=== PATIENT | female | born 1935 | race Caucasian/White ===

== ENCOUNTER 2021-11-06 11:52 | Outpatient (CLI) | payer MEDICARE, BC, SELFPAY ==
--- NOTE | ~2021-11-06 | XR_ITS ---
XR knee RT min 4V 11/06/2021 12:24 Indication: Right knee Procedure: 4 views right knee Comparison: No prior studies for comparison. Findings: There is a right total knee arthroplasty. No fracture, subluxation or dislocation. Prosthes is well seated. No significant joint effusion. Impression: 1: No acute bone or joint abnormality. Reviewed, dictated and finalized at location A. Impression: 1: No acute bone or joint abnormality.
== END 2021-11-06 11:53 | disposition home or self-care (01) ==
LOC: CHSIMG 12:03
PROVIDERS: PCP Internal Medicine; Visit Provider Internal Medicine
DX: M25.561 Pain in right knee (principal); Z96.651 Presence of right artificial knee joint
CPT/HCPCS: 73564

== ENCOUNTER 2022-09-25 19:12 | Emergency (ER) | payer MEDICARE, BC, SELFPAY ==
--- NOTE | ~2022-09-25 | CT_ITS ---
EXAMINATION: CT brain wo con DATE: 09/25/2022 19:48 INDICATION: FALL. HEAD INJURY. LACERATION TO LEFT EYEBROW. . TECHNIQUE: Computed tomography (CT) of the head was performed without intravenous contrast. The mA wa s adjusted according to patient size. Iterative reconstruction technique was employed. The dose-lengt h product was 605.33 mGy-cm. COMPARISON: None. FINDINGS: No acute intracranial hemorrhage or extra-axial fluid collection. No hydrocephalus, mass, or herniation. No acute ischemic infarct. Unremarkable dural venous sinus attenuation. No acute osseous abnormality. Left frontal soft tissue contusion. Air-fluid level in the right maxillary sinus. Right inferior frontal and bilateral ethmoid air cell m ucosal thickening, the remaining aerated spaces are clear. Mild atrophy and chronic white matter change. Atherosclerotic intracranial calcification. Bilateral l ens replacements. 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 IMPRESSION: No acute intracranial process. Right maxillary sinus air-fluid level may be related to acute sinusiti s or mucosal hemorrhage. Reviewed, dictated and finalized at location K. IMPRESSION: No acute intracranial process. Right maxillary sinus air-fluid level may be rel ated to acute sinusitis or mucosal hemorrhage.
--- NOTE | ~2022-09-25 | CT_ITS ---
EXAMINATION: CT cervical spine wo con DATE: 09/25/2022 19:49 INDICATION: fall. NECK STIFFNESS. TECHNIQUE: Computed tomography (CT) of the cervical spine was performed without intravenous contrast. Automated exposure control and iterative reconstruction technique were employed. The dose-length pro duct was 414.82 mGy-cm. COMPARISON: None. FINDINGS: Vertebral Body Alignment: Intact. Multilevel mild grade 1 listheses at C3-4 and C4-5, likely on a deg enerative basis. Cervical straightening as can occur with positioning and muscle spasm. Craniocervical and atlantoaxial alignment: Severe degenerative change, with osseous fragmentation pos sibly related to old chronic fractures/fractured osteophytes. Alignment intact. Osseous structures/fracture: No evidence of a lytic or blastic process in the visualized spine. No e vidence of acute fracture. . Cervical soft tissues: The paraspinal soft tissues planes are maintained. Degenerative changes: Multilevel severe degenerative disc disease and facet arthropathy. Severe centr al canal narrowing at C6-7. Severe left neural foraminal narrowing at C4-5. Severe bilateral neural f oraminal narrowing at C3-4. IMPRESSION: No acute fracture or traumatic malalignment in the cervical spine. Reviewed, dictated and finalized at location K.
[2022-09-25 19:14] VITALS: BP 155/88; PULSE 88; RESP 20; TEMP 36.7; O2SAT 99
--- NOTE | 2022-09-25 19:16 | ED.FALL ---
HPI - Fall General Chief Complaint: Fall Stated Complaint: fall Source: patient Mode of arrival: ambulatory Limitations: no limitations History of Present Illness HPI Narrative: 87-year-old female was chasing a cat when she fell forwards and sustained -- 1 cm laceration over the left supraorbital region. -- No loss of consciousness. No neck pain. -- Bilateral knee pain. The patient has bilateral prosthetic knees. No bruising noted on the knees. No other injuries noted. MD complaint: fall Onset (ago): hour(s) ( 1 hour ago) Fall from: standing Fall witnessed: no Place fall occurred: home Loss of consciousness: none Prolonged down time: no Symptoms prior to fall: none Location of injury: head and other ( bilateral knees) Location of injury - extremities: Bilateral: knee Severity: mild Related Data Home Medications Medication Instructions Recorded Confirmed anastrozole 1 mg tablet 1 mg PO DAILY 09/25/22 09/25/22 aspirin 81 mg tablet 81 mg PO DAILY 09/25/22 09/25/22 diltiazem HCl 180 mg 180 mg PO DAILY 09/25/22 09/25/22 capsule,extended release 24 hr levothyroxine 50 mcg tablet 50 mcg DAILY 09/25/22 09/25/22 lisinopril 20 20 tablet PO DAILY 09/25/22 09/25/22 mg-hydrochlorothiazide 12.5 mg tablet Allergies Allergy/AdvReac Type Severity Reaction Status Date / Time No Known Drug Allergies Allergy Unknown Other Verified 09/25/22 20:18 Review of Systems Review of Systems: All systems reviewed & are unremarkable except as noted in HPI and below Constitutional: Constitutional: Reports as per HPI and Reports no additional constitutional complaints Eyes: Eyes: Reports as per HPI and Reports no additional eye complaints ENT: Reports system reviewed and no additional complaints, except as documented and Reports as per HPI Cardiovascular: Cardiovascular: Reports as per HPI and Reports no additional cardiovascular complaints Respiratory: Respiratory: Reports as per HPI and Reports no additional respiratory complaints Gastrointestinal: Gastrointestinal: Reports as per HPI and Reports no additional gastrointestinal complaints Genitourinary: Genitourinary: Reports no additional female genitourinary complaints and Reports as per HPI Musculoskeletal: Musculoskeletal: Reports no additional musculoskeletal complaints and Reports as per HPI Integumentary/Breasts: Skin/Breast: Reports system reviewed and no additional complaints, except as docu Comments: left supraorbital 1 cm laceration. Neurologic: Reports system reviewed and no additional complaints, except as documented and Reports as per HPI Psychiatric: Psychiatric: Reports no additional psychiatric complaints and Reports as per HPI Endocrine: Endocrine: Reports no additional endocrine complaints and Reports as per HPI Hematologic/Lymphatic: Hematologic/Lymphatic: Reports no additional hematologic/lymphatic complaints and Reports as per HPI Allergic/Immunologic: Allergic/Immunologic: Reports no additional allergic/immunologic complaints and Reports as per HPI Exam Const: General: no acute distress Orientation/consciousness: patient oriented x3 Limitations: no limitations HENMT: Head images: 1. 1 cm vertical incision over the left supraorbital region. Full-thickness laceration Ears: external ears normal Face/Nose/Sinus: Normal external nose present Face and sinus: normal facial exam Mouth: Yes Normal oral and palatal mucosa present Throat: posterior oropharynx normal Eyes: Conjunctivae: conjunctivae normal Pupils: Equal, round and reactive pupils present EOM: EOMs intact bilaterally Direct Ophthalmoscopy: no photophobia Neck: Neck: normal visual inspection, no lymphadenopathy and no meningeal signs Chest: Chest palpation & inspection: normal inspection of the chest Resp: Effort & Inspection: normal respiratory effort Auscultation: clear to auscultation bilaterally Cardio: Rate: regular rate Rhythm: regular rhythm GI: Aus
[2022-09-25] MEDS: SILVER NITRATE (*SP) STICK 1 EACH (19:38)
[2022-09-25] MEDS: TETANUS,DIPHTHERIA,AC PERTUSSIS ADULT 0.5 ML (ADACEL) IM (19:50)
[2022-09-25] MEDS: DOXYCYCLINE HYCLATE 100 MG TABLET PO (21:00)
[2022-09-25 21:01] VITALS: BP 131/81; PULSE 88; RESP 20; TEMP 36.7; O2SAT 99
== END 2022-09-25 21:02 | disposition home or self-care (01) ==
PROVIDERS: Emergency Provider Internal Medicine Critical Care Medicine; PCP Internal Medicine
DX: S01.81XA Laceration without foreign body of other part of head, initial encounter (principal); S09.90XA Unspecified injury of head, initial encounter; M25.562 Pain in left knee; M25.561 Pain in right knee; W01.0XXA Fall on same level from slipping, tripping and stumbling without subsequent striking against object, initial encounter; J01.00 Acute maxillary sinusitis, unspecified; Z96.653 Presence of artificial knee joint, bilateral; Z79.82 Long term (current) use of aspirin; Z79.811 Long term (current) use of aromatase inhibitors; Z23 Encounter for immunization
CPT/HCPCS: 12011; 70450; 72125; 90471; 90715; 99284; A9270

== ENCOUNTER 2022-10-13 09:07 | Outpatient (NON) | payer MEDICARE, SELFPAY ==
[2022-10-13 09:38] LABS: Alanine Aminotransferase 20 U/L (14-59); Albumin Level 3.1 g/dL (3.4-5.0); Alkaline Phosphatase 113 U/L (46-116); Anion Gap 9 mmol/L (8-16); Aspartate Amino Transferase 21 U/L (15-37); Bilirubin,Total 0.6 mg/dL (0.00-1.00); Blood Urea Nitrogen 24 mg/dL (7-18); Calcium 8.9 mg/dL (8.5-10.1); Carbon Dioxide 27 mmol/L (21-32); Chloride 104 mmol/L (98-108); Estimated Glomerular Filt Rate 45; Glucose 97 mg/dL (70-99); Magnesium 1.7 mg/dL (1.8-2.4); Osmolality Calculated 294 mOsm/kg (285-295); Potassium 4.6 mmol/L (3.5-5.1); Sodium 140 mmol/L (136-145); Total Protein 6.1 g/dL (6.4-8.2)
== END 2022-10-13 09:08 | disposition home or self-care (01) ==
LOC: CHSLAB 09:09
PROVIDERS: Visit Provider Internal Medicine
DX: I10 Essential (primary) hypertension (principal); E61.2 Magnesium deficiency
CPT/HCPCS: 80053; 83735

== ENCOUNTER 2023-01-28 10:21 | Outpatient (NON) | payer MEDICARE, SELFPAY ==
[2023-01-28 10:34] LABS: Basophils Absolute Auto 0.07 K/mm3 (0.00-0.10); Basophils Percent Auto 0.7 % (0.0-1.0); Eosinophils Percent Auto 4.1 % (1.0-6.0); Hematocrit 40.4 % (35.0-42.0); Hemoglobin 13.2 g/dL (11.7-13.8); Immature Granulocyte Absolute 0.02 K/mm3 (0.00-0.00); Immature Granulocyte Percent A 0.2 % (0.0-0.0); Immature Platelet Fraction Pct 13.9 % (1.0-7.0); Lymphocytes Absolute Auto 2.84 K/mm3 (1.10-4.50); Lymphocytes Percent Auto 29.2 % (18.0-42.0); Mean Corpuscular HGB Conc 32.7 g/dL (32.0-36.0); Mean Corpuscular Hemoglobin 30.8 pg (27.0-31.0); Mean Corpuscular Volume 94.4 fL (78.0-102.0); Mean Platelet Volume 14.6 fl (9.2-11.8); Monocytes Absolute Auto 0.73 K/mm3 (0.10-0.90); Monocytes Percent Auto 7.5 % (2.0-11.0); Neutrophils Absolute Auto 5.7 K/mm3 (1.7-7.2); Neutrophils Percent Auto 58.3 % (50.0-70.0); Platelet Count Result 190 K/mm3 (150-420); Red Blood Count 4.28 M/mm3 (4.20-5.40); Red Cell Distribution Width 13.8 % (11.6-14.4); White Blood Count 9.7 K/mm3 (4.8-10.8)
[2023-01-28 11:20] LABS: Alanine Aminotransferase 38 U/L (14-59); Albumin Level 3.5 g/dL (3.4-5.0); Alkaline Phosphatase 113 U/L (46-116); Anion Gap 11 mmol/L (8-16); Aspartate Amino Transferase 30 U/L (15-37); Bilirubin,Total 0.5 mg/dL (0.00-1.00); Blood Urea Nitrogen 28 mg/dL (7-18); Calcium 9.5 mg/dL (8.5-10.1); Carbon Dioxide 26 mmol/L (21-32); Chloride 104 mmol/L (98-108); Estimated Glomerular Filt Rate 39; Glucose 103 mg/dL (70-99); Magnesium 2.1 mg/dL (1.8-2.4); Osmolality Calculated 297 mOsm/kg (285-295); Potassium 4.5 mmol/L (3.5-5.1); Sodium 141 mmol/L (136-145); Total Protein 6.5 g/dL (6.4-8.2)
== END 2023-01-28 10:22 | disposition home or self-care (01) ==
LOC: CHSLAB 10:22
PROVIDERS: Visit Provider Internal Medicine
DX: I10 Essential (primary) hypertension (principal)
CPT/HCPCS: 36415; 80053; 83735; 85025; 85055

== ENCOUNTER 2023-08-04 11:37 | Outpatient (NON) | payer MEDICARE, SELFPAY ==
[2023-08-04 13:03] LABS: Appearance Urine Sl Cloudy (Clear); Basophils Absolute Auto 0.06 K/mm3 (0.00-0.10); Basophils Percent Auto 0.7 % (0.0-1.0); Bilirubin Urine Negative (Negative); Blood Urine Negative (Negative); Color Urine Light Yellow (Yellow); Eosinophils Absolute Auto 0.31 K/mm3 (0.02-0.50); Eosinophils Percent Auto 3.4 % (1.0-6.0); Glucose Urine UA Negative (Negative); Hematocrit 41.3 % (35.0-42.0); Hemoglobin 13.6 g/dL (11.7-13.8); Immature Granulocyte Absolute 0.03 K/mm3 (0.00-0.00); Immature Granulocyte Percent A 0.3 % (0.0-0.0); Immature Platelet Fraction Pct 15.4 % (1.0-7.0); Ketones Urine Negative (Negative); Leukocyte Esterase Ur 1+ LEU/UL (Negative); Lymphocytes Absolute Auto 2.52 K/mm3 (1.10-4.50); Lymphocytes Percent Auto 27.4 % (18.0-42.0); Mean Corpuscular HGB Conc 32.9 g/dL (32-36); Mean Corpuscular Hemoglobin 31.3 pg (27.0-31.0); Mean Corpuscular Volume 94.9 fL (78.0-102.0); Mean Platelet Volume 14.9 fl (9.2-11.8); Monocytes Absolute Auto 0.68 K/mm3 (0.10-0.90); Monocytes Percent Auto 7.4 % (2.0-11.0); Neutrophils Absolute Auto 5.61 K/mm3 (1.70-7.20); Neutrophils Percent Auto 60.8 % (50.0-70.0); Nitrate Urine Positive (Negative); Platelet Count Result 159 K/mm3 (150-420); Protein Urine Negative (Negative); Red Blood Count 4.35 M/mm3 (4.20-5.40); Red Cell Distribution Width 13.5 % (11.6-14.4); Specific Grav Ur 1.015 (1.010-1.020); Urobilinogen Urine 0.2 mg/dL (0.2-1.0); White Blood Count 9.2 K/mm3 (4.8-10.8); pH Urine 6.5 (5.0-8.0)
[2023-08-04 13:12] LABS: Add Urine Microscopic? YES; Bacteria Urine 3+ /hpf; RBC Urine None seen /hpf (0-2); Squamous Epithelial Cell Urine Occasional /hpf (Few); WBC Urine 31-50 /hpf (0-3)
[2023-08-04 13:17] LABS: Alanine Aminotransferase 26 U/L (14-59); Albumin Level 3.5 g/dL (3.4-5.0); Alkaline Phosphatase 115 U/L (46-116); Anion Gap 12 mmol/L (4-12); Aspartate Amino Transferase 39 U/L (15-37); Bilirubin,Total 0.4 mg/dL (0.00-1.00); Blood Urea Nitrogen 27 mg/dL (7-18); Calcium 8.9 mg/dL (8.5-10.1); Carbon Dioxide 26 mmol/L (21-32); Chloride 104 mmol/L (98-108); Estimated Glomerular Filt Rate 41; Glucose 77 mg/dL (70-99); Osmolality Calculated 298 mOsm/kg (285-295); Potassium 4.6 mmol/L (3.5-5.1); Sodium 142 mmol/L (136-145); Thyroid Stimulating Hormone 2.79 uIU/mL (0.36-3.74); Total Protein 6.5 g/dL (6.4-8.2)
== END 2023-08-04 11:38 | disposition home or self-care (01) ==
LOC: CHSLAB 11:40
PROVIDERS: PCP Internal Medicine; Visit Provider Internal Medicine
DX: I12.9 Hypertensive chronic kidney disease with stage 1 through stage 4 chronic kidney disease, or unspecified chronic kidney disease (principal); N18.30 Chronic kidney disease, stage 3 unspecified; R06.6 Hiccough; R82.90 Unspecified abnormal findings in urine
CPT/HCPCS: 36415; 80053; 81001; 84443; 85025; 85055; 87077; 87086; 87088; 87186

== ENCOUNTER 2024-01-17 15:47 | Outpatient (CLI) | payer MEDICARE, BC, SELFPAY ==
--- NOTE | ~2024-01-17 | XR_ITS ---
EXAM: XR_KNEE1-2VRT_CR, XR_KNEE1-2VLT_CR DATE: 01/17/2024 16:55 HISTORY: Fall X 3 days, extreme bruising/swelling . COMPARISON: None available. FINDINGS: Osteopenia. No fracture or dislocation. No lytic or blastic lesion. Bilateral uncomplicate d appearing total knee arthroplasty hardware. No erosion or periosteal change. Subcutaneous stranding anterior to the right patellar tendon, possible contusion. Vascular calcifications. IMPRESSION: No acute osseous finding in the right or left knees. No radiographic evidence of hardware -related complication. Reviewed, dictated and finalized at location K. IMPRESSION: No acute osseous finding in the right or left knees. No radiographi c evidence of hardware-related complication.
--- NOTE | ~2024-01-17 | XR_ITS ---
EXAM: XR sinus min 3V, XR orbits min 4V DATE: 01/17/2024 16:55 HISTORY: Fall X 3 days, extreme bruising/discoloration to entire face . COMPARISON: None available. FINDINGS: Normal mineralization. Hyperostosis. No fracture or dislocation. 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 Intact, symmetric orbits. The aerated spaces are clear. No erosion or periosteal change. Soft tissues within normal limits. IMPRESSION: No acute osseous finding in the orbits are sinuses. If pain persists or clinical suspicio n of injury is high, recommend CT of the face for further evaluation. Reviewed, dictated and finalized at [facility] K. IMPRESSION: No acute osseous finding in the orbits are sinuses. If pain persist s or clinical suspicion of injury is high, recommend CT of the face for further evaluation.
[2024-01-17 16:14] LABS: Basophils Absolute Auto 0.06 K/mm3 (0.00-0.10); Basophils Percent Auto 0.6 % (0.0-1.0); Eosinophils Absolute Auto 0.39 K/mm3 (0.02-0.50); Hemoglobin 13.1 g/dL (11.7-13.8); Immature Granulocyte Absolute 0.03 K/mm3 (0.00-0.00); Immature Granulocyte Percent A 0.3 % (0.0-0.0); Immature Platelet Fraction Pct 12.7 % (1.0-7.0); Lymphocytes Absolute Auto 2.92 K/mm3 (1.10-4.50); Lymphocytes Percent Auto 29.6 % (18.0-42.0); Mean Corpuscular HGB Conc 33.6 g/dL (32-36); Mean Corpuscular Hemoglobin 31.6 pg (27.0-31.0); Mean Corpuscular Volume 94.2 fL (78.0-102.0); Mean Platelet Volume 13.7 fl (9.2-11.8); Monocytes Absolute Auto 0.77 K/mm3 (0.10-0.90); Monocytes Percent Auto 7.8 % (2.0-11.0); Neutrophils Absolute Auto 5.69 K/mm3 (1.70-7.20); Neutrophils Percent Auto 57.7 % (50.0-70.0); Platelet Count Result 191 K/mm3 (150-420); Red Blood Count 4.14 M/mm3 (4.20-5.40); White Blood Count 9.9 K/mm3 (4.8-10.8)
[2024-01-17 16:51] LABS: Alanine Aminotransferase 24 U/L (14-59); Albumin Level 3.7 g/dL (3.4-5.0); Alkaline Phosphatase 116 U/L (46-116); Anion Gap 10 mmol/L (4-12); Aspartate Amino Transferase 30 U/L (15-37); Bilirubin,Total 0.5 mg/dL (0.00-1.00); Blood Urea Nitrogen 35 mg/dL (7-18); Calcium 9.1 mg/dL (8.5-10.1); Carbon Dioxide 27 mmol/L (21-32); Chloride 101 mmol/L (98-108); Cholesterol 175 mg/dL (0-200); Estimated Glomerular Filt Rate 29; Free T4 Free Thyroxine 1.01 ng/dL (0.76-1.46); Glucose 89 mg/dL (70-99); HDL Direct 39 mg/dL (40-60); LDL Cholesterol Calculated 100 mg/dL (<130); Osmolality Calculated 293 mOsm/kg (285-295); Potassium 3.9 mmol/L (3.5-5.1); Sodium 138 mmol/L (136-145); Thyroid Stimulating Hormone 2.53 uIU/mL (0.36-3.74); Total Protein 6.8 g/dL (6.4-8.2); Triglycerides 181 mg/dL (0-150)
== END 2024-01-17 15:48 | disposition home or self-care (01) ==
LOC: CHSLAB 15:55
PROVIDERS: PCP Internal Medicine; Visit Provider Nurse Practitioner Family
DX: S89.91XA Unspecified injury of right lower leg, initial encounter (principal); S89.92XA Unspecified injury of left lower leg, initial encounter; S09.92XA Unspecified injury of nose, initial encounter; I10 Essential (primary) hypertension; N18.2 Chronic kidney disease, stage 2 (mild); E03.9 Hypothyroidism, unspecified
CPT/HCPCS: 36415; 70200; 70220; 73560; 80053; 80061; 84439; 84443; 85025; 85055

== ENCOUNTER 2024-01-25 08:44 | Outpatient (CLI) | payer MEDICARE, BC, SELFPAY ==
[2024-01-25 09:30] LABS: Blood Urea Nitrogen 29 mg/dL (7-18); Calcium 9.6 mg/dL (8.5-10.1); Chloride 101 mmol/L (98-108); Estimated Glomerular Filt Rate 37; Glucose 100 mg/dL (70-99); Osmolality Calculated 293 mOsm/kg (285-295); Potassium 4.6 mmol/L (3.5-5.1); Sodium 139 mmol/L (136-145)
[2024-01-25 09:37] LABS: Anion Gap 8 mmol/L (4-12); Carbon Dioxide 30 mmol/L (21-32)
== END 2024-01-25 08:45 | disposition home or self-care (01) ==
LOC: CHSLAB 08:48
PROVIDERS: PCP Internal Medicine; Visit Provider Nurse Practitioner Family
DX: E86.0 Dehydration (principal)
CPT/HCPCS: 36415; 80048

== ENCOUNTER 2024-05-09 18:32 | Emergency (ER) | payer MEDICARE, SELFPAY ==
[2024-05-09] VITALS (20 sets, daily range): BP systolic 128–146; BP diastolic 60–82; PULSE 61; RESP 20; TEMP 36.6; O2SAT 8–100
--- NOTE | ~2024-05-09 | XR_ITS ---
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 RESULT: Lines, tubes, and devices: Right axillary clips. Lungs and pleura: 1.5 cm nodular opacity in the right lower lobe, better seen in the prior CT abdome n pelvis. Senescent changes. No focal consolidation, pleural effusion, or pneumothorax. Cardiomediastinal silhouette: Normal heart size. Mild aortic unfolding. Large hiatal hernia. Other: No acute osseous or upper abdominal finding. IMPRESSION: 1.5 cm right lower lobe nodule, demonstrated to be cavitary in the prior CT, differential includes ma lignancy, infection, septic embolus, or noninfectious granuloma. Reviewed, dictated and finalized at location K. SUPERVISOR IMPRESSION: 1.5 cm right lower lobe nodule, demonstrated to be cavitary in the prior CT, di fferential includes malignancy, infection, septic embolus, or noninfectious gra nuloma.
--- NOTE | ~2024-05-09 | CT_ITS ---
EXAMINATION: CT abdomen pelvis wo con DATE: 05/09/2024 20:27 INDICATION: abd pain, N/V/D x 4 days TECHNIQUE: Computed tomography (CT) of the abdomen and pelvis was performed without intravenous contr ast. Automated exposure control and iterative reconstruction technique were employed. The dose-length product was 751.96 mGy-cm. COMPARISON: None. FINDINGS: Lower thorax: Coronary artery calcifications. Large hiatal hernia. 1.5 cm cavitary, thick-walled, per ipheral right lower lobe nodule. Liver: Multiple hepatic cysts measuring up to 3.2 cm in the left lobe. Biliary/Gallbladder: Gallbladder is normal. No bile duct dilation. Pancreas: No mass or duct dilation. Mild fatty atrophy. Spleen: Normal. Adrenals:No mass. Kidneys: No suspicious mass, obstructing stone, or hydronephrosis. Moderate left and mild right renal atrophy. GI tract: No small or large bowel dilation. Normal appendix. Diverticulosis without diverticulitis. Mesentery/Peritoneum: No ascites, mass, or free air. Retroperitoneum: No mass. Pelvis: Normal urinary bladder. Absent uterus. Soft Tissues: Soft tissues and body wall unremarkable. Bones: No acute osseous finding. IMPRESSION: 1.5 cm cavitary right lower lobe nodule may represent malignancy, infection, septic embolus, or nonin fectious granuloma. No acute abdominopelvic process detected. Reviewed, dictated and finalized at location K. ON SETTER IMPRESSION: 1.5 cm cavitary right lower lobe nodule may represent malignancy, infection, se ptic embolus, or noninfectious granuloma. No acute abdominopelvic process detected.
--- NOTE | 2024-05-09 18:39 | ED.NAVMDI ---
HPI - Nausea/Vomiting/Diarrhea General Chief complaint: Nausea/Vomiting/Diarrhea Stated complaint: DIARRHEA Time Seen by Provider: 05/09/24 18:39 Source: patient and family Mode of arrival: ambulatory Limitations: no limitations History of Present Illness HPI Narrative: Patient is an 88-year-old female with 4 days history of loose stools and diarrhea. She claims that the stool has been black. No associated nausea vomiting. No chest pain or shortness of breath. She has abdominal pain which is of the lower abdomen across the abdomen. No blood thinners and no history of GI bleeds. Patient never had colonoscopy. MD elicited complaint: diarrhea and abdominal pain Pertinent past history: other ( Hypertension, hypothyroid) Onset (ago): day(s) (4) Description of vomiting: none Description of diarrhea: mucus, watery and black tarry Associated nausea: No Associated abdominal pain: Yes Location of pain: diffuse, RLQ, LLQ and suprapubic Radiation: diffuse Pain consistency: constant Severity: moderate Pain scale (0-10): 5 Quality: cramping and sharp Exacerbating factors: none Relieving factors: none Context: other ( patient having diarrhea and dark stools for the past 4 days) Associated symptoms: loss of appetite, malaise, weakness ( generalized) and fatigue Treatment prior to arrival: none Related Data Home Medications ?Medication ?Instructions ?Recorded ?Confirmed ?Last Taken ?Type anastrozole 1 mg tablet 1 mg PO DAILY 09/25/22 05/09/24 09/25/22 History aspirin 81 mg tablet 81 mg PO DAILY 09/25/22 05/09/24 09/25/22 History diltiazem HCl 180 mg 180 mg PO DAILY 09/25/22 05/09/24 09/25/22 History capsule,extended release 24 hr levothyroxine 50 mcg tablet 50 mcg PO DAILY 09/25/22 05/09/24 09/25/22 History montelukast 10 mg tablet 10 mg PO DAILY 05/09/24 05/09/24 Unknown History spironolactone 25 1 tablet PO DAILY 05/09/24 05/09/24 Unknown History mg-hydrochlorothiazide 25 mg tablet Allergies Allergy/AdvReac Type Severity Reaction Status Date / Time No Known Drug Allergies Allergy Unknown Other Verified 05/09/24 18:42 Review of Systems Review of Systems: All systems reviewed & are unremarkable except as noted in HPI and below Constitutional: Constitutional: Reports no additional constitutional complaints Eyes: Eyes: Reports no additional eye complaints ENT: Reports system reviewed and no additional complaints, except as documented Cardiovascular: Cardiovascular: Reports no additional cardiovascular complaints Respiratory: Respiratory: Reports no additional respiratory complaints Gastrointestinal: Gastrointestinal: Reports no additional gastrointestinal complaints Genitourinary: Genitourinary: Reports no additional female genitourinary complaints Musculoskeletal: Musculoskeletal: Reports no additional musculoskeletal complaints Integumentary/Breasts: Skin/Breast: Reports system reviewed and no additional complaints, except as docu Neurologic: Reports system reviewed and no additional complaints, except as documented Psychiatric: Psychiatric: Reports no additional psychiatric complaints Endocrine: Endocrine: Reports no additional endocrine complaints Hematologic/Lymphatic: Hematologic/Lymphatic: Reports no additional hematologic/lymphatic complaints Allergic/Immunologic: Allergic/Immunologic: Reports no additional allergic/immunologic complaints Exam Const: General: ill appearing Nutritional Appearance: well nourished Orientation/consciousness: patient oriented x3 Limitations: no limitations HENMT: Head: normal to inspection Ears: external ears normal Face/Nose/Sinus: Normal external nose present Eyes: Conjunctivae: conjunctivae normal Cornea: corneas normal Pupils: Equal, round and reactive pupils present Neck: Neck: normal visual inspection Chest: Chest palpation & inspection: normal inspection of the chest Resp: Effort & Inspection: normal respiratory effort and not labored Auscultation: clear to auscultation bilaterally and no crackles Cardio: Rate: regular rate Rhythm: regular rhythm Heart sounds: no murmurs GI: Inspection: non-distended GI Palp: Yes Soft to palpation, Yes Tenderness to palpation present (GI) ( diffuse lower abdomen), No Guarding due to palpation present (GI), No Rigid due to palpation, No Hernia present, No Palpable mass present and No Rebound tenderness present Auscultation: Hypoactive bowel sounds present : General: Yes bladder normal to palpation Back/Spine/Pelvis: Back: no CVA tenderness Skin: General skin exam: normal color Rashes: no rashes Wounds: no wounds Neuro: General: patient oriented x3 Cranial nerves: Yes Nystagmus not present Speech: normal speech Gait exam (Neuro): Normal gait present Extrem: General: normal to inspection Psych: Mental Status: mental status grossly normal Affect: normal affect Attitude: cooperative Course Vital Signs Vital signs: Vital Signs Temperature 36.6 C 05/09/24 18:40 Pulse Rate 61 05/09/24 18:40 Respiratory Rate 20 05/09/24 18:40 Blood Pressure 146/82 H 05/09/24 18:40 Pulse Oximetry 98 05/09/24 18:40 Oxygen Delivery Room Air 05/09/24 18:40 Temperature 36.6 C 05/09/24 18:40 Pulse Rate 61 05/09/24 18:40 Respiratory Rate 20 05/09/24 18:40 Blood Pressure 135/69 05/09/24 19:46 Pulse Oximetry 100 05/09/24 21:31 Oxygen Delivery Room Air 05/09/24 18:40 MDM - Nausea/Vomiting/Diarrhea MDM Narrative Medical decision making narrative: patient is an 88-year-old female with diarrhea and dark stools for the past 4 days. We will do a GI workup at this time. Lab Data Attestation: I reviewed the patient's lab results. 05/09/24 19:07 05/09/24 19:07 Labs: Lab Results 05/09/24 05/09/24 05/09/24 Range/Units 19:07 20:35 20:47 WBC 13.7 H (4.8-10.8) K/mm3 RBC 2.82 L (4.20-5.40) M/mm3 Hgb 8.8 L (11.7-13.8) g/dL Hct 26.4 L (35.0-42.0) % MCV 93.6 (78.0-102.0) fL MCH 31.2 H (27.0-31.0) pg MCHC 33.3 (32-36) g/dL RDW 13.8 (11.6-14.4) % Plt Count 193 (150-420) K/mm3 MPV 13.8 H (9.2-11.8) fl Immature Gran % (Auto) 0.6 H (0.0-0.0) % Neut % (Auto) 73.4 H (50.0-70.0) % Lymph % (Auto) 18.1 (18.0-42.0) % [place] % (Auto) 6.5 (2.0-11.0) % Eos % (Auto) 0.9 L (1.0-6.0) % Baso % (Auto) 0.5 (0.0-1.0) % Lymph # (Auto) 2.48 (1.10-4.50) K/mm3 [place] # (Auto) 0.89 (0.10-0.90) K/mm3 Eos # (Auto) 0.13 (0.02-0.50) K/mm3 Baso # (Auto) 0.07 (0.00-0.10) K/mm3 Abs Immat Gran (auto) 0.08 H (0.00-0.00) K/mm3 Absolute Neuts (auto) 10.08 H (1.70-7.20) K/mm3 Absolute Nucleated RBC 0.02 H (0.00-0.00) K/mm3 Nucleated RBC % 0.1 H (0-0.0) % % Immature Plt Fraction 10.3 H (1.0-7.0) % PT 11.1 (9.50-12.1) Seconds INR 1.0 APTT 24.8 (23.9-30.70) Sec Sodium 139 (136-145) mmol/L Potassium 3.4 L (3.5-5.1) mmol/L Chloride 104 (98-108) mmol/L Carbon Dioxide 24 (21-32) mmol/L Anion Gap 11 (4-12) mmol/L BUN 66 H (7-18) mg/dL Creatinine 1.53 H (0.55-1.02) mg/dL Estim Creat Clear Calc 26 ml/min Estimated GFR 32 L (59 - ) Glucose 146 H (70-99) mg/dL Calculated Osmolality 310 H (285-295) mOsm/kg Lactic Acid 2.2 H (0.4-2.0) mmol/L Calcium 8.9 (8.5-10.1) mg/dL Magnesium 1.9 (1.8-2.4) mg/dL Total Bilirubin 0.3 (0.00-1.00) mg/dL AST 21 (15-37) U/L ALT 26 (14-59) U/L Alkaline Phosphatase 80 (46-116) U/L Troponin I 9.5 (0.00-60.4) ng/L Total Protein 6.0 L (6.4-8.2) g/dL Albumin 3.3 L (3.4-5.0) g/dL Lipase 84 H (16-77) U/L Urine Color Light yellow (Yellow) Urine Appearance Clear (Clear) Urine pH 5.5 (5.0-8.0) Ur Specific [place] 1.020 (1.010-1.020) Urine Protein Negative (Negative) Urine Glucose (UA) Negative (Negative) Urine Ketones Negative (Negative) Ur Blood (Man) 1+ H (Negative) Urine Nitrate Positive H (Negative) Urine Bilirubin Negative (Negative) Urine Urobilinogen 0.2 (0.2-1.0) mg/dL Leukocyte Esterase Rfl 2+ H (Negative) KARIME/UL Urine RBC 3-5 H (0-2) /hpf Urine WBC 16-20 H (0-3) /hpf Ur Squamous Epith Cells Few (Few) /hpf Urine Bacteria 2+ H (None) /hpf Stool Occult Blood Positive A (Negative) Blood Type O Positive Antibody Screen Negative 05/09/24 Range/Units 22:00 WBC (4.8-10.8) K/mm3 RBC (4.20-5.40) M/mm3 Hgb (11.7-13.8) g/dL Hct (35.0-42.0) % MCV (78.0-102.0) fL MCH (27.0-31.0) pg MCHC (32-36) g/dL RDW (11.6-14.4) % Plt Count (150-420) K/mm3 MPV (9.2-11.8) fl Immature Gran % (Auto) (0.0-0.0) % Neut % (Auto) (50.0-70.0) % Lymph % (Auto) (18.0-42.0) % [place] % (Auto) (2.0-11.0) % Eos % (Auto) (1.0-6.0) % Baso % (Auto) (0.0-1.0) % Lymph # (Auto) (1.10-4.50) K/mm3 [place] # (Auto) (0.10-0.90) K/mm3 Eos # (Auto) (0.02-0.50) K/mm3 Baso # (Auto) (0.00-0.10) K/mm3 Abs Immat Gran (auto) (0.00-0.00) K/mm3 Absolute Neuts (auto) (1.70-7.20) K/mm3 Absolute Nucleated RBC (0.00-0.00) K/mm3 Nucleated RBC % (0-0.0) % % Immature Plt Fraction (1.0-7.0) % PT (9.50-12.1) Seconds INR APTT (23.9-30.70) Sec Sodium (136-145) mmol/L Potassium (3.5-5.1) mmol/L Chloride (98-108) mmol/L Carbon Dioxide (21-32) mmol/L Anion Gap (4-12) mmol/L BUN (7-18) mg/dL Creatinine (0.55-1.02) mg/dL Estim Creat Clear Calc ml/min Estimated GFR (59 - ) Glucose (70-99) mg/dL Calculated Osmolality (285-295) mOsm/kg Lactic Acid 1.7 (0.4-2.0) mmol/L Calcium (8.5-10.1) mg/dL Magnesium (1.8-2.4) mg/dL Total Bilirubin (0.00-1.00) mg/dL AST (15-37) U/L ALT (14-59) U/L Alkaline Phosphatase (46-116) U/L Troponin I (0.00-60.4) ng/L Total Protein (6.4-8.2) g/dL Albumin (3.4-5.0) g/dL Lipase (16-77) U/L Urine Color (Yellow) Urine Appearance (Clear) Urine pH (5.0-8.0) Ur Specific [place] (1.010-1.020) Urine Protein (Negative) Urine Glucose (UA) (Negative) Urine Ketones (Negative) Ur Blood (Man) (Negative) Urine Nitrate (Negative) Urine Bilirubin (Negative) Urine Urobilinogen (0.2-1.0) mg/dL Leukocyte Esterase Rfl (Negative) KARIME/UL Urine RBC (0-2) /hpf Urine WBC (0-3) /hpf Ur Squamous Epith Cells (Few) /hpf Urine Bacteria (None) /hpf Stool Occult Blood (Negative) Blood Type Antibody Screen Imaging Data Attestation: I personally reviewed and interpreted this imaging study as follows: Radiologist's impression: chest x-ray shows IMPRESSION: 1.5 cm right lower lobe nodule, demonstrated to be cavitary in the prior CT, differential includes malignancy, infection, septic embolus, or noninfectious granuloma. CT scan of the abdomen and pelvis was negative for acute process; discussion of the right lower lobe nodule was also seen again ECG Data EKG #1: Attestation: I personally reviewed and interpreted this ECG as follows: ECG completion date: 05/09/24 ECG completion time: 19:54 EKG Interpretation: normal rate, sinus rhythm, PVCs, non-specific ST changes, ST depression, widened QRS, normal QT and left axis Critical Care Time Critical Care Time Critical Care Time: Yes Total Critical Care Time: 30 Discharge Plan Discharge Clinical Impression: Acute lower gastrointestinal bleeding, ARISTIDES (acute kidney injury), Acute dehydration, Abnormal ECG, Lung mass, Acute UTI Anemia Qualifiers: Anemia type: other cause Other causes of anemia: acute posthemorrhagic Qualified Code(s): D62 - Acute posthemorrhagic anemia Patient Disposition: Acute Care Hospital Condition: Serious Patient Language: [place] Prescriptions: No Action anastrozole 1 mg tablet 1 mg PO DAILY diltiazem HCl 180 mg capsule,extended release 24hr 180 mg PO DAILY levothyroxine 50 mcg tablet 50 mcg PO DAILY Adult Aspirin 81 mg Tablet 81 mg PO DAILY spironolacton-hydrochlorothiaz 25-25 mg tablet 1 tablet PO DAILY montelukast 10 mg tablet 10 mg PO DAILY Follow-up/Referrals: Yosvany Collins MD [Primary Care Provider] - Time of Disposition: 20:47
--- NOTE | 2024-05-09 18:40 | ECG_ITS ---
Test Date: 2024-05-09 19:19:06 Measurements Intervals [place] Rate: 94 P: 74 WA: 170 QRS: 3 QRSD: 97 T: 55 QT: 408 QTc: 512 Interpretive Statements SINUS RHYTHM WITH FREQUENT VENTRICULAR PREMATURE COMPLEXES WITH OCCASIONAL SUPRAVENTRICULAR PREMATURE COMPLEXES NONSPECIFIC ST & T-WAVE ABNORMALITY No previous ECG available for comparison Electronically Signed On 05-11-2024 12:27:10 THIOKOL OPERATOR by Kaleb Moss M.D.
[2024-05-09] MEDS: PANTOPRAZOLE SODIUM IV 40 MG VIAL 80 MG IV PUSH (19:02)
[2024-05-09] MEDS: SODIUM CHLORIDE 0.9% IV 1,000 ML 999 ML IV CONT ×2 (19:03→20:46)
[2024-05-09 19:12] LABS: Basophils Absolute Auto 0.07 K/mm3 (0.00-0.10); Basophils Percent Auto 0.5 % (0.0-1.0); Eosinophils Absolute Auto 0.13 K/mm3 (0.02-0.50); Eosinophils Percent Auto 0.9 % (1.0-6.0); Hematocrit 26.4 % (35.0-42.0); Hemoglobin 8.8 g/dL (11.7-13.8); Immature Granulocyte Absolute 0.08 K/mm3 (0.00-0.00); Immature Granulocyte Percent A 0.6 % (0.0-0.0); Immature Platelet Fraction Pct 10.3 % (1.0-7.0); Lymphocytes Absolute Auto 2.48 K/mm3 (1.10-4.50); Lymphocytes Percent Auto 18.1 % (18.0-42.0); Mean Corpuscular HGB Conc 33.3 g/dL (32-36); Mean Corpuscular Hemoglobin 31.2 pg (27.0-31.0); Mean Corpuscular Volume 93.6 fL (78.0-102.0); Mean Platelet Volume 13.8 fl (9.2-11.8); Monocytes Absolute Auto 0.89 K/mm3 (0.10-0.90); Monocytes Percent Auto 6.5 % (2.0-11.0); Neutrophils Absolute Auto 10.08 K/mm3 (1.70-7.20); Neutrophils Percent Auto 73.4 % (50.0-70.0); Nucleated Red Blood Cells Absolute Auto 0.02 K/mm3 (0.00-0.00); Nucleated Red Blood Cells Perc 0.1 % (0-0.0); Platelet Count Result 193 K/mm3 (150-420); Red Blood Count 2.82 M/mm3 (4.20-5.40); Red Cell Distribution Width 13.8 % (11.6-14.4); White Blood Count 13.7 K/mm3 (4.8-10.8)
[2024-05-09 19:25] LABS: Partial Thromboplastin Time 24.8 Sec (23.9-30.70); Prothrombin Time 11.1 Seconds (9.50-12.1)
[2024-05-09 19:29] LABS: Lactic Acid Reflex 2.2 mmol/L (0.4-2.0)
[2024-05-09 19:42] LABS: Alanine Aminotransferase 26 U/L (14-59); Albumin Level 3.3 g/dL (3.4-5.0); Alkaline Phosphatase 80 U/L (46-116); Anion Gap 11 mmol/L (4-12); Aspartate Amino Transferase 21 U/L (15-37); Bilirubin,Total 0.3 mg/dL (0.00-1.00); Blood Urea Nitrogen 66 mg/dL (7-18); Calcium 8.9 mg/dL (8.5-10.1); Carbon Dioxide 24 mmol/L (21-32); Chloride 104 mmol/L (98-108); Estimated CRCL calculation 26 ml/min; Estimated Glomerular Filt Rate 32; Glucose 146 mg/dL (70-99); Lipase 84 U/L (16-77); Osmolality Calculated 310 mOsm/kg (285-295); Potassium 3.4 mmol/L (3.5-5.1); Sodium 139 mmol/L (136-145)
[2024-05-09 19:43] LABS: Magnesium 1.9 mg/dL (1.8-2.4); Troponin I 9.5 ng/L (0.00-60.4)
[2024-05-09 20:38] LABS: Add Urine Microscopic? YES; Appearance Urine Clear (Clear); Bilirubin Urine Negative (Negative); Blood Urine 1+ (Negative); Color Urine Light Yellow (Yellow); Glucose Urine UA Negative (Negative); Ketones Urine Negative (Negative); Leukocyte Esterase Ur 2+ LEU/UL (Negative); Nitrate Urine Positive (Negative); Protein Urine Negative (Negative); Urobilinogen Urine 0.2 mg/dL (0.2-1.0); pH Urine 5.5 (5.0-8.0)
[2024-05-09 20:45] LABS: Bacteria Urine 2+ /hpf; Squamous Epithelial Cell Urine Few /hpf (Few); WBC Urine 16-20 /hpf (0-3)
[2024-05-09 21:01] LABS: Occult Blood Positive (Negative)
[2024-05-09 22:08] LABS: Reflex Lactic Acid Yes or No Add Lactic
[2024-05-09 22:30] LABS: Lactic Acid 1.7 mmol/L (0.4-2.0)
[2024-05-10] VITALS (12 sets, daily range): BP systolic 132; BP diastolic 80; PULSE 86–97; RESP 10–17; TEMP 36.6; O2SAT 82–99
--- NOTE | 2024-05-12 12:32 | PC.NURSE ---
PRELIMINARY BLOOD CULTURE; NO GROWTH TO DATE. PRELIMINARY URINE CULTURE; ESCHERICHIA COLI, GROUP B STREPTOCOCCUS ISOLATED; WILL WAIT FOR FINAL CULTURE AND SENSITIVITY.
--- NOTE | 2024-05-15 13:53 | PC.NURSE ---
final urine culture reviewed. 10-49,000 ecoli isolated. pt transferred to [facility]. bucket turner on 6th floor contacted and report shared.
--- NOTE | 2024-05-16 14:21 | PC.NURSE ---
blood culture reviewed, no growth 5 days
--- OUTSIDE RECORDS SUMMARY | 2024-05-16 16:31 | XMS_ITS | Clinical Summary ---
Author Organization [facility] [address] [place] [address] Care Team Providers Care Concert Pianist Name Role Phone Yosvany Collins MD Primary Care Provider Allergies Active Allergy Reactions Criticality Noted Date Comments Penicillin Rash Medium 06/16/2022 Medications levothyroxine (SYNTHROID) 50 mcg tablet Take 0.5 tablets (25 mcg total) by mouth daily 3 Active montelukast (SINGULAIR) 10 mg tablet Take 1 tablet (10 mg total) by mouth nightly Active spironolactone -hydroCHLOROth iazide (ALDACTAZIDE) 25-25 mg per tablet Take 1 tablet by mouth daily Active pantoprazole DR (PROTONIX) 40 mg EC tabletIndicati ons:Treatment of Non-Bleeding Gastric Disorder Take 1 tablet (40 mg total) by mouth daily 30 tablet 5 06/11/19 25 Active ciprofloxacin (CIPRO) 500 mg tablet Take 1 tablet (500 mg total) by mouth 2 (two) times a day for 7 days 14 tablet 5 05/19/19 25 Active dilTIAZem CD 180 mg 24 hr capsule Take 1 capsule (180 mg total) by mouth daily 3 05/10/19 25 Discontinued lisinopril-hyd roCHLOROthiazi de (ZESTORETIC) 20-12.5 mg per tablet Take 1 tablet by mouth daily 3 05/10/19 25 Discontinued anastrozole (ARIMIDEX) 1 mg tablet Take 1 mg by mouth daily 05/10/19 25 Discontinued Active Problems Problem Noted Date Diagnosed Date GI bleed 05/10/2024 Bilateral impacted cerumen 06/16/2022 Sensorineural hearing loss (SNHL) of both ears 0 06/16/2022 Encounters Date Type Department Care Team Description 05/11/2024 9:03 AM PAINTER PLATE Anesthesia Event [facility] [address] [place] [phone] Rene Lofton MD 05/11/2024 9:00 AM PAINTER PLATE - 05/11/2024 9:30 AM PAINTER PLATE Surgery [facility] [address] [place] [phone] Jose Le MD COLONOSCOPY 05/10/2024 2:30 PM PAINTER PLATE - 05/10/2024 3:00 PM PAINTER PLATE Surgery [facility] [address] [place] [phone] Jose Le MD EGD 05/10/2024 2:05 PM PAINTER PLATE Anesthesia Event [facility] [address] [place] [phone] Brett Mcgraw MD 05/10/2024 4:45 AM PAINTER PLATE - 05/12/2024 5:30 PM PAINTER PLATE Hospital Encounter [address] [phone] Cash Tejeda DO Sripada, Sarada, MD Gastrointestinal hemorrhage, unspecified gastrointestinal hemorrhage type [K92.2] (Primary Dx); Gastrointestinal hemorrhage, unspecified gastrointestinal hemorrhage type Discharge Disposition: Discharge to home or self care 05/09/2024 Orders Only [facility] Hospitalists [address] [place] [phone] Cash Tejeda DO from Last 3 Months Surgical History Surgery Date Site/Laterality Comments HYSTERECTOMY 05/09/1974 - 05/08/1975 TONSILLECTOMY 05/09/1960 - 05/08/1961 Bilateral REPLACEMENT TOTAL KNEE 05/09/2011 - 05/08/2012 Bilateral Medical History Medical History Date Comments Breast cancer (HCC) Hypothyroidism History of kidney problems Hypertension Family History Medical History Relation Name Comments Bladder Cancer Brother Brain cancer Brother Breast cancer Sister Relation Name Status Comments Brother Sister Social History Tobacco Use Types Packs/Day Years Used Date Smoking Tobacco: Never Smokeless Tobacco: Never Tobacco Cessation:Counseling Given: Not Answered [facility] Utilities Answer Date Recorded In the past 12 months has th e [place] [employer], gas, oil, or water Eachbaby threatened to shut off services in your home? No 05/10/2024 Social Connection and Isolation Panel [NHANES] A nswer Date Recorded In a typical week, how many times do you talk on the phone with family, friends, or neighbors? Three times a week 05/10/2024 How often do you get togethe r with friends or relatives? Twice a week 05/10/2024 How often do you attend chur ch or denominational services? Never 05/10/2024 Do you belong to any clubs o r organizations such as oriental orthodox groups, unions, fraternal or athletic groups, or school groups? No 05/10/2024 How often do you attend meet ings of the clubs or organizations you belong to? Never 05/10/2024 Are you , , di vorced, , never , or living with a partner? 05/10/2024 AUDIT-C Answer Date Recorded Q1: How often do you have a drink containing alcohol? Never 05/10/2024 Q2: How many drinks containi ng alcohol do you have on a typical day when you are drinking? Patient does not drink Q3: How often do you have si x or more drinks on one occasion? Never 05/10/2024 Overall Financial Resource Strain (CARDIA) Answe r Date Recorded How hard is it for you to pa y for the very basics like food, housing, medical care, and heating? Not hard at all 05/10/2024 Hunger Vital Sign Answer Date Recorded Within the past 12 months, y ou worried that your food would run out before you got the money to buy more. Never true 05/10/19 25 Within the past 12 months, t he food you bought just didn't last and you didn't have money to get more. Never true 05/10/2024 PRAPARE - Transportation Answer Date Re corded In the past 12 months, has l ack of transportation kept you from medical appointments or from getting medications? No 06/2024 In the past 12 months, has l ack of transportation kept you from meetings, work, or from getting things needed for daily living? No 05/10/2024 Housing Stability Vital Sign Answer Tommy e Recorded In the last 12 months, was t here a time when you were not able to pay the mortgage or rent on time? No 05/10/2024 In the past 12 months, how m any times have you moved where you were living? 0 05/10/2024 At any time in the past [address] [facility], were you homeless or living in a chcf (including now)? No 05/10/2024 Personal Safety Answer Date Recorded Have you ever been in or are you currently in a harmful physical or emotional relationship or is someone making you feel afraid or unsafe? Denies 05/10/2024 Comments No Sex and Gender Information Value Date Recorded Sex Assigned at Not on file Legal Sex Female 3:47 PM PAINTER PLATE Gender Identity Not on file Sexual Orientation Not on file Obstetrics History Last Filed Vital Signs Vital Sign Reading Time Taken Comments Blood Pressure 149/68 05/12/2024 12:56 PM PAINTER PLATE Pulse 95 05/12/2024 12:56 PM PAINTER PLATE Temperature 36.5 ??C (97.7 ??F) 05/12/2024 12:[address] Respiratory Rate 18 05/11/2024 10:11 AM PAINTER PLATE Oxygen Saturation 100% 05/12/2024 12:56 PM PAINTER PLATE Inhaled Oxygen Concentration - - Weight 91.2 kg (201 lb) 05/11/2024 8:32 AM PAINTER PLATE Height 165.1 cm (5' 5 ) 05/11/2024 8:32 AM PAINTER PLATE Body Mass Index 33.45 05/11/2024 8:32 AM PAINTER PLATE Plan of Treatment Health Maintenance Due Date Last Done Comments Depression Screening 1935 Hepatitis B Screening 09/14/1953 Well Visit 65+ 09/14/2000 Fall Risk Assessment 05/12/2025 05/12/2024 DTaP/Tdap/Td Vaccine (2 - Td or Tdap) 09/25/2032 09/25/2022 Pneumococcal vaccine 65+ Completed 10/28/2022 Zoster Vaccine Completed 11/28/2023, 09/05/2023 Covid-19 Vaccine Completed 02/07/2024, , 05/13/2022, Additional history exists Influenza Vaccine Completed 02/07/2024, , 03/09/2022 Procedures Procedure Name Priority Date/Time Associated Diagnosis Comments FL SMALL BOWEL SERIES IP Routine 05/12/2024 9:17 AM PAINTER PLATE EGFR Routine 05/12/2024 5:14 AM PAINTER PLATE BASIC METABOLIC PANEL Routine 05/12/2024 5:14 AM PAINTER PLATE COLONOSCOPY 05/11/2024 9:03 AM PAINTER PLATE Gastrointestinal hemorrhage, unspecified gastrointestinal hemorrhage type COLONOSCOPY 05/11/2024 8:42 AM PAINTER PLATE CBC WITHOUT DIFFERENTIAL STAT 025 6:42 AM PAINTER PLATE XR CHEST PA LATERAL 2 VIEWS IP Routine 06/2024 3:45 PM PAINTER PLATE ESOPHAGOGASTRODUODENOSCOPY 05/10 2:05 PM PAINTER PLATE Gastrointestinal hemorrhage, unspecified gastrointestinal hemorrhage type EGD 05/10/2024 1:54 PM PAINTER PLATE EGFR Routine 05/10/2024 6:37 AM PAINTER PLATE DIFFERENTIAL AUTO Routine 05/10/2024 6:37 AM PAINTER PLATE PROTIME-INR Routine 05/10/2024 6:37 AM PAINTER PLATE COMPREHENSIVE METABOLIC PANEL Routine 6:37 AM PAINTER PLATE CBC WITH AUTO DIFFERENTIAL Routine 05/10 6:37 AM PAINTER PLATE from Last 3 Months Results * FL Small Bowel Series (05/12/2024 9:17 AM PAINTER PLATE) Anatomical Region Laterality Modality Body N/A Radio Fluoroscop y 05/12/2024 3:01 PM PAINTER PLATE Impressions 05/12/2024 3:01 PM PAINTER PLATE No evidence of small bowel mass identified. Electronically signed by: Rene Barone M.D. Narrative 05/12/2024 3:01 PM PAINTER PLATE EXAM: ??Small bowel series. HISTORY: Concern for small bowel mass COMPARISON: ??CT 05/04/2024 FINDINGS: ?? The patient was given water soluble contrast to drink and serial overhead films were obtained. ??Normal bowel gas pattern noted on the independent living instructor radiograph. ??Surgical clips noted in the right upper quadrant and pelvis. ??Contrast reaches the colon by 20 minutes. ??No evidence of small bowel mass. Procedure Note Rene Barone MD - 05/12/2024 EXAM: Small bowel series. HISTORY: Concern for small bowel mass COMPARISON: CT 05/04/2024 FINDINGS: The patient was given water soluble contrast to drink and serial overhead films were obtained. Normal bowel gas pattern noted on the independent living instructor radiograph. Surgical clips noted in the right upper quadrant and pelvis. Contrast reaches the colon by 20 minutes. No evidence of small bowel mass. IMPRESSION: No evidence of small bowel mass identified. Electronically signed by: Rene Barone M.D. Missy Shipley MD IMG FLUOROSCOPY PROCEDURES Fin al Result * (ABNORMAL) eGFR (05/12/2024 5:14 AM PAINTER PLATE) eGFR 43(L) >=60 mL/min/1. 73 m2 Comment: Interpretive Data Reference Interval Normal ?>/= 90 mL/min/1.73m2 Mildly decreased* ? 60 - 89 mL/min/1.73m2 Mildly to moderately decreased ?45 - 59 mL/min/1.73m2 Moderately to severely decreased ??30 - 44 mL/min/1.73m2 Severely decreased ?15 - 29 mL/min/1.73m2 Kidney Failure ?< 15 ??mL/min/1.73m2 *Relative to young adult level Estimated glomerular filtration rate is determined by the 2020 CKD-EPI equation recommended by the National Kidney Foundation (A Unifying Approach to GFR Estimation: Recommendations of the NKF-ASK Task Force on Reassessing the Inclusion of Race in Diagnosing Kidney Disease, JASN 2020). The CKD-EPI equation should not be used for patients with unstable renal function and has not been validated in children and those over 70. Current interpretive data was last reviewed 2021. Blood 05/12/2024 5:14 AM PAINTER PLATE 05/12/2024 5:35 AM PAINTER PLATE us Missy Shipley MD LAB BLOOD ORDERABLES Final Res ult [facility] [address] Department [place] [address] * (ABNORMAL) Basic metabolic panel (05/12/2024 5:14 AM PAINTER PLATE) Sodium 145 135 - 145 mmol/L Potassium, pl 3.0(L) 3.3 - 4.9 mmol/L [facility] Chloride 111(H) 97 - 110 mmol/L [facility] CO2 21(L) 22 - 32 mmol/L [facility] Anion gap 13 2 - 15 mmol/L [facility] BUN 24 6 - 25 mg/dL [facility] Creatinine 1.22(H) 0.60 - 1.10 mg/dL [facility] Glucose 98 70 - 199 mg/dL [facility] Comment: Interpretive Data Fasting glucose >/= 126 mg/dl is diagnostic for diabetes. ?? Fasting is defined as no caloric intake for at least 8 hours. Fasting glucose between 100 mg/dl to 125 mg/dl is diagnostic of prediabetes. In a patient with classic symptoms of hyperglycemia or hyperglycemic crisis, a random glucose >/= 200 mg/dl is diagnostic for diabetes. In the absence of unequivocal hyperglycemia, results should be confirmed by repeat testing. The classification and Diagnosis of Diabetes Diabetes Care 2021; 46: S19-S40. Current interpretive data was last revised 2022. Calcium 8.3(L) 8.5 - 10.3 mg/dL [facility] Blood 05/12/2024 5:14 AM PAINTER PLATE 05/12/2024 5:35 AM PAINTER PLATE us Missy Shipley MD LAB BLOOD ORDERABLES Final Res ult [facility] [address] Department [place] [address] * Colonoscopy (05/11/2024 8:42 AM PAINTER PLATE) Anatomical Region Laterality Modality Other Narrative Procedure Note Jose Le MD - 05/11/2024 8:42 AM CST ENDOSCOPY LAB Patient Name: Ana Luisa Yung Procedure Date: 05/11/2024 8:42 AM Admit Type: Inpatient Room: [facility] Date of : 1935 Instrument Name: [id number] Gender: Female Note Status: Finalized Procedure: Colonoscopy Indications: Anemia Providers: Jose Le M.D. Referring MD: Yosvany Collins M.D. Medicines: Propofol per Anesthesia Complications: No immediate complications. Estimated Blood Loss: Estimated blood loss: none. Procedure: Pre-Anesthesia Assessment: - After reviewing the risks and benefits, thepatient was deemed in satisfactory condition to undergo the procedure. - The risks and benefits of the procedure and the sedation options and risks were discussed with the patient. All questions were answered and informed consent was obtained. The benefits, risks and alternatives of theprocedure and sedation were discussed and informed consentwas obtained. All questions were answered. Please referto the signed informed consent document in the medical record. The scope was passed under direct vision.The Colonoscope was introduced through the anus and advanced to the the terminal ileum. The colonoscopy was performed without difficulty. The patient tolerated the procedure well. The quality of thebowel preparation was good. The bowel preparation usedwas Plenvu via split dose instruction. Findings: The perianal and digital rectal examinations were normal. The terminal ileum appeared normal. A few small-mouthed diverticula were found in the sigmoid colon. Non-bleeding internal hemorrhoids were found during retroflexion. The hemorrhoids were small. The exam was otherwise without abnormality. Impression: - The examined portion of the ileum was normal. - Diverticulosis in the sigmoid colon. - Non-bleeding internal hemorrhoids. - The examination was otherwise normal. - No specimens collected. Recommendation: - Return patient to hospital virk for ongoingcare. - Clear liquid diet. - SBS today to evalute small bowel. If negative for mass, can go home on oral iron and follow up withPCP - Repeat colonoscopy is not recommended forscreening purposes. Dr. Jose Le Jose Le M.D. 05/11/2024 9:30:03 AM This document was signed electronically. Number of Addenda: 0 Note Initiated On: 05/11/2024 8:42 AM Scope In: Scope Out: Jose Le MD ENDOSCOPY PROCEDURE S Final Result * (ABNORMAL) CBC without differential (05/11/2024 6:42 AM PAINTER PLATE) WBC 13.9(H) 3.8 - 9.9 K/cumm Hgb 8.3(L) 11.9 - 15.5 g/dL [facility] Hct 25.6(L) 35.6 - 45.5 % [facility] Plt 198 150 - 400 K/cumm [facility] MPV 13.8(H) 9.1 - 12.3 fL [facility] RBC 2.61(L) 3.90 - 5.20 M/cumm [facility] MCV 98.1(H) 81.3 - 96.4 fL [facility] MCH 31.8 27.1 - 33.3 pg [facility] MCHC 32.4 32.3 - 35.7 g/dL [facility] RDW CV 14.1 11.1 - 14.9 % [facility] RDW SD 49.3(H) 35.7 - 48.1 fL [facility] NRBC abs 0.00 0.00 - 0.01 K/cumm [facility] Blood 05/11/2024 6:42 AM PAINTER PLATE 05/11/2024 6:54 AM PAINTER PLATE Jose Le MD LAB BLOOD ORDERABLE S Final Result [facility] [address] Department [place] [address] * XR Chest PA Lateral 2 Views (05/10/2024 3:45 PM PAINTER PLATE) Anatomical Region Laterality Modality Body, Chest N/A Computed Radiogr aphy 05/10/2024 3:55 PM PAINTER PLATE Impressions 05/10/2024 3:55 PM PAINTER PLATE FINDINGS/IMPRESSION: Left axillary surgical clips are seen. Minimal left retrocardiac atelectatic changes are noted. ??No visualized focal consolidation, pleural effusion or pneumothorax. The cardiomediastinal silhouette is grossly unremarkable. Electronically signed by: Catherine Ortiz M.D. Narrative 05/10/2024 3:55 PM PAINTER PLATE EXAMINATION: XR CHEST PA LATERAL 2 VIEWS HISTORY: cough COMPARISON: No prior. Procedure Note Catherine Lopez MD - 05/10/2024 EXAMINATION: XR CHEST PA LATERAL 2 VIEWS HISTORY: cough COMPARISON: No prior. IMPRESSION: FINDINGS/IMPRESSION: Left axillary surgical clips are seen. Minimal left retrocardiac atelectatic changes are noted. No visualized focal consolidation, pleural effusion or pneumothorax. The cardiomediastinal silhouette is grossly unremarkable. Electronically signed by: Catherine Ortiz M.D. Jose Le MD IMG XR PROCEDURES F inal Result * EGD (05/10/2024 1:54 PM PAINTER PLATE) Anatomical Region Laterality Modality Other Narrative Procedure Note Jose Le MD - 05/10/2024 1:54 PM CST ENDOSCOPY LAB Patient Name: Ana Luisa Yung Procedure Date: 05/10/2024 1:54 PM Admit Type: Inpatient Room: [facility] Date of : 1935 Instrument Name: [id number] Gender: Female Note Status: Finalized Procedure: Upper GI endoscopy Indications: Melena Providers: Jose Le M.D. Referring MD: Yosvany Collins M.D. Medicines: Propofol per Anesthesia Complications: No immediate complications. Estimated Blood Loss: Estimated blood loss: none. Procedure: Pre-Anesthesia Assessment: - After reviewing the risks and benefits, thepatient was deemed in satisfactory condition to undergo the procedure. The benefits, risks, and alternatives to theprocedure and sedation were discussed and informed consentwas obtained. The scope was passed under direct vision. The Endoscope was introduced through the mouth, and advanced to the second part of duodenum. The upperGI endoscopy was accomplished without difficulty. The patient tolerated the procedure well. Findings: The examined esophagus was normal. Patchy mild inflammation characterized by erythema was found in the gastric antrum. The exam of the stomach was otherwise normal. The examined duodenum was normal. Impression: - Normal esophagus. - Gastritis. - Normal examined duodenum. - No specimens collected. Recommendation: - Return patient to hospital virk for ongoingcare. - Clear liquid diet. - Perform a colonoscopy tomorrow. Dr. Jose Le Jose Le M.D. 05/10/2024 2:20:17 PM This document was signed electronically. Number of Addenda: 0 Note Initiated On: 05/10/2024 1:54 PM Scope In: Scope Out: us Jose Le MD ENDOSCOPY PROCEDURE S Final Result * (ABNORMAL) eGFR (05/10/2024 6:37 AM PAINTER PLATE) eGFR 44(L) >=60 mL/min/1. 73 m2 Comment: Interpretive Data Reference Interval Normal ?>/= 90 mL/min/1.73m2 Mildly decreased* ? 60 - 89 mL/min/1.73m2 Mildly to moderately decreased ?45 - 59 mL/min/1.73m2 Moderately to severely decreased ??30 - 44 mL/min/1.73m2 Severely decreased ?15 - 29 mL/min/1.73m2 Kidney Failure ?< 15 ??mL/min/1.73m2 *Relative to young adult level Estimated glomerular filtration rate is determined by the 2020 CKD-EPI equation recommended by the National Kidney Foundation (A Unifying Approach to GFR Estimation: Recommendations of the NKF-ASK Task Force on Reassessing the Inclusion of Race in Diagnosing Kidney Disease, JASN 2020). The CKD-EPI equation should not be used for patients with unstable renal function and has not been validated in children and those over 70. Current interpretive data was last reviewed 2021. Blood 05/10/2024 6:37 AM PAINTER PLATE 05/10/2024 7:33 AM PAINTER PLATE Cash Tejeda DO LAB BLOOD ORDERABLES F inal Result [facility] [address] Department [place] [address] * (ABNORMAL) Differential, auto (05/10/2024 6:37 AM PAINTER PLATE) [facility] Neutrophil abs 8.9(H) 1.5 - 6.5 K/cumm Imm gran abs 0.1 0.0 - 0.1 K/cumm [facility] Lymphocyte abs 3.5(H) 0.8 - 3.3 K/cumm [facility] Monocyte abs 0.9(H) 0.2 - 0.8 K/cumm [facility] Eosinophil abs 0.2 0.0 - 0.5 K/cumm [facility] Basophil abs 0.1 0.0 - 0.1 K/cumm [facility] Neutrophil pct 65.3 % [facility] Comment: Interpretive Data Percent cell count reference ranges are not reported, since discordance with absolute values may lead to misinterpretation of CBC data. Current Interpretive Data was last revised on 2017. Imm gran pct 0.5 % [facility] Comment: Interpretive Data Percent cell count reference ranges are not reported, since discordance with absolute values may lead to misinterpretation of CBC data. Current Interpretive Data was last revised on 2017. Lymphocyte pct 25.7 % [facility] Comment: Interpretive Data Percent cell count reference ranges are not reported, since discordance with absolute values may lead to misinterpretation of CBC data. Current Interpretive Data was last revised on 2017. Monocyte pct 6.6 % [facility] Comment: Interpretive Data Percent cell count reference ranges are not reported, since discordance with absolute values may lead to misinterpretation of CBC data. Current Interpretive Data was last revised on 2017. Eosinophil pct 1.5 % [facility] Comment: Interpretive Data Percent cell count reference ranges are not reported, since discordance with absolute values may lead to misinterpretation of CBC data. Current Interpretive Data was last revised on 2017. Basophil pct 0.4 % [facility] Comment: Interpretive Data Percent cell count reference ranges are not reported, since discordance with absolute values may lead to misinterpretation of CBC data. Current Interpretive Data was last revised on 2017. Blood 05/10/2024 6:37 AM PAINTER PLATE 05/10/2024 7:33 AM PAINTER PLATE Cash Tejeda DO LAB BLOOD ORDERABLES F inal Result [facility] [address] Department [place] [address] * (ABNORMAL) CBC with auto differential (05/10/2024 6:37 AM PAINTER PLATE) WBC 13.6(H) 3.8 - 9.9 K/cumm Hgb 8.1(L) 11.9 - 15.5 g/dL [facility] Hct 25.1(L) 35.6 - 45.5 % [facility] Plt 174 150 - 400 K/cumm [facility] MPV 14.5(H) 9.1 - 12.3 fL [facility] RBC 2.56(L) 3.90 - 5.20 M/cumm [facility] MCV 98.0(H) 81.3 - 96.4 fL [facility] MCH 31.6 27.1 - 33.3 pg [facility] MCHC 32.3 32.3 - 35.7 g/dL [facility] RDW CV 13.9 11.1 - 14.9 % [facility] RDW SD 49.4(H) 35.7 - 48.1 fL [facility] NRBC abs 0.00 0.00 - 0.01 K/cumm [facility] Blood 05/10/2024 6:37 AM PAINTER PLATE 05/10/2024 7:33 AM PAINTER PLATE Cash Tejeda DO LAB BLOOD ORDERABLES F inal Result [facility] [address] Department of Laboratories [place], [place] [id number] * Protime-INR (05/10/2024 6:37 AM PAINTER PLATE) Pathologist [facility] [place] PT 12.7 9.7 - 13.0 sec INR 1.17 0.90 - 1.20 [facility] Comment: Interpretive data Oral anticoagulant therapeutic ranges: Venous thromboembolism prophylaxis or treatment: 2.0-3.0 CARDIOLOGY Standard range: 2.0-3.0 High-intensity range: 2.5-3.5 Refer to indication-specific guidelines for appropriate target ranges for prosthetic heart valve replacement. Current interpretive data was last revised on 2019. Blood 05/10/2024 6:37 AM PAINTER PLATE 05/10/2024 7:34 AM PAINTER PLATE us Cash Tejeda DO LAB BLOOD ORDERABLES F inal Result [facility] [address] Department [place] [address] * (ABNORMAL) Comprehensive metabolic panel (05/10/2024 6:37 AM PAINTER PLATE) Sodium 141 135 - 145 mmol/L Potassium, pl 3.3 3.3 - 4.9 mmol/L [facility] Chloride 108 97 - 110 mmol/L [facility] CO2 21(L) 22 - 32 mmol/L [facility] Anion gap 12 2 - 15 mmol/L [facility] BUN 43(H) 6 - 25 mg/dL [facility] Creatinine 1.20(H) 0.60 - 1.10 mg/dL [facility] Glucose 104 70 - 199 mg/dL [facility] Comment: Interpretive Data Fasting glucose >/= 126 mg/dl is diagnostic for diabetes. ?? Fasting is defined as no caloric intake for at least 8 hours. Fasting glucose between 100 mg/dl to 125 mg/dl is diagnostic of prediabetes. In a patient with classic symptoms of hyperglycemia or hyperglycemic crisis, a random glucose >/= 200 mg/dl is diagnostic for diabetes. In the absence of unequivocal hyperglycemia, results should be confirmed by repeat testing. The classification and Diagnosis of Diabetes Diabetes Care 2021; 46: S19-S40. Current interpretive data was last revised 2022. Calcium 8.3(L) 8.5 - 10.3 mg/dL [facility] Bilirubin, total 0.3 0.1 - 1.2 mg/dL [facility] Protein, pl 5.4(L) 6.5 - 8.5 g/dL [facility] Albumin 3.7 3.5 - 5.0 g/dL [facility] Alk phos 73 40 - 130 Units/L [facility] ALT 20 7 - 45 Units/L [facility] AST 25 10 - 45 Units/L [facility] Blood 05/10/2024 6:37 AM PAINTER PLATE 05/10/2024 7:33 AM PAINTER PLATE us Cash Tejeda DO LAB BLOOD ORDERABLES F inal Result [facility] [address] Department [place] [address] from Last 3 Months Insurance MEDICARE [facility] MEDICARE Advance Directives For more information, please contact: [phone] Documents on File Type Date Recorded Patient Armor Reconnaissance Vehicle Driver Expl anation ADVANCE DIRECTIVE 05/14/2024 2:11 PM POLST ADVANCE DIRECTIVE 05/14/2024 1:44 PM LIVING WILL ADVANCE DIRECTIVE 05/14/2024 1:44 PM POWER OF CLINICAL DATA ASSOCIATE-MEDICAL * Full Code (Latest Code Status on File) Date Activated Date Inactivated Comments 05/10/2024 4:45 AM 05/12/2024 9:57 PM Care Teams Concert Pianist Relationship Specialty Start Date End Date Yosvany Collins MD PCP - General Internal Medicine 05/13/22
--- OUTSIDE RECORDS SUMMARY | 2024-05-16 16:31 | XMS_ITS | Encounter Summary ---
Author Organization [facility] Address [address] [place] [address] Phone Care Team Providers Care Piano Technician Name Role Phone Yosvany Collins MD Primary Care Provider [phone] Encounter Details Date Type Department Care Team (Latest Contact Info) Description 06/16/2022 2:30 PM STONE SETTER APPRENTICE Procedure visit [facility] Otolaryngology [address] [place] [id number] Pat Price Au.D. [address] [place] [id number] Sensorineural hearing loss (SNHL), bilateral (Primary Dx) Social History Tobacco Use Types Packs/Day Years Used Date Smoking Tobacco: Never Smokeless Tobacco: Never Comments Unknown Sex and Gender Information Value Date Recorded Sex Assigned at Not on file Legal Sex Female 3:47 PM STONE SETTER APPRENTICE Gender Identity Not on file Sexual Orientation Not on file documented as of this encounter Procedure Notes * Pat Price Au.D. - 06/16/2022 2:30 PM CST Procedures Audiologic Evaluation Referring physician: Patient referred by ALEYDA Manzanares History: Patient reported a history of decreased hearing. Otoscopy: Ear canals clear of cerumen bilaterally. Tympanometry: Right:Type A tymp and is consistent with normal middle ear function. Left: Type A tymp and is consistent with normal middle ear function. Audiometry: Pure tone testing revealed mild sloping to severe SNHL, bilaterally. Word Recognition Score (WRS) in the right ear is 68%, WRS in the left ear is 72%. Counseling: Patient was counseled on audiogram results. Recommendations: -Patient will follow-up with ALEYDA Manzanares for test results and recommendations. E SETTER APPRENTICE documented in this encounter Plan of Treatment Not on file documented as of this encounter Visit Diagnoses Diagnosis Sensorineural hearing loss (SNHL), bilateral- Primary documented in this encounter Care Teams Piano Technician Relationship Specialty Start Date End Date Yosvany Collins MD PCP - General Internal Medicine 05/13/22 documented as of this encounter
--- OUTSIDE RECORDS SUMMARY | 2024-05-16 16:31 | XMS_ITS | Encounter Summary ---
Author Organization [facility] Address [address] [place] [address] Phone Care Team Providers Care Sales Solutions Associate Name Role Phone Yosvany Collins MD Primary Care Provider [phone] Reason for Visit * Reason Comments Cerumen Impaction Hearing Loss Encounter Details Date Type Department Care Team (Late st Contact Info) Description 06/16/2022 2:00 PM HISTOTECHNOLOGIST Office Visit [facility] Otolaryngology [address] [place] [address] Lucia Shahid SCROLL MACHINE OPERATOR [address] [place] [phone] Bilateral impacted cerumen (Primary Dx); Sensorineural hearing loss (SNHL) of both ears Social History Tobacco Use Types Packs/Day Years Used Date Smoking Tobacco: Never Smokeless Tobacco: Never Tobacco Cessation:Counseling Given: Not Answered Comments Unknown Sex and Gender Information Value Date Recorded Sex Assigned at Not on file Legal Sex Female 3:47 PM HISTOTECHNOLOGIST Gender Identity Not on file Sexual Orientation Not on file documented as of this encounter Last Filed Vital Signs Vital Sign Reading Time Taken Comments Blood Pressure - - Pulse - - Temperature - - Respiratory Rate 18 06/16/2022 2:14 PM HISTOTECHNOLOGIST Oxygen Saturation - - Inhaled Oxygen Concentration - - Weight 97.5 kg (215 lb) 06/16/2022 2:14 PM HISTOTECHNOLOGIST Height 162.6 cm (5' 4 ) 06/16/2022 2:14 PM HISTOTECHNOLOGIST Body Mass Index 36.9 06/16/2022 2:14 PM HISTOTECHNOLOGIST documented in this encounter Progress Notes * Lucia Shahid, SCROLL MACHINE OPERATOR - 06/16/2022 2:00 PM CST Ana Luisa Yung was seen in the office today. Primary care provider is Yosvany Collins MD . Chief Complaint: Ana Luisa Yung is a 86 y.o. female with complaints of: Chief Complaint Patient presents with Cerumen Impaction Hearing Loss . HPI: She comes to clinic today for evaluation of hearing loss and cerumen impaction. She reports going to see an lcac radar operator/navigator for a hearing test about nine months ago who told her that there was cerumen impaction to both ears. She does report using drops a few days after but did not have much reliefand then stopped using them. She does report intermittent ear discomfort. She does report some mildhearing loss. She denies any otorrhea or tinnitus. She does report some intermittent issues with her balance. She denies ever using tobacco products. She denies any recent fever, she does have macular degeneration, she denies any dysphagia, chest pain, shortness of breath, nausea, rash, she does report rheumatoid arthritis, she denies any headaches, insomnia, or cold intolerance, hematuria, or easily bruising. Subjective: See HPI Past Medical/Surgical History Past Medical History: Diagnosis Date Breast cancer ([facility] ([facility]) History of kidney problems Hypertension Hypothyroidism Past Surgical History: Procedure Laterality Date HYSTERECTOMY 1975 REPLACEMENT TOTAL KNEE Bilateral 2012 TONSILLECTOMY Bilateral 1960 Past Family/Social History Family History Problem Relation Age of Onset Breast cancer Sister Bladder Cancer Brother Brain cancer Brother Social History Tobacco Use Smoking status: Never Smokeless tobacco: Never Substance and Sexual Activity Drug use: Never Sexual activity: None Alcohol Use: Not on file Medications/Allergies/Immunizations Current Outpatient Medications Medication Sig Dispense Refill anastrozole (ARIMIDEX) 1 mg tablet Take 1 mg by mouth daily dilTIAZem CD 180 mg 24 hr capsule Take 180 mg by mouth daily levothyroxine (SYNTHROID) 50 mcg tablet Take 25 mcg by mouth daily lisinopril-hydroCHLOROthiazide (ZESTORETIC) 20-12.5 mg per tablet Take 1 tablet by mouth daily No current facility-administered medications for this visit. Allergies: Penicillin, Immunizations: There is no immunization history on file for this patient. Review of Systems See HPI Vital Signs: Vitals Resp 18 Ht 162.6 cm (5' 4 ) Wt 97.5 kg (215 lb) BMI 36.90 kg/m?? PHYSICAL EXAMINATION: Physical Exam Constitutional: General: She is not in acute distress. HENT: Head: Normocephalic and atraumatic. Jaw: No tenderness or pain on movement. Salivary Glands: Right salivary gland is not diffusely enlarged or tender. Left salivary gland is not diffusely enlarged or tender. Right Ear: Tympanic membrane, ear canal and external ear normal. There is impacted cerumen. Left Ear: Tympanic membrane, ear canal and external ear normal. There is impacted cerumen. Nose: Septal deviation and rhinorrhea present. No signs of injury, mucosal edema or congestion. Rhinorrhea is clear. Left Turbinates: Enlarged. Right Sinus: No maxillary sinus tenderness or frontal sinus tenderness. Left Sinus: No maxillary sinus tenderness or frontal sinus tenderness. Mouth/Throat: Lips: [place]. No lesions. Mouth: Mucous membranes are moist. No oral lesions. Tongue: No lesions. Tongue does not deviate from midline. Pharynx: Uvula midline. No pharyngeal swelling or posterior oropharyngeal erythema. Comments: Tonsils are surgically absent Eyes: Extraocular Movements: Extraocular movements intact. Conjunctiva/sclera: Conjunctivae normal. Pulmonary: Effort: Pulmonary effort is normal. No respiratory distress. Musculoskeletal: General: Normal range of motion. Cervical back: Normal range of motion and neck supple. No muscular tenderness. Lymphadenopathy: Cervical: No cervical adenopathy. Skin: General: Skin is warm and dry. Neurological: Mental Status: She is alert and oriented to person, place, and time. Cranial Nerves: No cranial nerve deficit. Motor: No weakness. Psychiatric: Mood and Affect: Mood normal. Behavior: Behavior normal. Cerumen removal counseling: A cerumen impaction is defined as a wax build up in the ear canal. A small mount of wax in the ear canal is normal and protective. In some cases, the build up may cause obstruction of the canal, which may lead to hearing loss, trapped water in the canal, ringing of the ear, or infection. The wax may be removed with various solutions such as eardrops, or may be physically removed by a medical provider. Cerumen debridement is usually performed in the office with out anesthesia. The ear canal is examined with an otoscope or a microscope and the wax is removed with a combination of instruments until clear. Risks of the procedure include ear pain, bleeding, infection, recurrent wax impaction, hearing loss, or tympanic membrane perforation, among others. After counseling we decided on cerumen debridement. Procedure: Patient was positioned supine and an otoscope was used to examine the auditory canals. Cerumen was noted to the bilateral EAC. Cerumen was removed using wire loop and Nathen forceps. Tympanic membranes are intact following the procedure. Auditory canals are without edema or erythema. Patient tolerated the procedure without difficulty. ASSESSMENT & PLAN Problem List Items Addressed This Visit ENT Bilateral impacted cerumen - Primary Sensorineural hearing loss (SNHL) of both ears Ana Luisa is an 86-year-old female who presents to the office today with hearing loss. She did have cerumen impaction noted on exam and this was removed using loupe magnification. After cerumen was removed she did have a complete audiogram which reveals normal middle ear function and a mild bilateral sensorineural hearing loss sloping to a moderate to moderately severe hearing loss in the higher frequencies. A hearing aid evaluation was recommended. I did recommend she follow up more often for an ear cleaning. We discussed not using Q-tips down in the canal of her ear. She verbalizes understanding of instructions and agrees with this treatment plan. She was instructed to call the office with any questions, concerns, or problems. Lucia Shahid NP This note was created in part with the assistance of [employer] voice recognition software. Fish Checker variances may occur. OTECHNOLOGIST documented in this encounter Plan of Treatment Not on file documented as of this encounter Visit Diagnoses Diagnosis Bilateral impacted cerumen- Primary Impacted cerumen Sensorineural hearing loss (SNHL) of both ears documented in this encounter Historical Medications * This list may reflect changes made after this encounter. levothyroxine (SYNTHROID) 50 mcg tablet Take 0.5 tablets (25 mcg total) by mouth daily 06/07/2022 anastrozole (ARIMIDEX) 1 mg tablet Take 1 mg by mouth daily 05/10/2024 lisinopril-hydroC HLOROthiazide (ZESTORETIC) 20-12.5 mg per tablet Take 1 tablet by mouth daily 06/07/2022 05/10/2024 dilTIAZem CD 180 mg 24 hr capsule Take 1 capsule (180 mg total) by mouth daily 05/19/2022 05/10/2024 added in this encounter Care Teams Sales Solutions Associate Relationship Specialty Start Date End Date Yosvany Collins MD PCP - General Internal Medicine 05/13/22 documented as of this encounter
--- OUTSIDE RECORDS SUMMARY | 2024-05-16 16:31 | XMS_ITS | Referral Summary ---
Author Organization [facility] [address] Address [address] [place] [address] Care Team Providers Care Camouflage Specialist Name Role Phone Yosvany Collins MD Primary Care Provider [phone] Encounters Date Type Department Care Team Description 05/10/2024 4:45 AM RADIO OPERATOR - 05/12/2024 5:30 PM RADIO OPERATOR Hospital Encounter [address] [address] Cash Tejeda DO Sripada, Sarada, MD Gastrointestinal hemorrhage, unspecified gastrointestinal hemorrhage type [K92.2] (Primary Dx); Gastrointestinal hemorrhage, unspecified gastrointestinal hemorrhage type Discharge Disposition: Discharge to home or self care 05/11/2024 9:03 AM RADIO OPERATOR Anesthesia Event [facility] [address] [place] [phone] Rene Lofton MD 05/11/2024 9:00 AM RADIO OPERATOR - 05/11/2024 9:30 AM RADIO OPERATOR Surgery [facility] [address] [place] [phone] Jose Le MD COLONOSCOPY 05/10/2024 2:05 PM RADIO OPERATOR Anesthesia Event [facility] [address] [place] [phone] Brett Mcgraw MD 05/10/2024 2:30 PM RADIO OPERATOR - 05/10/2024 3:00 PM RADIO OPERATOR Surgery [facility] [address] [place] [address] Jose Le MD EGD 05/09/2024 Orders Only [facility] [address] [place] [address] Cash Tejeda, DO from Last 3 Months Allergies Active Allergy Reactions Criticality Noted Date [...] loss (SNHL) of both ears 0 06/16/2022 Social History Tobacco Use Types Packs/Day Years Used Date Smoking Tobacco: Never Smokeless Tobacco: Never Tobacco Cessation:Counseling Given: Not Answered [facility] Utilities Answer Date Recorded In the past 12 months has th e electric, gas, oil, or water company threatened to shut off services in your [...] often do you attend chur ch or jew services? Never 05/10/2024 Do you belong to any clubs o r organizations such as bahai groups, unions, fraternal or athletic groups, or [...] any time in the past 12 m [facility], were you homeless or living in a prison (including now)? No 05/10/2024 Personal Safety Answer Date Recorded Have you ever been in or are you currently in a harmful physical or emotional relationship or is someone making you feel afraid or unsafe? Denies 05/10/2024 Comments No Sex and Gender Information Value Date Recorded Sex Assigned at Not on file Legal Sex Female 3:47 PM RADIO OPERATOR Gender Identity Not on file Sexual Orientation Not on file Last Filed Vital Signs Vital Sign Reading Time Taken Comments Blood Pressure 149/68 05/12/2024 12:56 PM RADIO OPERATOR Pulse 95 05/12/2024 12:56 PM RADIO OPERATOR Temperature 36.5 ??C (97.7 ??F) 05/12/2024 12:[address] Respiratory Rate 18 05/11/2024 10:11 AM RADIO OPERATOR Oxygen Saturation 100% 05/12/2024 12:56 PM RADIO OPERATOR Inhaled Oxygen Concentration - - Weight 91.2 kg (201 lb) 05/11/2024 8:32 AM RADIO OPERATOR Height 165.1 cm (5' 5 ) 05/11/2024 8:32 AM RADIO OPERATOR Body Mass Index 33.45 05/11/2024 8:32 AM RADIO OPERATOR Plan of Treatment Not on file Procedures Procedure Name Priority Date/Time Associated Diagnosis Comments FL SMALL BOWEL SERIES IP Routine 05/12/2024 9:17 AM RADIO OPERATOR EGFR Routine 05/12/2024 5:14 AM RADIO OPERATOR BASIC METABOLIC PANEL Routine 05/12/2024 5:14 AM RADIO OPERATOR COLONOSCOPY 05/11/2024 9:03 AM RADIO OPERATOR Gastrointestinal hemorrhage, unspecified gastrointestinal hemorrhage type COLONOSCOPY 05/11/2024 8:42 AM RADIO OPERATOR CBC WITHOUT DIFFERENTIAL STAT 025 6:42 AM RADIO OPERATOR XR CHEST PA LATERAL 2 VIEWS IP Routine 06/2024 3:45 PM RADIO OPERATOR ESOPHAGOGASTRODUODENOSCOPY 05/10 2:05 PM RADIO OPERATOR Gastrointestinal hemorrhage, unspecified gastrointestinal hemorrhage type EGD 05/10/2024 1:54 PM RADIO OPERATOR EGFR Routine 05/10/2024 6:37 AM RADIO OPERATOR DIFFERENTIAL AUTO Routine 05/10/2024 6:37 AM RADIO OPERATOR PROTIME-INR Routine 05/10/2024 6:37 AM RADIO OPERATOR COMPREHENSIVE METABOLIC PANEL Routine 6:37 AM RADIO OPERATOR CBC WITH AUTO DIFFERENTIAL Routine 05/10 6:37 AM RADIO OPERATOR from Last 3 Months Results * FL Small Bowel Series (05/12/2024 9:17 AM RADIO OPERATOR) Anatomical Region Laterality Modality Body N/A Radio Fluoroscop y 05/12/2024 3:01 PM RADIO OPERATOR Impressions 05/12/2024 3:01 PM RADIO OPERATOR No evidence of small bowel mass identified. Electronically signed by: Rene Barone M.D. Narrative 05/12/2024 3:01 PM RADIO OPERATOR EXAM: ??Small bowel series. HISTORY: Concern for small bowel mass COMPARISON: ??CT 05/04/2024 FINDINGS: ?? The patient was given water soluble contrast to drink and serial overhead films were obtained. ??Normal bowel gas pattern noted on the tongsman radiograph. ??Surgical clips noted in the right [...] Normal bowel gas pattern noted on the tongsman radiograph. Surgical clips noted in the right upper quadrant and pelvis. Contrast reaches the colon by 20 minutes. No evidence of small bowel mass. IMPRESSION: No evidence of small bowel mass identified. Electronically signed by: Rene Barone M.D. Missy Shipley MD IMG FLUOROSCOPY PROCEDURES Fin al Result * (ABNORMAL) eGFR (05/12/2024 5:14 AM RADIO OPERATOR) eGFR 43(L) >=60 mL/min/1. 73 m2 Comment: [...] last reviewed 2021. Blood 05/12/2024 5:14 AM RADIO OPERATOR 05/12/2024 5:35 AM RADIO OPERATOR Missy Shipley MD LAB BLOOD ORDERABLES Final Res ult [facility] [address] [place] [address] * (ABNORMAL) Basic metabolic panel (05/12/2024 5:14 AM RADIO OPERATOR) Sodium 145 135 - 145 mmol/L Potassium, pl 3.0(L) 3.3 - 4.9 mmol/L [facility] Chloride 111(H) 97 - 110 mmol/L [facility] CO2 21(L) 22 - 32 mmol/L [facility] Anion gap 13 2 - 15 mmol/L [facility] BUN 24 6 - 25 mg/dL [facility] Creatinine 1.22(H) 0.60 - 1.10 mg/dL [facility] Glucose 98 70 - 199 mg/dL [facility] Comment: Interpretive Data Fasting glucose >/= [...] 2022. Calcium 8.3(L) 8.5 - 10.3 mg/dL [facility] Blood 05/12/2024 5:14 AM RADIO OPERATOR 05/12/2024 5:35 AM RADIO OPERATOR us Missy Shipley MD LAB BLOOD ORDERABLES Final Res ult [facility] [address] Department [place] [address] * Colonoscopy (05/11/2024 8:42 AM RADIO OPERATOR) Anatomical Region Laterality Modality Other Narrative Procedure Note Jose Le MD - 05/11/2024 8:42 AM CST ENDOSCOPY LAB Patient Name: Ana Luisa Yung Procedure Date: 05/11/2024 8:42 AM Admit Type: Inpatient Room: [facility] Date of : 1935 Instrument Name: [id number] [...] (ABNORMAL) CBC without differential (05/11/2024 6:42 AM RADIO OPERATOR) WBC 13.9(H) 3.8 - 9.9 K/cumm Hgb 8.3(L) 11.9 - 15.5 g/dL [facility] Hct 25.6(L) 35.6 - 45.5 % [facility] Plt 198 150 - 400 K/cumm [facility] MPV 13.8(H) 9.1 - 12.3 fL [facility] RBC 2.61(L) 3.90 - 5.20 M/cumm [facility] MCV 98.1(H) 81.3 - 96.4 fL [facility] MCH 31.8 27.1 - 33.3 pg [facility] MCHC 32.4 32.3 - 35.7 g/dL [facility] RDW CV 14.1 11.1 - 14.9 % [facility] RDW SD 49.3(H) 35.7 - 48.1 fL [facility] NRBC abs 0.00 0.00 - 0.01 K/cumm [facility] Blood 05/11/2024 6:42 AM RADIO OPERATOR 05/11/2024 6:54 AM RADIO OPERATOR Jose Le MD LAB BLOOD ORDERABLE S Final Result [facility] [address] Department [place] [address] * XR Chest PA Lateral 2 Views (05/10/2024 3:45 PM RADIO OPERATOR) Anatomical Region Laterality Modality Body, Chest N/A Computed Radiogr aphy 05/10/2024 3:55 PM RADIO OPERATOR Impressions 05/10/2024 3:55 PM RADIO OPERATOR FINDINGS/IMPRESSION: Left axillary surgical clips are seen. Minimal left retrocardiac atelectatic changes are noted. ??No visualized focal consolidation, pleural effusion or pneumothorax. The cardiomediastinal silhouette is grossly unremarkable. Electronically signed by: Catherine Ortiz M.D. Narrative 05/10/2024 3:55 PM RADIO OPERATOR EXAMINATION: XR CHEST PA LATERAL 2 VIEWS [...] inal Result * EGD (05/10/2024 1:54 PM RADIO OPERATOR) Anatomical Region Laterality Modality Other Narrative Procedure Note Jose Le MD - 05/10/2024 1:54 PM CST ENDOSCOPY LAB Patient Name: Ana Luisa Yung Procedure Date: 05/10/2024 1:54 PM Admit Type: Inpatient Room: [facility] Date of : 1935 Instrument Name: [id number] [...] 05/10/2024 1:54 PM Scope In: Scope Out: Jose Le MD ENDOSCOPY PROCEDURE S Final Result * (ABNORMAL) eGFR (05/10/2024 6:37 AM RADIO OPERATOR) eGFR 44(L) >=60 mL/min/1. 73 m2 Comment: [...] last reviewed 2021. Blood 05/10/2024 6:37 AM RADIO OPERATOR 05/10/2024 7:33 AM RADIO OPERATOR us Cash Tejeda DO LAB BLOOD ORDERABLES F inal Result [facility] [address] Department [place] [address] * (ABNORMAL) Differential, auto (05/10/2024 6:37 AM RADIO OPERATOR) Neutrophil abs 8.9(H) 1.5 - 6.5 K/cumm Imm gran abs 0.1 0.0 - 0.1 K/cumm [facility] Lymphocyte abs 3.5(H) 0.8 - 3.3 K/cumm [facility] Monocyte abs 0.9(H) 0.2 - 0.8 K/cumm [facility] Eosinophil abs 0.2 0.0 - 0.5 K/cumm [facility] Basophil abs 0.1 0.0 - 0.1 K/cumm [facility] Neutrophil pct 65.3 % [facility] Comment: Interpretive Data Percent cell count reference ranges are not reported, since discordance with absolute values may lead to misinterpretation of CBC data. Current Interpretive Data was last revised on 2017. Imm gran pct 0.5 % [facility] Comment: Interpretive Data Percent cell count reference ranges are not reported, since discordance with absolute values may lead to misinterpretation of CBC data. Current Interpretive Data was last revised on 2017. Lymphocyte pct 25.7 % [facility] Comment: Interpretive Data Percent cell count reference ranges are not reported, since discordance with absolute values may lead to misinterpretation of CBC data. Current Interpretive Data was last revised on 2017. Monocyte pct 6.6 % [facility] Comment: Interpretive Data Percent cell count reference ranges are not reported, since discordance with absolute values may lead to misinterpretation of CBC data. Current Interpretive Data was last revised on 2017. Eosinophil pct 1.5 % [facility] Comment: Interpretive Data Percent cell count reference ranges are not reported, since discordance with absolute values may lead to misinterpretation of CBC data. Current Interpretive Data was last revised on 2017. Basophil pct 0.4 % [facility] Comment: Interpretive Data Percent cell count reference ranges are not reported, since discordance with absolute values may lead to misinterpretation of CBC data. Current Interpretive Data was last revised on 2017. Blood 05/10/2024 6:37 AM RADIO OPERATOR 05/10/2024 7:33 AM RADIO OPERATOR Cash Tejeda DO LAB BLOOD ORDERABLES F inal Result [facility] [address] [place] [address] * (ABNORMAL) CBC with auto differential (05/10/2024 6:37 AM RADIO OPERATOR) WBC 13.6(H) 3.8 - 9.9 K/cumm Hgb 8.1(L) 11.9 - 15.5 g/dL [facility] Hct 25.1(L) 35.6 - 45.5 % [facility] Plt 174 150 - 400 K/cumm [facility] MPV 14.5(H) 9.1 - 12.3 fL [facility] RBC 2.56(L) 3.90 - 5.20 M/cumm [facility] MCV 98.0(H) 81.3 - 96.4 fL [facility] MCH 31.6 27.1 - 33.3 pg [facility] MCHC 32.3 32.3 - 35.7 g/dL [facility] RDW CV 13.9 11.1 - 14.9 % [facility] RDW SD 49.4(H) 35.7 - 48.1 fL [facility] NRBC abs 0.00 0.00 - 0.01 K/cumm [facility] Blood 05/10/2024 6:37 AM RADIO OPERATOR 05/10/2024 7:33 AM RADIO OPERATOR Cash Tejeda DO LAB BLOOD ORDERABLES F inal Result Performing Organization Address [facility] de Phone Number [facility] [address] [place] [address] * Protime-INR (05/10/2024 6:37 AM RADIO OPERATOR) [facility] PT 12.7 9.7 - 13.0 sec INR 1.17 0.90 - 1.20 [facility] Comment: Interpretive data Oral anticoagulant therapeutic ranges: Venous thromboembolism prophylaxis or treatment: 2.0-3.0 CARDIOLOGY Standard range: 2.0-3.0 High-intensity range: 2.5-3.5 Refer to indication-specific guidelines for appropriate target ranges for prosthetic heart valve replacement. Current interpretive data was last revised on 2019. Blood 05/10/2024 6:37 AM RADIO OPERATOR 05/10/2024 7:34 AM RADIO OPERATOR Cash Tejeda DO LAB BLOOD ORDERABLES F inal Result Performing Organization Address [facility] de Phone Number [facility] [address] Department [place] [address] * (ABNORMAL) Comprehensive metabolic panel (05/10/2024 6:37 AM RADIO OPERATOR) [facility] Sodium 141 135 - 145 mmol/L Potassium, pl 3.3 3.3 - 4.9 mmol/L [facility] Chloride 108 97 - 110 mmol/L [facility] CO2 21(L) 22 - 32 mmol/L [facility] Anion gap 12 2 - 15 mmol/L [facility] BUN 43(H) 6 - 25 mg/dL [facility] Creatinine 1.20(H) 0.60 - 1.10 mg/dL [facility] Glucose 104 70 - 199 mg/dL [facility] Comment: Interpretive Data Fasting glucose >/= [...] 2022. Calcium 8.3(L) 8.5 - 10.3 mg/dL [facility] Bilirubin, total 0.3 0.1 - 1.2 mg/dL [facility] Protein, pl 5.4(L) 6.5 - 8.5 g/dL [facility] Albumin 3.7 3.5 - 5.0 g/dL [facility] Alk phos 73 40 - 130 Units/L [facility] ALT 20 7 - 45 Units/L [facility] AST 25 10 - 45 Units/L [facility] Blood 05/10/2024 6:37 AM RADIO OPERATOR 05/10/2024 7:33 AM RADIO OPERATOR Cash Tejeda DO LAB BLOOD ORDERABLES F inal Result [facility] [address] Department of Laboratories [place], [place] [id number] from Last 3 Months Insurance MEDICARE [employer] Advance Directives For more information, please contact: [phone] Documents on File Type Date Recorded Patient Reimbursement Consultant Expl anation ADVANCE DIRECTIVE 05/14/2024 2:11 PM POLST ADVANCE DIRECTIVE 05/14/2024 1:44 PM LIVING WILL ADVANCE DIRECTIVE 05/14/2024 1:44 PM POWER OF PRODUCTION SUPERINTENDENT-MEDICAL * Full Code (Latest Code Status on File) Date Activated Date Inactivated Comments 05/10/2024 4:45 AM 05/12/2024 9:57 PM Care Teams Camouflage Specialist Relationship Specialty Start Date End Date Yosvany Collins MD PCP - General Internal Medicine 05/13/22
--- OUTSIDE RECORDS SUMMARY | 2024-05-16 16:32 | XMS_ITS | Continuity of Care Document ---
Author Organization [facility] Address [address] [place] [address] Phone Care Team Providers Care Meter Attendant Name Role Phone Hanh Thompson MD Unavailable Unavailable Allergies, Adverse Reactions, Alerts Substance Reaction Status Criticality PENICILLIN Active No Information THYROID Active No Information Medications Medication Instructions Dosage Effective Dates (start - stop) Status Comments FOLIC ACID TAB 1MG TAKE 1 TABLET BY MOUTH DAILY - Active methotrexate sodium 2.5 mg tablet take 5 tablet by oral route every week 12.5 MG - Active Tylenol Extra Strength 500 mg tablet take 2 tablet by oral once a day prn only - Active AVASTIN (unknown strength) infuse 1.25mg by intravenous route every 8 weeks Not Available - Active anastrozole 1 mg tablet take 1 tablet by oral route every day 1 MG - Active aspirin 81 mg tablet,delayed release take 1 tablet by oral route every day 81 MG - Active Vitamin D3 2,000 unit capsule take 1 tablet by oral route every day 1 tablet - Active levothyroxine 50 mcg tablet take 1 tablet by oral route every day 50 MCG - Active diltiazem ER (XR/XT) 180 mg capsule,extended release 24 hr, controlled take 1 capsule by oral route every day 180 MG - Active lisinopril 20 mg-hydrochlorothiazi de 12.5 mg tablet take 1 tablet by oral route every day 1.00 tablet - Active Procedures Procedure Date PHONE E/M BY PHYS 21-30 MIN Office/outpatient Visit, Est ROUTINE VENIPUNCTURE COMPLETE CBC W/AUTO DIFF WBC Rbc Sed Rate, Automated C-REACTIVE PROTEIN COMPREHEN METABOLIC PANEL Office/outpatient Visit, Est Office/outpatient Visit, Est Office/outpatient Visit, Est ROUTINE VENIPUNCTURE COMPREHEN METABOLIC PANEL C-REACTIVE PROTEIN COMPLETE CBC W/AUTO DIFF WBC Rbc Sed Rate, Automated Office/outpatient Visit, Est ROUTINE VENIPUNCTURE C-REACTIVE PROTEIN COMPREHEN METABOLIC PANEL COMPLETE CBC W/AUTO DIFF WBC Rbc Sed Rate, Automated ROUTINE VENIPUNCTURE Office/outpatient Visit, Est COMPLETE CBC W/AUTO DIFF WBC Rbc Sed Rate, Automated COMPREHEN METABOLIC PANEL C-REACTIVE PROTEIN Office/outpatient Visit, Est ROUTINE VENIPUNCTURE COMPLETE CBC W/AUTO DIFF WBC Rbc Sed Rate, Automated COMPREHEN METABOLIC PANEL C-REACTIVE PROTEIN ROUTINE VENIPUNCTURE Office/outpatient Visit, Est Rbc Sed Rate, Automated COMPREHEN METABOLIC PANEL C-REACTIVE PROTEIN ROUTINE VENIPUNCTURE Office/outpatient Visit, Est COMPLETE CBC W/AUTO DIFF WBC COMPREHEN METABOLIC PANEL C-REACTIVE PROTEIN Rbc Sed Rate, Automated ROUTINE VENIPUNCTURE ROUTINE VENIPUNCTURE BMI >=30 calcuate w/followup BMI >=30 calcuate w/followup ROUTINE VENIPUNCTURE ROUTINE VENIPUNCTURE BMI >=30 calcuate w/followup ROUTINE VENIPUNCTURE ROUTINE VENIPUNCTURE BMI >=30 calcuate w/followup ROUTINE VENIPUNCTURE DXA Bone Density, Axial with VFA BMI >=30 calcuate w/followup MRI UPPER EXTREMITY W/O DYE ROUTINE VENIPUNCTURE X-RAY EXAM OF HAND X-RAY EXAM OF HAND X-Ray Exam Of Lower Spine X-Ray Exam Of Ribs Chest X-Ray Prolonged Service, Office ROUTINE VENIPUNCTURE Advance Directives Directive Yes / No Effective Date File Name No Information Encounters Encounter Description Practice Location Reason(s) For Visit Diagnoses Date Provider Providers Copied on Encounter [facility], [address], [place], [place], [id number], [place] tel:[phone] MARK Antwon No Information 3 Jay Hanh. [address], [address], [place], [place], [id number], [place]. tel:[phone] [facility], [address], [place], [place], [address], [place] tel:[phone] MARK Muñoz No Information 1 Jay Schafer. [address], [address], [place], [place], [id number], [place]. tel:[phone] [facility], [address], [place], [place], [id number], [place] tel:[phone] [facility] [place] No Information 1 Jay Hanh. [address], [address], [place], [place], [address], [place]. tel:[phone] PHONE E/M BY PHYS 21-30 MIN [facility], [address], [place], [place], [address], [place] tel:[phone] [facility] Rheumatoid Arthritis (chief complaint) Rheumatoid arthritis w/o rheumatoid factor, multiple sitesPolyosteoar thritis, unspecifiedSpond ylosis w/o myelopathy or radiculopathy, lumbar regionBody mass index (BMI) 38.0-38.9, adultOther long-term (current) drug therapy 1 Jay Hanh. [address], [address], [place], [place], [address], [place]. tel:[phone] Office/outpa tient Visit, Est [facility], [address], [place], [place], [address], [place] tel:[phone] [facility] Rheumatoid Arthritis (chief complaint) Rheumatoid arthritis w/o rheumatoid factor, multiple sitesPolyosteoar thritis, unspecifiedSpond ylosis w/o myelopathy or radiculopathy, lumbar regionBody mass index (BMI) 38.0-38.9, adultOther medical and health services manager (current) drug therapy 0 Jay Hanh. [address], [address], [place], [place], [id number], [place]. tel:[phone] Referring Provider: Marzena Moss, [address], [place], [address] . Office/outpa tient Visit, [facility], [address], [place], [place], [address], [place] tel:[phone] [facility] Rheumatoid Arthritis (chief complaint) Rheumatoid arthritis w/o rheumatoid factor, multiple sitesPolyosteoar thritis, unspecifiedSpond ylosis w/o myelopathy or radiculopathy, lumbar regionBody mass index (BMI) 38.0-38.9, adultOther long-term (current) drug therapy 0 Jay Hanh. [address], [address], [place], [place], [address], [place]. tel:[phone] Referring Provider: Marzena Moss, [address], [place], [address] . Office/outpa tient Visit, [facility], [address], [place], [place], [address], [place] tel:[phone] [facility] Rheumatoid Arthritis (chief complaint) Rheumatoid arthritis w/o rheumatoid factor, multiple sitesPolyosteoar thritis, unspecifiedSpond ylosis w/o myelopathy or radiculopathy, lumbar regionBody mass index (BMI) 38.0-38.9, adultOther long-term (current) drug therapy 0 Terry Arce. [address], [address], [place], [address], [place]. tel:[phone] Referring Provider: [address], [place], [address] . Office/outpa tient Visit, Est [facility], [address], [place], [place], [address], [place] tel:[phone] [facility] Rheumatoid Arthritis (chief complaint) Rheumatoid arthritis w/o rheumatoid factor, multiple sitesPolyosteoar thritis, unspecifiedSpond ylosis w/o myelopathy or radiculopathy, lumbar regionBody mass index (BMI) 38.0-38.9, adultOther long-term (current) drug therapy Apr- 9 Jay Hanh. [address], [address], [place], [place], [address], [place]. tel:[phone] Referring Provider: Marzena Moss, [address], [place], [address] . Office/outpa tient Visit, Est [facility], [address], [place], [place], [address], [place] tel:[phone] [facility] Rheumatoid Arthritis (chief complaint) Body mass index (BMI) 38.0-38.9, adultRheumatoid arthritis w/o rheumatoid factor, multiple sitesPolyosteoar thritis, unspecifiedSpond ylosis w/o myelopathy or radiculopathy, lumbar regionOther long-term (current) drug therapy Jan- 9 Jay Hanh. [address], [address], [place], [place], [address], [place]. tel:[phone] Referring Provider: Marzena Moss, [address], [place], [address] . Office/outpa tient Visit, Est [facility], [address], [place], [place], [id number], [place] tel:[phone] [facility] Rheumatoid Arthritis (chief complaint) Rheumatoid arthritis w/o rheumatoid factor, multiple sitesPolyosteoar thritis, unspecifiedSpond ylosis w/o myelopathy or radiculopathy, lumbar regionOther long-term (current) drug therapy 0 9 [facility]. [address], [address], [place], [place], [address], [place]. tel:[phone] Referring Provider: Marzena Moss, [address], [place], [address] . Office/outpa tient Visit, Est [facility], [address], [place], [place], [address], [place] tel:[phone] [facility] Rheumatoid Arthritis (chief complaint) Rheumatoid arthritis w/o rheumatoid factor, multiple sitesOther medical and health services manager (current) drug therapyPolyosteo arthritis, unspecifiedSpond ylosis w/o myelopathy or radiculopathy, lumbar region 9 [facility]. [address], [address], [place], [place], [address], [place]. tel:[phone] Referring Provider: Marzena Moss, [address], [place], [address] . Office/outpa tient Visit, Est [facility], [address], [place], [place], [address], [place] tel:[phone] [facility] Rheumatoid Arthritis (chief complaint) Rheumatoid arthritis w/o rheumatoid factor, multiple sitesPolyosteoar thritis, unspecifiedSpond ylosis w/o myelopathy or radiculopathy, lumbar regionOther medical and health services manager (current) drug therapy 8 Terry Arce. [address], [address], [place], [address], [place]. tel:[phone] Referring Provider: Marzena Moss, [address], [place], [address] . Office/outpa tient Visit, Est [facility], [address], [place], [place], [id number], [place] tel:[phone] MARK [facility] Rheumatoid Arthritis (chief complaint) Rheumatoid arthritis w/o rheumatoid factor, multiple sitesPolyosteoar thritis, unspecifiedSpond ylosis w/o myelopathy or radiculopathy, lumbar regionOther long-term (current) drug therapy 8 Jaymalick Schafer. [address], [address], [place], [place], [address], [place]. tel:[phone] Referring Provider: Marzena Moss, [address], [place], [address] . [facility], [address], [place], [place], [address], [place] tel:[phone] MARK Rodríguezndale Rheumatoid arthritis w/o rheumatoid factor, multiple sites 8 [facility] . . [facility], [address], [place], [place], [id number], [place] tel:[phone] [facility] Rheumatoid arthritis w/o rheumatoid factor, multiple sitesOther long-term (current) drug therapyPolyosteo arthritis, unspecifiedSpond ylosis w/o myelopathy or radiculopathy, lumbar region 8 Jay Swati. [address], [address], [place], [place], [address], [place]. tel:[phone] [facility], [address], [place], [place], [address], [place] tel:[phone] MARK Reyesale Rheumatoid arthritis w/o rheumatoid factor, multiple sites 7 [facility] . . [facility], [address], [place], [place], [address], [place] tel:[phone] [facility] Polyosteoarthrit is, unspecifiedCervi joshua disc disorder, unsp, unspecified cervical regionSpondylosi s w/o myelopathy or radiculopathy, lumbar regionOther long-term (current) drug therapyRheumatoi d arthritis w/o rheumatoid factor, multiple sites [facility]. [address], [address], [place], [place], [address], [place]. tel:[phone] [facility], [address], [place], [place], [address], [place] tel:[phone] [facility] Cervical disc disorder, unsp, unspecified cervical regionSpondylosi s w/o myelopathy or radiculopathy, lumbar regionRheumatoid arthritis w/o rheumatoid factor, multiple sitesPolyosteoar thritis, unspecifiedOther medical and health services manager (current) drug therapy [facility]. [address], [address], [place], [place], [address], [place]. tel:[phone] [facility], [address], [place], [place], [address], [place] tel:[phone] [facility] Polyosteoarthrit is, unspecifiedObesi ty, unspecifiedRheum atoid arthritis w/o rheumatoid factor, multiple sitesSpondylosis w/o myelopathy or radiculopathy, lumbar regionCervical disc disorder, unsp, unspecified cervical region [facility]. [address], [place], [place], [address], [place]. tel:[phone] [facility], [address], [place], [place], [address], [place] tel:[phone] [facility] Rheumatoid arthritis w/o rheumatoid factor, multiple sitesOth disrd of bone density and structure, left forearmOther medical and health services manager (current) drug therapyCervical disc disorder, unsp, unspecified cervical regionSpondylosi s w/o myelopathy or radiculopathy, lumbar regionOth disrd of bone density and structure, multiple sitesPolyosteoar thritis, unspecified Fe [employer]version . . [facility], [address], [place], [place], [address], [place] tel:[phone] [facility] Other primary ovarian failure [facility] . . [facility], [address], [place], [place], [address], [place] tel:[phone] [facility] Rheumatoid arthritis w/o rheumatoid factor, multiple sitesSpondylosis w/o myelopathy or radiculopathy, lumbar regionPolyosteoa rthritis, unspecifiedCervi joshua disc disorder, unsp, unspecified cervical regionOther medical and health services manager (current) drug therapy Jay Schafer. [address], [place], [place], [address], [place]. tel:[phone] [facility], [address], [place], [place], [address], [place] tel:[phone] [facility] Other long-term (current) drug therapyRheumatoi d arthritis w/o rheumatoid factor, multiple sitesLong term (current) use of aromatase inhibitorsPolyos teoarthritis, unspecifiedSpond ylosis w/o myelopathy or radiculopathy, lumbar regionCervical disc disorder, unsp, unspecified cervical region Jaymalick Schafer. [address], [address], [place], [place], [address], [place]. tel:[phone] [facility], [address], [place], [place], [address], [place] tel:[phone] [facility] Rheumatoid arthritis w/o rheumatoid factor, multiple sitesOther long-term (current) drug therapyPolyosteo arthritis, unspecifiedChron ic kidney disease, unspecifiedObesi ty, unspecifiedMalig nant neoplasm of unspecified site of left female breast [facility] Hanh. [address], [address], [place], [place], [address], [place]. tel:[phone] [facility], [address], [place], [place], [address], [place] tel:[phone] [facility] Cervical disc disorder, unsp, unspecified cervical regionObesity, unspecifiedPolyo steoarthritis, unspecifiedSpond ylosis w/o myelopathy or radiculopathy, lumbar regionRheumatoid arthritis w/o rheumatoid factor, multiple sitesOther medical and health services manager (current) drug therapy John-0 3-201 6 Jay Hanh. [address], [place], [place], [address], [place]. tel:[phone] [facility], [address], [place], [place], [address], [place] tel:[phone] [facility] Rheumatoid arthritis w/o rheumatoid factor, multiple sitesSpondylosis w/o myelopathy or radiculopathy, lumbar regionOther medical and health services manager (current) drug therapyPolyosteo arthritis, unspecifiedChron ic kidney disease, unspecified Jul-0 1-201 6 Jay Hanh. [address], [address], [place], [place], [address], [place]. tel:[phone] [facility], [address], [place], [place], [address], [place] tel:[phone] [facility] Rheumatoid arthritis w/o rheumatoid factor, multiple sites 4-201 5 [facility] [employer] . . [facility], [address], [place], [place], [address], [place] tel:[phone] [facility] Chronic kidney disease, unspecifiedOther long-term (current) drug therapyEssential (primary) hypertensionUnsp ecified osteoarthritis, unspecified siteObesity, unspecifiedRheum atoid arthritis w/o rheumatoid factor, multiple sites 0 1-201 5 Jay Hahn. [address], [address], [place], [place], [address], [place]. tel:[phone] [facility], [address], [place], [place], [address], [place] tel:[phone] [facility] OSTEOARTHROS NOS-UNSPECPERIPH VASCULAR DIS NOSRHEUMATOID ARTHRITISLUMBOSA CRAL SPONDYLOSISChron ic kidney disease, unspecifiedOther medical and health services manager (current) drug therapy Jay Hanh. [address], [address], [place], [place], [address], [place]. tel:[phone] [facility], [address], [place], [place], [address], [place] tel:[phone] [facility] Rheumatoid arthritis, unspecified [facility] [employer]version . . [facility], [address], [place], [place], [address], [place] tel:[phone] [facility] CERVICAL DISC DEGENLUMBOSACRAL SPONDYLOSISRHEUM ATOID ARTHRITISOSTEOAR THROS NOS-UNSPEC [facility] Conversion . . [facility], [address], [place], [place], [address], [place] tel:[phone] [facility] Spondylosis w/o myelopathy or radiculopathy, lumbar regionAnemia, unspecifiedUnspe cified osteoarthritis, unspecified siteCervical disc disorder, unsp, unspecified cervical regionRheumatoid arthritis, unspecifiedOther medical and health services manager (current) drug therapyObesity, unspecified Jay Hanh. [address], [address], [place], [place], [address], [place]. tel:[phone] [facility], [address], [place], [place], [address], [place] tel:[phone] [facility] OBESITY NOSLONG-TERM USE MEDS NECRHEUMATOID ARTHRITIS 5 Jay Hanh. [address], [place], [place], [address], [place]. tel:[phone] [facility], [address], [place], [place], [address], [place] tel:[phone] [facility] MALAISE AND FATIGUE NECOSTEOARTHROS NOS-UNSPEC [employer] Conversion . . [facility], [address], [place], [place], [address], [place] tel:[phone] [facility] OSTEOARTHROS NOS-UNSPECOVARIA N FAILURE NECCERVICAL DISC DEGENJOINT PAIN-MULT JTSOTHER PSORIASIS Z[facility] Conversion . . [facility], [address], [place], [place], [address], [place] tel:[phone] [facility] No Information [facility] [employer]version . . [facility], [address], [place], [place], [address], [place] tel:[phone] [facility] Pain in unspecified jointUnspecified osteoarthritis, unspecified sitePain in unspecified handSpondylosis w/o myelopathy or radiculopathy, lumbar regionCervical disc disorder, unsp, unspecified cervical regionPneumonia, unspecified organismElevated erythrocyte sedimentation ratePsoriasis, unspecifiedObesi ty, unspecified Jay Schafer. [address], [place], [place], [address], [place]. tel:[phone] [facility], [address], [place], [place], [address], [place] tel:[phone] [facility] CHEST PAIN NOSPNEUMONIA, ORGANISM NOSJOINT PAIN-MULT JTS Fe [facility] Conversion . . [facility], [address], [place], [place], [address], [place] tel:[phone] AARA [place] CHEST PAIN NOSJOINT PAIN-MULT JTSMALAISE AND FATIGUE NECMYALGIA AND MYOSITIS NOS 5 [facility] [employer] . . Prolonged Service, Office [facility], [address], [place], [place], [address], [place] tel:[phone] [facility] [place] Pain in unspecified jointPsoriasis, unspecifiedMyalg iaOther fatiguePneumonia , unspecified organismPleurody niaOther primary ovarian failureLow back pain 5 Jay Swati. [address], [place], [place], [address], [place]. tel:[phone] Family History Family Member Type Diagnosis Age At Onset Problem (finding) Arthritis Problem (finding) Thyroid problems Problem (finding) Hypertension Problem (finding) Bleeding disorder Problem (finding) Psoriasis Problem (finding) Mother Problem (finding) Number of Brothers Problem (finding) Cancer Problem (finding) Asthma Problem (finding) Rheumatoid Arthritis Problem (finding) Number of Sisters Decea sed Problem (finding) Father Problem (finding) Number of Brothers Beth ng Problem (finding) The patient re ports no changes except otherwise noted during the present visit Problem (finding) Osteoarthritis Problem (finding) Number of Sisters Livin g Problem (finding) Asthma Problem (finding) Number of Children Problem (finding) Cancer Problem (finding) Number of Sisters Payers Payer name Insurance type Covered libertarian ID Authoriza tion(s) Medicare 45626 [id number] [place] PPO [id number] Social History Type Description Quantity Date Captured Comments Alcohol Use Details Unknown Caffeine Use Details Unknown Tobacco Use Status No Information Smoking Status No Information Sex Female Chief Complaint And Reason For Visit No Information Reason For Referral Reason For Referral No Information Plan Of Treatment Date Type Action Status Goal Dietary manageme nt education, guidance, and counseling completed Referral Ordered: Pain Medicine (related to Spondylosis w/o myelopathy or radiculopathy, lumbar region) ordered Referral Ordered: Referrals: Pain Medicine. Evaluate and treat ordered Referral Ordered: Physical Therapy (related to Polyosteoarthritis, unspecified) ordered Referral Referred To: Physical Therapy Ordered: Referrals: Physical Therapy. Evaluate and treat ordered Future Order: Lab Order CBC (Aut omated) (3001), Collected on: , Sent on: Sent Future Order: Lab Order CMP (100 1), Collected on: , Sent on: Sent Future Order: Lab Order C-Reacti ve Protein (1009), Collected on: , Sent on: Sent Future Order: Lab Order Sed Rate (Automated) (7824), Collected on: , Sent on: Sent Future Order: Lab Order CBC (Aut omated) (3001), Sent on: Sent Future Order: Lab Order CMP (1001), Sent on: Sent Future Order: Lab Order C-Reacti ve Protein (1009), Sent on: Sent Future Order: Lab Order Sed Rate (Automated) (8638), Sent on: Sent Future Order: Lab Order CBC (Aut omated) (3001), Ordered on: Ordered Future Order: Lab Order CMP (1001), Order ed on: Ordered Future Order: Lab Order C-Reacti ve Protein (1009), Ordered on: Ordered Future Order: Lab Order Sed Rate (Automated) (9465), Ordered on: Ordered Future Order: Lab Order CBC (Aut omated) (3001), Collected on: , Sent on: Sent Future Order: Lab Order CMP (100 1), Collected on: , Sent on: Sent Future Order: Lab Order C-Reacti ve Protein (1009), Collected on: , Sent on: Sent Future Order: Lab Order Sed Rate (Automated) (3195), Collected on: , Sent on: Sent History Of Present Illness Encounter Date Complaint History Of Prese nt Illness Rheumatoid Arthritis Rheumatoid Arthritis Rheumatoid Arthritis Rheumatoid Arthritis Rheumatoid Arthritis Rheumatoid Arthritis Rheumatoid Arthritis Rheumatoid Arthritis Rheumatoid Arthritis Rheumatoid Arthritis Functional Status Date Functional Assessmen t No Information Instructions Date Instruction Additional Infor nico Overall stable RA . Mild rt hand increased s/s 02/2020 but she deferred raise in MTX to 6 tabs weekly and deferred addition of plaquenil. Mainly rt wrist mild puffiness then. Otherwise lot of hand OA. Today reports same s/s on telmed. Limited by lack of exam. Continues ti defer changes. Says she is overwhelmed by her daughters being unwell. Labs with mild elevated aprs but no synovitis or infections 02/2020 and will follow for now. She has stable CKD and is not on NSAIDs. Lfts normal with hx of fatty liver. DXA done 06/2016 is normal despite being on arimidex. Says oncology is following it.She had bilateral shoulder cortisone injections in 09/2015 which helped. Xrays with GH and AC OA. 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 She also has s/s suggestive of PVD in legs. These are her chronic active issues and reported stable. She decided to not go to pain mx or do PT for spine djd. In addition she can also get aches from arimidex.Discussed with patient diagnosis, prognosis and treatment options. Discussed with patient benefits of treatment including symptoms relief, functional improvement and preventing joint deformities or damage. Discussed with patient possible side effects of treatment and need for regular monitoring with labs. Patient expressed understanding.Plan:Labs are due and will fax to lab of her choice - daughter will be taking her for labsMinimal tylenol use advised given reported fatty liver on USGContinue MTX 5 tabs weekly- renally adjusted. If lfts high need to lower dose further and can in future re-add low dose plaquenil [1 tab only as diarrhea on 2 tabs].Continue Folate 1 mg daily.Calcium 600 mgs twice daily and Vitamin D 1000 units daily.Labs q 3 months for monitoring Return to clinic 3 months Patient verbalized understanding and agreement with the plan. A copy of this report has been sent to the referring provider. 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 She declined PT for shoulder and spine OA.Given diffuse OA- approved permanent handicap placard. She will add turmeric to her diet. 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 XRay +. Deferred PT in past. Referred to pain Mx but declined. Says she does not want more meds or injections. 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 If abnormal labs indicate change in treatment, the patient will be called. If not, the labs will be discussed with patient at the next follow up visit. Patient is welcome to call at any time.-The medication cannot be used in and breast feeding or at times of infections. If there are plans for the medication has to be stopped about 3 months before trying to conceive.-During moderate-severe active infections of any kind, medication is usually held until the infection resolves. Please contact your PCP if you have infections, for treatment. -If you are having a major surgery, the medication has to be held 1-2 weeks before and after the surgery to reduce risk of infections. -Daily and/or heavy alcohol use is not recommended. -Live vaccines like shingles, yellow fever, measles etc are contraindicated while on treatment. A shingles vaccine can be taken 2-4 weeks before starting the medication.- Other routine vaccines recommended [influenza, Pneumovax]- Maintain good control on BP, lipids, diabetes with help of PCP to reduce cardiac risks- Smoking should be avoided- Patient to inform us of any malignancies or comorbidities-If you have life threatening or unexplained disabling symptoms and signs of any kind, please report to the ER- Patient advised to call for clarifications or questions. Methotrexate side effects I discussed the side effects in detail. These include aphthous ulcers, stomatitis, alopecia, GI upset, cytopenias with increased risk of infections, bleeding, anemia, hepatitis, a severe???hypersensitivity pneumonitis, and the possibility of cirrhosis, which cannot be fully monitored by: lab tests. It was also discussed that psoriatic patients seem to have a higher risk of cirrhosis and the current recommendation from the [employer] is to get surveillance liver biopsies every several years. It was emphasized that Methotrexate can cause deformities and greatly increase the risk of spontaneous abortions, and under no circumstances is the patient to become or conceive while taking Methotrexate, and would need to be methotrexate free for a period of three months prior to conception. Related to Other long-term (current) drug therapy Overall stable RA . Mild rt hand increased s/s but she defers raise in MTX to 6 tabs weekly and defers addition of plaquenil. Mainly rt wrist mild puffiness. Otherwise lot of hand OA.Labs with mild elevated aprs but no synovitis or infections and will follow for now. She has stable CKD and is not on NSAIDs. Lfts normal with hx of fatty liver. DXA done 06/2016 is normal despite being on arimidex. Says oncology is following it.She had bilateral shoulder cortisone injections in 09/2015 which helped. Xrays with GH and AC OA. 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 She also has s/s suggestive of PVD in legs. These are her chronic active issues and reported stable. She decided to not go to pain mx or do PT for spine djd. In addition she can also get aches from arimidex.Discussed with patient diagnosis, prognosis and treatment options. Discussed with patient benefits of treatment including symptoms relief, functional improvement and preventing joint deformities or damage. Discussed with patient possible side effects of treatment and need for regular monitoring with labs. Patient expressed understanding.Plan:Labs todayMinimal tylenol use advised given reported fatty liver on USGContinue MTX 5 tabs weekly- renally adjusted. If lfts high need to lower dose further and can in future re-add low dose plaquenil [1 tab only as diarrhea on 2 tabs].Continue Folate 1 mg daily.Calcium 600 mgs twice daily and Vitamin D 1000 units daily.Labs q 3 months for monitoring Return to clinic 4 months Patient verbalized understanding and agreement with the plan. A copy of this report has been sent to the referring provider. 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 She declined PT for shoulder and spine OA.Given diffuse OA- approved permanent handicap placard. She will add turmeric to her diet. 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 XRay +. Deferred PT in past. Referred to pain Mx but declined. Says she does not want more meds or injections. 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 If abnormal labs indicate change in treatment, the patient will be called. If not, the labs will be discussed with patient at the next follow up visit. Patient is welcome to call at any time.-The medication cannot be used in and breast feeding or at times of infections. If there are plans for the medication has to be stopped about 3 months before trying to conceive.-During moderate-severe active infections of any kind, medication is usually held until the infection resolves. Please contact your PCP if you have infections, for treatment. -If you are having a major surgery, the medication has to be held 1-2 weeks before and after the surgery to reduce risk of infections. -Daily and/or heavy alcohol use is not recommended. -Live vaccines like shingles, yellow fever, measles etc are contraindicated while on treatment. A shingles vaccine can be taken 2-4 weeks before starting the medication.- Other routine vaccines recommended [influenza, Pneumovax]- Maintain good control on BP, lipids, diabetes with help of PCP to reduce cardiac risks- Smoking should be avoided- Patient to inform us of any malignancies or comorbidities-If you have life threatening or unexplained disabling symptoms and signs of any kind, please report to the ER- Patient advised to call for clarifications or questions. Methotrexate side effects I discussed the side effects in detail. These include aphthous ulcers, stomatitis, alopecia, GI upset, cytopenias with increased risk of infections, bleeding, anemia, hepatitis, a severe???hypersensitivity pneumonitis, and the possibility of cirrhosis, which cannot be fully monitored by: lab tests. It was also discussed that psoriatic patients seem to have a higher risk of cirrhosis and the current recommendation from the [employer] is to get surveillance liver biopsies every several years. It was emphasized that Methotrexate can cause deformities and greatly increase the risk of spontaneous abortions, and under no circumstances is the patient to become or conceive while taking Methotrexate, and would need to be methotrexate free for a period of three months prior to conception. 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 Labs with mild elevated aprs but no synovitis or infections and will follow for now. She has stable CKD and is not on NSAIDs. Lfts normal with hx of fatty liver. DXA done 06/2016 is normal despite being on arimidex. Says oncology is following it.She had bilateral shoulder cortisone injections in 09/2015 which helped. Xrays with GH and AC OA. 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 She also has s/s suggestive of PVD in legs. These are her chronic active issues and reported stable. She decided to not go to pain mx or do PT for spine djd. In addition she can also get aches from arimidex.Discussed with patient diagnosis, prognosis and treatment options. Discussed with patient benefits of treatment including symptoms relief, functional improvement and preventing joint deformities or damage. Discussed with patient possible side effects of treatment and need for regular monitoring with labs. Patient expressed understanding.Plan:Minimal tylenol use advised given reported fatty liver on USGContinue MTX and lower dose to 5 tabs weekly- renally adjusted. If lfts high need to lower dose further and can in future re-add low dose plaquenil [1 tab only as diarrhea on 2 tabs].Continue Folate 1 mg daily.Calcium 600 mgs twice daily and Vitamin D 1000 units daily.Labs q 3 months for monitoring Return to clinic 4 months Patient verbalized understanding and agreement with the plan. A copy of this report has been sent to the referring provider. 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 She declined PT for shoulder and spine OA.Given diffuse OA- approved permanent handicap placard. 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 XRay +. Deferred PT in past. Referred to pain Mx but declined. Says she does not want more meds or injections. 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 If abnormal labs indicate change in treatment, the patient will be called. If not, the labs will be discussed with patient at the next follow up visit. Patient is welcome to call at any time.-The medication cannot be used in and breast feeding or at times of infections. If there are plans for the medication has to be stopped about 3 months before trying to conceive.-During moderate-severe active infections of any kind, medication is usually held until the infection resolves. Please contact your PCP if you have infections, for treatment. -If you are having a major surgery, the medication has to be held 1-2 weeks before and after the surgery to reduce risk of infections. -Daily and/or heavy alcohol use is not recommended. -Live vaccines like shingles, yellow fever, measles etc are contraindicated while on treatment. A shingles vaccine can be taken 2-4 weeks before starting the medication.- Other routine vaccines recommended [influenza, Pneumovax]- Maintain good control on BP, lipids, diabetes with help of PCP to reduce cardiac risks- Smoking should be avoided- Patient to inform us of any malignancies or comorbidities-If you have life threatening or unexplained disabling symptoms and signs of any kind, please report to the ER- Patient advised to call for clarifications or questions. Methotrexate side effects I discussed the side effects in detail. These include aphthous ulcers, stomatitis, alopecia, GI upset, cytopenias with increased risk of infections, bleeding, anemia, hepatitis, a severe???hypersensitivity pneumonitis, and the possibility of cirrhosis, which cannot be fully monitored by: lab tests. It was also discussed that psoriatic patients seem to have a higher risk of cirrhosis and the current recommendation from the [employer] is to get surveillance liver biopsies every several years. It was emphasized that Methotrexate can cause deformities and greatly increase the risk of spontaneous abortions, and under no circumstances is the patient to become or conceive while taking Methotrexate, and would need to be methotrexate free for a period of three months prior to conception. Related to Other long-term (current) drug therapy -2019 Overall stable RA on lower MTX dose -not enough to change meds at this time. She has stable CKD and is not on NSAIDs. Labs due and says heme/onc did them 07/2019-will will request them todayDXA done 06/2016 is normal despite being on arimidex. Says oncology is following it.She had bilateral shoulder cortisone injections in 09/2015 which helped. Xrays with GH and AC OA. 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 She also has s/s suggestive of PVD in legs. These are her chronic active issues and reported stable. She decided to not go to pain mx or do PT.Discussed with patient diagnosis, prognosis and treatment options. Discussed with patient benefits of treatment including symptoms relief, functional improvement and preventing joint deformities or damage. Discussed with patient possible side effects of treatment and need for regular monitoring with labs. Patient expressed understanding.Plan:Minimal tylenol use advised given reported fatty liver on USGContinue MTX 6 tabs weekly- renally adjusted. If lfts high need to lower dose and can in future re-add low dose plaquenil [1 tab only as diarrhea on 2 tabs].Continue Folate 1 mg daily.Calcium 600 mgs twice daily and Vitamin D 1000 units daily.Labs q 1-3 months for monitoring Return to clinic October SB/KS due to telemed today, usually does q4 mos [lives in [facility]] and labs due prior to that apptWill request labs done 07/2019 from [facility] Related to Rheumatoid arthritis w/o rheumatoid factor, multiple sites Educated patient on OA and conservative strategies like - weight loss, PT, exercise, local heat, local gels. She declined PT for shoulder and spine OA.Given diffuse OA- approved permanent handicap placard. 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 XRay +. Deferred PT in past. Referred to pain Mx but declined. Says she does not want more meds or injections. 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 If abnormal labs indicate change in treatment, the patient will be called. If not, the labs will be discussed with patient at the next follow up visit. Patient is welcome to call at any time.-The medication cannot be used in and breast feeding or at times of infections. If there are plans for the medication has to be stopped about 3 months before trying to conceive.-During moderate-severe active infections of any kind, medication is usually held until the infection resolves. Please contact your PCP if you have infections, for treatment. -If you are having a major surgery, the medication has to be held 1-2 weeks before and after the surgery to reduce risk of infections. -Daily and/or heavy alcohol use is not recommended. -Live vaccines like shingles, yellow fever, measles etc are contraindicated while on treatment. A shingles vaccine can be taken 2-4 weeks before starting the medication.- Other routine vaccines recommended [influenza, Pneumovax]- Maintain good control on BP, lipids, diabetes with help of PCP to reduce cardiac risks- Smoking should be avoided- Patient to inform us of any malignancies or comorbidities-If you have life threatening or unexplained disabling symptoms and signs of any kind, please report to the ER- Patient advised to call for clarifications or questions. Methotrexate side effects I discussed the side effects in detail. These include aphthous ulcers, stomatitis, alopecia, GI upset, cytopenias with increased risk of infections, bleeding, anemia, hepatitis, a severe???hypersensitivity pneumonitis, and the possibility of cirrhosis, which cannot be fully monitored by: lab tests. It was also discussed that psoriatic patients seem to have a higher risk of cirrhosis and the current recommendation from the [employer] is to get surveillance liver biopsies every several years. It was emphasized that Methotrexate can cause deformities and greatly increase the risk of spontaneous abortions, and under no circumstances is the patient to become or conceive while taking Methotrexate, and would need to be methotrexate free for a period of three months prior to conception. Related to Other long-term (current) drug therapy Overall stable RA on lower MTX dose with mild 1 joint tenderness but not enough to change meds at this time. She has stable CKD and is not on NSAIDs. Labs due today. DXA done 06/2016 is normal despite being on arimidex. Says oncology is following it.She had bilateral shoulder cortisone injections in 09/2015 which helped. Xrays with GH and AC OA. 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 She also has s/s suggestive of PVD in legs. These are her chronic active issues and reported stable. She decided to not go to pain mx or do PT.Discussed with patient diagnosis, prognosis and treatment options. Discussed with patient benefits of treatment including symptoms relief, functional improvement and preventing joint deformities or damage. Discussed with patient possible side effects of treatment and need for regular monitoring with labs. Patient expressed understanding.Plan:Labs today for monitoring Minimal tylenol use advised given reported fatty liver on USontinue MTX 6 tabs weekly- renally adjusted. If lfts high need to lower dose and can in future re-add low dose plaquenil [1 tab only as diarrhea on 2 tabs].Continue Folate 1 mg daily.Calcium 600 mgs twice daily and Vitamin D 1000 units daily.Return to clinic 4 mos [lives in [facility]Corrona fup next visit Related to Rheumatoid arthritis w/o rheumatoid factor, multiple sites Educated patient on OA and conservative strategies like - weight loss, PT, exercise, local heat, local gels. She declined PT for shoulder and spine OA.Given diffuse OA- approved permanent handicap placard. 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 XRay +. Deferred PT in past. Referred to pain Mx but declined. Says she does not want more meds or injections. 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 If abnormal labs indicate change in treatment, the patient will be called. If not, the labs will be discussed with patient at the next follow up visit. Patient is welcome to call at any time.-The medication cannot be used in and breast feeding or at times of infections. If there are plans for the medication has to be stopped about 3 months before trying to conceive.-During moderate-severe active infections of any kind, medication is usually held until the infection resolves. Please contact your PCP if you have infections, for treatment. -If you are having a major surgery, the medication has to be held 1-2 weeks before and after the surgery to reduce risk of infections. -Daily and/or heavy alcohol use is not recommended. -Live vaccines like shingles, yellow fever, measles etc are contraindicated while on treatment. A shingles vaccine can be taken 2-4 weeks before starting the medication.- Other routine vaccines recommended [influenza, Pneumovax]- Maintain good control on BP, lipids, diabetes with help of PCP to reduce cardiac risks- Smoking should be avoided- Patient to inform us of any malignancies or comorbidities-If you have life threatening or unexplained disabling symptoms and signs of any kind, please report to the ER- Patient advised to call for clarifications or questions. Methotrexate side effects I discussed the side effects in detail. These include aphthous ulcers, stomatitis, alopecia, GI upset, cytopenias with increased risk of infections, bleeding, anemia, hepatitis, a severe???hypersensitivity pneumonitis, and the possibility of cirrhosis, which cannot be fully monitored by: lab tests. It was also discussed that psoriatic patients seem to have a higher risk of cirrhosis and the current recommendation from the [employer] is to get surveillance liver biopsies every several years. It was emphasized that Methotrexate can cause deformities and greatly increase the risk of spontaneous abortions, and under no circumstances is the patient to become or conceive while taking Methotrexate, and would need to be methotrexate free for a period of three months prior to conception. 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 She has stable CKD and is not on NSAIDs. Labs due today. Reports high lfts in 10/2018 with PCP but normal on our check. Will recheck today.DXA done 06/2016 is normal despite being on arimidex. Says oncology is following it.She had bilateral shoulder cortisone injections in 09/2015 which helped. Xrays with GH and AC OAShe clinically does have evidence of cervical djd and has lumbar djd plus hand OA. She also has s/s suggestive of PVD in legs. These are her chronic active issues and reported stable. She decided to not go to pain mx or do PT.Discussed with patient diagnosis, prognosis and treatment options. Discussed with patient benefits of treatment including symptoms relief, functional improvement and preventing joint deformities or damage. Discussed with patient possible side effects of treatment and need for regular monitoring with labs. Patient expressed understanding.Plan:Request kristine med abdomen USG reportMinimal tylenol use advised given reported fatty liver on USGContinue MTX 6 tabs weekly- renally adjusted. Watch and repeat lfts today. If high need to lower dose and re-add low dose plaquenil [1 tab only as diarrhea on 2 tabs].Continue Folate 1 mg daily.Calcium 600 mgs twice daily and Vitamin D 1000 units daily.Labs for close intense monitoring on meds. Due todayReturn to clinic 3 mosCorrona fup next visit Related to Rheumatoid arthritis w/o rheumatoid factor, multiple sites Educated patient on OA and conservative strategies like - weight loss, PT, exercise, local heat, local gels. She declined PT for shoulder and spine OA.Given diffuse OA- approved permanent handicap placard. 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 XRay +. Deferred PT in past. Referred to pain Mx but declined. 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 If abnormal labs indicate change in treatment, the patient will be called. If not, the labs will be discussed with patient at the next follow up visit. Patient is welcome to call at any time.-The medication cannot be used in and breast feeding or at times of infections. If there are plans for the medication has to be stopped about 3 months before trying to conceive.-During moderate-severe active infections of any kind, medication is usually held until the infection resolves. Please contact your PCP if you have infections, for treatment. -If you are having a major surgery, the medication has to be held 1-2 weeks before and after the surgery to reduce risk of infections. -Daily and/or heavy alcohol use is not recommended. -Live vaccines like shingles, yellow fever, measles etc are contraindicated while on treatment. A shingles vaccine can be taken 2-4 weeks before starting the medication.- Other routine vaccines recommended [influenza, Pneumovax]- Maintain good control on BP, lipids, diabetes with help of PCP to reduce cardiac risks- Smoking should be avoided- Patient to inform us of any malignancies or comorbidities-If you have life threatening or unexplained disabling symptoms and signs of any kind, please report to the ER- Patient advised to call for clarifications or questions. Methotrexate side effects I discussed the side effects in detail. These include aphthous ulcers, stomatitis, alopecia, GI upset, cytopenias with increased risk of infections, bleeding, anemia, hepatitis, a severe???hypersensitivity pneumonitis, and the possibility of cirrhosis, which cannot be fully monitored by: lab tests. It was also discussed that psoriatic patients seem to have a higher risk of cirrhosis and the current recommendation from the [employer] is to get surveillance liver biopsies every several years. It was emphasized that Methotrexate can cause deformities and greatly increase the risk of spontaneous abortions, and under no circumstances is the patient to become or conceive while taking Methotrexate, and would need to be methotrexate free for a period of three months prior to conception. Related to Other long-term (current) drug therapy Dietary management e ducation, guidance, and counseling Related to Body mass index (BMI) 38.0-38.9, adult Overall stable RA of f plaquenil and on lower MTX dose. She has stable CKD and is not on NSAIDs. Labs due today.DXA done 06/2016 is normal despite being on arimidex. Says oncology is following it.She had bilateral shoulder cortisone injections in 09/2015 which helped. Xrays with GH and AC OAShe clinically does have evidence of cervical djd and has lumbar djd plus hand OA. She also has s/s suggestive of PVD in legs. These are her chronic active issues and reported stable. She decided to not go to pain mx or do PT.Discussed with patient diagnosis, prognosis and treatment options. Discussed with patient benefits of treatment including symptoms relief, functional improvement and preventing joint deformities or damage. Discussed with patient possible side effects of treatment and need for regular monitoring with labs. Patient expressed understanding.Plan:Continue MTX 6 tabs weekly- renally adjustedContinue Folate 1 mg daily.Calcium 600 mgs twice daily and Vitamin D 1000 units daily.Labs for close intense monitoring on meds. Due todayReturn to clinic 3 mosCorrona fup next visit Tylenol prn pain for now [no nsaids as hx of ckd]. 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 She declined PT for shoulder and spine OA.Given diffuse OA- approved permanent handicap placard. 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 XRay +. Deferred PT in past. Referred to pain Mx but declined. 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 If abnormal labs indicate change in treatment, the patient will be called. If not, the labs will be discussed with patient at the next follow up visit. Patient is welcome to call at any time.-The medication cannot be used in and breast feeding or at times of infections. If there are plans for the medication has to be stopped about 3 months before trying to conceive.-During moderate-severe active infections of any kind, medication is usually held until the infection resolves. Please contact your PCP if you have infections, for treatment. -If you are having a major surgery, the medication has to be held 1-2 weeks before and after the surgery to reduce risk of infections. -Daily and/or heavy alcohol use is not recommended. -Live vaccines like shingles, yellow fever, measles etc are contraindicated while on treatment. A shingles vaccine can be taken 2-4 weeks before starting the medication.- Other routine vaccines recommended [influenza, Pneumovax]- Maintain good control on BP, lipids, diabetes with help of PCP to reduce cardiac risks- Smoking should be avoided- Patient to inform us of any malignancies or comorbidities-If you have life threatening or unexplained disabling symptoms and signs of any kind, please report to the ER- Patient advised to call for clarifications or questions. Methotrexate side effects I discussed the side effects in detail. These include aphthous ulcers, stomatitis, alopecia, GI upset, cytopenias with increased risk of infections, bleeding, anemia, hepatitis, a severe???hypersensitivity pneumonitis, and the possibility of cirrhosis, which cannot be fully monitored by: lab tests. It was also discussed that psoriatic patients seem to have a higher risk of cirrhosis and the current recommendation from the [employer] is to get surveillance liver biopsies every several years. It was emphasized that Methotrexate can cause deformities and greatly increase the risk of spontaneous abortions, and under no circumstances is the patient to become or conceive while taking Methotrexate, and would need to be methotrexate free for a period of three months prior to conception. Related to Other long-term (current) drug therapy Overall stable RA. C VENICE 0. She has stable CKD and is not on NSAIDs. Labs due today.DXA done 06/2016 is normal despite being on arimidex. Says oncology is following it.She had bilateral shoulder cortisone injections in 09/2015 which helped. She declines cortisone to shoulders today-x rays with GH and AC OAShe clinically does have evidence of cervical djd and has lumbar djd plus hand OA. She also has s/s suggestive of PVD in legs. These are her most active issues.Discussed with patient diagnosis, prognosis and treatment options. Discussed with patient benefits of treatment including symptoms relief, functional improvement and preventing joint deformities or damage. Discussed with patient possible side effects of treatment and need for regular monitoring with labs. Patient expressed understanding.Plan:Continue MTX and taper to 6 tabs weekly given ckd and stabilityContinue Folate 1 mg daily.Continue Hydroxychloroquine 200 mgs twice daily with annual ophthalmology fup (last eye exam done within the past couple of months)Calcium 600 mgs twice daily and Vitamin D 1000 units daily.Labs for close intense monitoring on meds. Due todayReturn to clinic 3 mosCorrona fup todayTylenol prn pain for now [no nsaids as hx of ckd]. 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 Referral given to patient. 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 XRay +. Deferred PT in past. Referred to pain Mx today. 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 If abnormal labs indicate change in treatment, the patient will be called. If not, the labs will be discussed with patient at the next follow up visit. Patient is welcome to call at any time.-The medication cannot be used in and breast feeding or at times of infections. If there are plans for the medication has to be stopped about 3 months before trying to conceive.-During moderate-severe active infections of any kind, medication is usually held until the infection resolves. Please contact your PCP if you have infections, for treatment. -If you are having a major surgery, the medication has to be held 1-2 weeks before and after the surgery to reduce risk of infections. -Daily and/or heavy alcohol use is not recommended. -Live vaccines like shingles, yellow fever, measles etc are contraindicated while on treatment. A shingles vaccine can be taken 2-4 weeks before starting the medication.- Other routine vaccines recommended [influenza, Pneumovax]- Maintain good control on BP, lipids, diabetes with help of PCP to reduce cardiac risks- Smoking should be avoided- Patient to inform us of any malignancies or comorbidities-If you have life threatening or unexplained disabling symptoms and signs of any kind, please report to the ER- Patient advised to call for clarifications or questions. Methotrexate side effects I discussed the side effects in detail. These include aphthous ulcers, stomatitis, alopecia, GI upset, cytopenias with increased risk of infections, bleeding, anemia, hepatitis, a severe???hypersensitivity pneumonitis, and the possibility of cirrhosis, which cannot be fully monitored by: lab tests. It was also discussed that psoriatic patients seem to have a higher risk of cirrhosis and the current recommendation from the [employer] is to get surveillance liver biopsies every several years. It was emphasized that Methotrexate can cause deformities and greatly increase the risk of spontaneous abortions, and under no circumstances is the patient to become or conceive while taking Methotrexate, and would need to be methotrexate free for a period of three months prior to conception. I discussed the side effects of Plaquenil in detail with the patient. These include: severe rash, GI upset, headaches, blurry vision, and the potential for retinal toxicity, which leads to visual loss and the need for regular monitoring by an skidder. 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 C VENICE 0. She has stable CKD and is not on NSAIDs. Labs due today.DXA done 06/2016 is normal despite being on arimidex. Says oncology is following it.She had bilateral shoulder cortisone injections in 09/2015 which helped. She declines cortisone to shoulders today-x rays with GH and AC OAShe clinically does have evidence of cervical djd and has lumbar djd plus hand OA. She also has s/s suggestive of PVD in legs. Discussed with patient diagnosis, prognosis and treatment options. Discussed with patient benefits of treatment including symptoms relief, functional improvement and preventing joint deformities or damage. Discussed with patient possible side effects of treatment and need for regular monitoring with labs. Patient expressed understanding.Plan:Continue MTX 7 tabs weekly + Folate 1 mg daily.Continue Hydroxychloroquine 200 mgs twice daily with annual ophthalmology fup (last eye exam done within the past couple of months)Calcium 600 mgs twice daily and Vitamin D 1000 units daily.Labs for close intense monitoring on meds. Due todayReturn to clinic 4 mosCorrona fup as neededTylenol prn pain for now [no nsaids as hx of ckd]. 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 Referral given to patient. 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 XRay +. Deferred PT in past but agreeable now to PT. Referral given. Defers pain management. 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 If abnormal labs indicate change in treatment, the patient will be called. If not, the labs will be discussed with patient at the next follow up visit. Patient is welcome to call at any time.-The medication cannot be used in and breast feeding or at times of infections. If there are plans for the medication has to be stopped about 3 months before trying to conceive.-During moderate-severe active infections of any kind, medication is usually held until the infection resolves. Please contact your PCP if you have infections, for treatment. -If you are having a major surgery, the medication has to be held 1-2 weeks before and after the surgery to reduce risk of infections. -Daily and/or heavy alcohol use is not recommended. -Live vaccines like shingles, yellow fever, measles etc are contraindicated while on treatment. A shingles vaccine can be taken 2-4 weeks before starting the medication.- Other routine vaccines recommended [influenza, Pneumovax]- Maintain good control on BP, lipids, diabetes with help of PCP to reduce cardiac risks- Smoking should be avoided- Patient to inform us of any malignancies or comorbidities-If you have life threatening or unexplained disabling symptoms and signs of any kind, please report to the ER- Patient advised to call for clarifications or questions. Methotrexate side effects I discussed the side effects in detail. These include aphthous ulcers, stomatitis, alopecia, GI upset, cytopenias with increased risk of infections, bleeding, anemia, hepatitis, a severe???hypersensitivity pneumonitis, and the possibility of cirrhosis, which cannot be fully monitored by: lab tests. It was also discussed that psoriatic patients seem to have a higher risk of cirrhosis and the current recommendation from the [employer] is to get surveillance liver biopsies every several years. It was emphasized that Methotrexate can cause deformities and greatly increase the risk of spontaneous abortions, and under no circumstances is the patient to become or conceive while taking Methotrexate, and would need to be methotrexate free for a period of three months prior to conception. I discussed the side effects of Plaquenil in detail with the patient. These include: severe rash, GI upset, headaches, blurry vision, and the potential for retinal toxicity, which leads to visual loss and the need for regular monitoring by an skidder. Related to Other long-term (current) drug therapy Overall stable RA. C VENICE 0. She has stable CKD and is not on NSAIDs. Labs due today.DXA done 06/2016 is normal despite being on arimidex. 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 She also has s/s suggestive of PVD in legs. Discussed with patient diagnosis, prognosis and treatment options. Discussed with patient benefits of treatment including symptoms relief, functional improvement and preventing joint deformities or damage. Discussed with patient possible side effects of treatment and need for regular monitoring with labs. Patient expressed understanding.Plan:Continue MTX 7 tabs weekly + Folate 1 mg daily.Continue Hydroxychloroquine 200 mgs twice daily with annual ophthalmology fup.Calcium 600 mgs twice daily and Vitamin D 1000 units daily.Labs for close intense monitoring on meds.Return to clinic 4 mosCorrona fup as neededTylenol prn pain for now [no nsaids as hx of ckd]. 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 XRay +. Defers PT. Defers pain management. 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 If abnormal labs indicate change in treatment, the patient will be called. If not, the labs will be discussed with patient at the next follow up visit. Patient is welcome to call at any time.-The medication cannot be used in and breast feeding or at times of infections. If there are plans for the medication has to be stopped about 3 months before trying to conceive.-During moderate-severe active infections of any kind, medication is usually held until the infection resolves. Please contact your PCP if you have infections, for treatment. -If you are having a major surgery, the medication has to be held 1-2 weeks before and after the surgery to reduce risk of infections. -Daily and/or heavy alcohol use is not recommended. -Live vaccines like shingles, yellow fever, measles etc are contraindicated while on treatment. A shingles vaccine can be taken 2-4 weeks before starting the medication.- Other routine vaccines recommended [influenza, Pneumovax]- Maintain good control on BP, lipids, diabetes with help of PCP to reduce cardiac risks- Smoking should be avoided- Patient to inform us of any malignancies or comorbidities-If you have life threatening or unexplained disabling symptoms and signs of any kind, please report to the ER- Patient advised to call for clarifications or questions. Methotrexate side effects I discussed the side effects in detail. These include aphthous ulcers, stomatitis, alopecia, GI upset, cytopenias with increased risk of infections, bleeding, anemia, hepatitis, a severe???hypersensitivity pneumonitis, and the possibility of cirrhosis, which cannot be fully monitored by: lab tests. It was also discussed that psoriatic patients seem to have a higher risk of cirrhosis and the current recommendation from the [employer] is to get surveillance liver biopsies every several years. It was emphasized that Methotrexate can cause deformities and greatly increase the risk of spontaneous abortions, and under no circumstances is the patient to become or conceive while taking Methotrexate, and would need to be methotrexate free for a period of three months prior to conception. I discussed the side effects of Plaquenil in detail with the patient. These include: severe rash, GI upset, headaches, blurry vision, and the potential for retinal toxicity, which leads to visual loss and the need for regular monitoring by an skidder. Related to Other long-term (current) drug therapy Educated patient on OA and conservative strategies like - weight loss, PT, exercise, local heat, local gels. 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 She has CKD and is not on NSAIDs. CMP stable. 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 She also has s/s suggestive of PVD in legs. Discussed with patient diagnosis, prognosis and treatment options. Discussed with patient benefits of treatment including symptoms relief, functional improvement and preventing joint deformities or damage. Discussed with patient possible side effects of treatment and need for regular monitoring with labs. Patient expressed understanding.Plan:CBC, esr, crp, cmp todayMethotrexate 7 tabs po weekly [renally adjusted]Folate 1 mg dailyCalcium 600 mgs twice daily and Vitamin D 1000 units daily Return to clinic 12 weeks with labs inhouse at that time.Corrona todayTylenol prn pain for now [no nsaids as hx of ckd]. Related to Rheumatoid arthritis w/o rheumatoid factor, multiple sites Clinically no eviden ce of a chronic inflammatory arthritis but given hx of psoriasis in remission will evaluate further with labs and xrays. Some of her s/s may represent polymyalgia like symptoms but patent is not a very good historian.She clinically does have evidence of cervical djd and suspect she may have lumbar djd also. However she does have bilateral shoulder stiffness, bilateral upper arm and thigh tenderness and i would like to rule out any other overlying condition such as RA, psoriatic arthritis or Polymyalgia Rheumatica.Plan:Cxr, rib xray, L spine xrays and hand xrays today.Complete labs today.Due for DXA/VFA also.Requested labs, shoulder xrays and neck xrays from pcp office.Tylenol prn pain for now [no nsaids as hx of ckd].Return to clinic 3-4 weeks to discuss tests.This was an extended visit, I spent an hour with the patient. More than 50% was spent on face to face counseling or coordination of care. Related to Pain in unspecified joint Educated patient on OA and conservative strategies like - weight loss, PT, exercise, local heat, local gels. Related to Unspecified osteoarthritis, unspecified site Story: 05/17/14 Related to Pneum onia, unspecified organism Story: 05/17/14 Related to Pneum onia, unspecified organism Stable RA. She has C KD and is not on NSAIDs. CMP stable. 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 She also has s/s suggestive of PVD in legs. Discussed with patient diagnosis, prognosis and treatment options. Discussed with patient benefits of treatment including symptoms relief, functional improvement and preventing joint deformities or damage. Discussed with patient possible side effects of treatment and need for regular monitoring with labs. Patient expressed understanding.Plan:CBC, esr, crp, cmp todayMethotrexate 7 tabs po weekly [renally adjusted]Folate 1 mg dailyCalcium 600 mgs twice daily and Vitamin D 1000 units daily Return to clinic 12 weeks with labs inhouse at that time.Corrona next visitTylenol prn pain for now [no nsaids as hx of ckd]. Related to Rheumatoid arthritis w/o rheumatoid factor, multiple sites Improved synovitis a nd shoulder stiffness after starting MTX 15 mgs weekly. ESR normal now and minimal crp elevation. Still has mild rt wrist synovitis and may benefit from a raise in MTX doses but she prefers to be watched on this dose over the next 2 months. 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 Plan:Methotrexate 6 tabs po weeklyFolate 1 mg dailyCalcium 600 mgs twice daily and Vitamin D 1000 units daily Labs in 6 weeks.Return to clinic 8 weeks.Corrona 02/20.Consider vectra next visit.Tylenol prn pain for now [no nsaids as hx of ckd]. Related to Rheumatoid arthritis, unspecified Clinically with infl ammatory arthritis and labs with + esr, crp and mri rt wrist suggestive of inflammatory arthritis. Seronegative though. Past psoriasis but inactive and family hx of RA. 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 Plan:Start Methotrexate 6 tabs po weeklyStart folate 1 mg dailyPrednisone 10 mgs daily for 2 weeks, then 5 mgs daily for 2 weeks and off. To only start steroids once she discusses BP management with her PCP.Calcium 600 mgs twice daily and Vitamin D 1000 units daily Labs in 4 weeks.Return to clinic 7 weeks.Corrona today.Consider vectra next visit.Tylenol prn pain for now [no nsaids as hx of ckd]. Related to RHEUMATOID ARTHRITIS Overall stable RA. C VENICE 4. She has stable CKD and is not on NSAIDs. Labs due today but says will do it with her labs thru her oncologist in few weeks. Some weather related aches from OA but no synovitis seen.DXA done 06/2016 is normal despite being on arimidex. 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 She also has s/s suggestive of PVD in legs. Discussed with patient diagnosis, prognosis and treatment options. Discussed with patient benefits of treatment including symptoms relief, functional improvement and preventing joint deformities or damage. Discussed with patient possible side effects of treatment and need for regular monitoring with labs. Patient expressed understanding.Plan:Continue MTX 7 tabs weekly + Folate 1 mg daily.Continue Hydroxychloroquine 200 mgs twice daily with annual ophthalmology fup.Calcium 600 mgs twice daily and Vitamin D 1000 units daily.Labs for close intense monitoring on meds.Return to clinic 3 mosCorrona fup as neededTylenol prn pain for now [no nsaids as hx of ckd]. Related to Rheumatoid arthritis w/o rheumatoid factor, multiple sites Story: shoulder, kne es, neck, l spine, hands Related to OSTEOARTHROS NOS-UNSPEC Stable RA. She has s table CKD and is not on NSAIDs. DXA done today is normal despite being on arimidex.She had bilateral shoulder cortisone injections in 09/2015 which helped and still feels benefit.She clinically does have evidence of cervical djd and has lumbar djd plus hand OA. She also has s/s suggestive of PVD in legs. Discussed with patient diagnosis, prognosis and treatment options. Discussed with patient benefits of treatment including symptoms relief, functional improvement and preventing joint deformities or damage. Discussed with patient possible side effects of treatment and need for regular monitoring with labs. Patient expressed understanding.In view of breast cancer diagnosis in fall 2015 s/p surgery and xrt, taken off MTX 01/2016 and replaced with Hydroxychloroquine which she has responded too. Can resume MTX once she is post-op and if heme-onc is comfortable with having her back on MTX in setting of new diagnosis of breast cancer [strong family hx reported]. She will be off MTX for at least 4-6 months or unless we see need to place her back on it.Plan:Continue Hydroxychloroquine 200 mgs twice daily.Calcium 600 mgs twice daily and Vitamin D 1000 units daily.Return to clinic 12 weeks.Corrona fup as neededTylenol prn pain for now [no nsaids as hx of ckd]. Related to Rheumatoid arthritis w/o rheumatoid factor, multiple sites Stable. Maintain pcp fup. No NSA IDs. Related to Chronic kidney disease, unspecified Overall stable RA. C VENICE 7. Mild rt wrist chronic tenderness and swelling but says pain is on and off and not keen on increasing RX and favors to be watched. She has stable CKD and is not on NSAIDs. 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 She also has s/s suggestive of PVD in legs. Discussed with patient diagnosis, prognosis and treatment options. Discussed with patient benefits of treatment including symptoms relief, functional improvement and preventing joint deformities or damage. Discussed with patient possible side effects of treatment and need for regular monitoring with labs. Patient expressed understanding.Plan:Continue MTX 7 tabs weekly + Folate 1 mg daily.Continue Hydroxychloroquine 200 mgs twice daily with annual ophthalmology fup.Calcium 600 mgs twice daily and Vitamin D 1000 units daily.Labs for close intense monitoring on meds.Return to clinic 3 mosCorrona fup as neededTylenol prn pain for now [no nsaids as hx of ckd]. 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 No synovitis now but residual shoulder stiffness. She has CKD and is not on NSAIDs. Will try a small dose raise of MTX for shoulder stiffness. Adjust dose to GFR. CMP stable. 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 She also has s/s suggestive of PVD in legs. Discussed with patient diagnosis, prognosis and treatment options. Discussed with patient benefits of treatment including symptoms relief, functional improvement and preventing joint deformities or damage. Discussed with patient possible side effects of treatment and need for regular monitoring with labs. Patient expressed understanding.Plan:CBC, esr, crp today, vectra checkMethotrexate raise to 7 tabs po weeklyFolate 1 mg dailyCalcium 600 mgs twice daily and Vitamin D 1000 units daily Return to clinic 8 weeks with labs inhouse at that time.Corrona 02/20 or next visitTylenol prn pain for now [no nsaids as hx of ckd]. Related to RHEUMATOID ARTHRITIS Stable RA. She has s table CKD and is not on NSAIDs. CMP stable. 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 She also has s/s suggestive of PVD in legs. Discussed with patient diagnosis, prognosis and treatment options. Discussed with patient benefits of treatment including symptoms relief, functional improvement and preventing joint deformities or damage. Discussed with patient possible side effects of treatment and need for regular monitoring with labs. Patient expressed understanding.In interim she had been diagnosed with lt sided breast cancer and scheduled for lumpectomy next week. In view of this new diagnosis and planned surgery- recommend to discontinue MTX for now. Will resume MTX once she is post-op and if heme-onc is comfortable with having her back on MTX in setting of new diagnosis of breast cancer [strong family hx reported]. In interim will start Hydroxychloroquine to prevent a RA flare as she will be off MTX for atleast 4-6 months. Plan:Obtain recent labs done by PCP.Discontinue Methotrexate 7 tabs po weekly.Discontinue Folate 1 mg daily.Start Hydroxychloroquine 200 mgs twice daily as she will be off MTX. No contraindication around surgical period and will help with RA management when off MTX.Calcium 600 mgs twice daily and Vitamin D 1000 units daily.Return to clinic 8 weeks with labs inhouse at that time.Corrona next visitTylenol prn pain for now [no nsaids as hx of ckd]. Related to Rheumatoid arthritis w/o rheumatoid factor, multiple sites Overall stable RA. C VENICE 7. Mild rt wrist chronic tenderness and swelling but says pain is on and off and not keen on increasing RX and favors to be watched. She has stable CKD and is not on NSAIDs. 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 She also has s/s suggestive of PVD in legs. Discussed with patient diagnosis, prognosis and treatment options. Discussed with patient benefits of treatment including symptoms relief, functional improvement and preventing joint deformities or damage. Discussed with patient possible side effects of treatment and need for regular monitoring with labs. Patient expressed understanding.Plan:Continue MTX 7 tabs weekly + Folate 1 mg daily.Continue Hydroxychloroquine 200 mgs twice daily with annual ophthalmology fup.Calcium 600 mgs twice daily and Vitamin D 1000 units daily.Labs for close intense monitoring on meds.Return to clinic 3 mosCorrona fup as neededTylenol prn pain for now [no nsaids as hx of ckd]. 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 She is on Hydroxychloroquine at this time. She has stable CKD and is not on NSAIDs. 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 She also has s/s suggestive of PVD in legs. Discussed with patient diagnosis, prognosis and treatment options. Discussed with patient benefits of treatment including symptoms relief, functional improvement and preventing joint deformities or damage. Discussed with patient possible side effects of treatment and need for regular monitoring with labs. Patient expressed understanding.Plan:Raise MTX to 7 tabs weekly + Folate 1 mg daily.Continue Hydroxychloroquine 200 mgs twice daily with annual ophthalmology fup.Calcium 600 mgs twice daily and Vitamin D 1000 units daily.Labs for close intense monitoring on meds.Return to clinic 2-3 mosCorrona fup as neededTylenol prn pain for now [no nsaids as hx of ckd]. Related to Rheumatoid arthritis w/o rheumatoid factor, multiple sites Stable RA. She has s table CKD and is not on NSAIDs. CMP stable. 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 She also has s/s suggestive of PVD in legs. Discussed with patient diagnosis, prognosis and treatment options. Discussed with patient benefits of treatment including symptoms relief, functional improvement and preventing joint deformities or damage. Discussed with patient possible side effects of treatment and need for regular monitoring with labs. Patient expressed understanding.In view of breast cancer diagnosis in fall 2015 s/p surgery and xrt, taken off MTX 01/2016 and replaced with Hydroxychloroquine which she has responded too. Can resume MTX once she is post-op and if heme-onc is comfortable with having her back on MTX in setting of new diagnosis of breast cancer [strong family hx reported]. She will be off MTX for at least 4-6 months. Plan:Continue Hydroxychloroquine 200 mgs twice daily.Calcium 600 mgs twice daily and Vitamin D 1000 units daily.Return to clinic 7 weeks.Corrona today.DXA ordered [last 08/21] as on armidex now for breast cancer.Tylenol prn pain for now [no nsaids as hx of ckd]. Related to Rheumatoid arthritis w/o rheumatoid factor, multiple sites Story: 05/17/14 Related to PNEUM ONIA, ORGANISM NOS Overall stable RA. C VENICE 4. She has stable CKD and is not on NSAIDs. Labs due today but says will do it with her labs thru her oncologist in few weeks. Some weather related aches from OA but no synovitis seen.DXA done 06/2016 is normal despite being on arimidex. 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 She also has s/s suggestive of PVD in legs. Discussed with patient diagnosis, prognosis and treatment options. Discussed with patient benefits of treatment including symptoms relief, functional improvement and preventing joint deformities or damage. Discussed with patient possible side effects of treatment and need for regular monitoring with labs. Patient expressed understanding.Plan:Continue MTX 7 tabs weekly + Folate 1 mg daily.Continue Hydroxychloroquine 200 mgs twice daily with annual ophthalmology fup.Calcium 600 mgs twice daily and Vitamin D 1000 units daily.Labs for close intense monitoring on meds.Return to clinic 3 mosCorrona fup as neededTylenol prn pain for now [no nsaids as hx of ckd]. Related to Rheumatoid arthritis w/o rheumatoid factor, multiple sites Stable. Maintain pcp fup. No NSA IDs. Related to Chronic kidney disease, unspecified Educated patient on OA and conservative strategies like - weight loss, PT, exercise, local heat, local gels. 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 Related to OSTEOARTHROS NOS-UNSPEC Educated patient on OA and conservative strategies like - weight loss, PT, exercise, local heat, local gels. 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 She has C KD and is not on NSAIDs. CMP stable. 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 She also has s/s suggestive of PVD in legs. Discussed with patient diagnosis, prognosis and treatment options. Discussed with patient benefits of treatment including symptoms relief, functional improvement and preventing joint deformities or damage. Discussed with patient possible side effects of treatment and need for regular monitoring with labs. Patient expressed understanding.Plan:CBC, esr, crp, cmp todayMethotrexate 7 tabs po weekly [renally adjusted]Folate 1 mg dailyCalcium 600 mgs twice daily and Vitamin D 1000 units daily Return to clinic 12 weeks with labs inhouse at that time.Corrona todayTylenol prn pain for now [no nsaids as hx of ckd]. Related to Rheumatoid arthritis w/o rheumatoid factor, multiple sites Stable. Maintain pcp fup. No NSA IDs. Related to Chronic kidney disease, unspecified Clinically with rt w rist synovitis now. Some of her s/s may represent polymyalgia like symptoms but patent is not a very good historian. Differentials now are chronic inflammatory arthritis [ psoriatic arthritis pr rheumatoid arthritis] vs PMR. No GCA s/s. 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 Esr, crp is elevated but hand xrays are non erosive. Not clear what esr and crp was in 05/13 and thereafter and if esr/crp has been elevated since time of pneumonia in 05/23.Plan:Recheck esr, crp today.RT wrist and rt hand mri ordered.Recheck esr, crp in 4 weeks.Return to clinic 5 weeks for re-eval. Requested labs, shoulder xrays and neck xrays from pcp office.Tylenol prn pain for now [no nsaids as hx of ckd]. Related to Pain in unspecified joint Educated patient on OA and conservative strategies like - weight loss, PT, exercise, local heat, local gels. 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 ESR normal now and minimal crp elevation. Still has mild rt wrist synovitis and may benefit from a raise in MTX doses but she prefers to be watched on this dose over the next 2 months. 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 Plan:Methotrexate 6 tabs po weeklyFolate 1 mg dailyCalcium 600 mgs twice daily and Vitamin D 1000 units daily Labs in 6 weeks.Return to clinic 8 weeks.Corrona 02/20.Consider vectra next visit.Tylenol prn pain for now [no nsaids as hx of ckd]. Related to Rheumatoid arthritis, unspecified Story: shoulder, kne es, neck, l spine, hands Related to Unspecified osteoarthritis, unspecified site New breast cancer di agnosis and now on arimidex. Recommend fup DXA. 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 She has CKD and is not on NSAIDs. CMP stable. 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 She also has s/s suggestive of PVD in legs. Discussed with patient diagnosis, prognosis and treatment options. Discussed with patient benefits of treatment including symptoms relief, functional improvement and preventing joint deformities or damage. Discussed with patient possible side effects of treatment and need for regular monitoring with labs. Patient expressed understanding.Plan:CBC, esr, crp, cmp todayMethotrexate 7 tabs po weekly [renally adjusted]Folate 1 mg dailyCalcium 600 mgs twice daily and Vitamin D 1000 units daily Return to clinic 12 weeks with labs inhouse at that time.Corrona todayTylenol prn pain for now [no nsaids as hx of ckd]. Related to Rheumatoid arthritis w/o rheumatoid factor, multiple sites Active RA with CDAi 20. She is on Hydroxychloroquine at this time. She is keen on going back on MTX [taken off due to breast CA diagnosis in fall 2015] and says oncologist is okay with her being on MTX now. She has stable CKD and is not on NSAIDs. 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 She also has s/s suggestive of PVD in legs. Discussed with patient diagnosis, prognosis and treatment options. Discussed with patient benefits of treatment including symptoms relief, functional improvement and preventing joint deformities or damage. Discussed with patient possible side effects of treatment and need for regular monitoring with labs. Patient expressed understanding.Plan:Retsrat MTX 6 tabs weekly + Folate 1 mg daily.Continue Hydroxychloroquine 200 mgs twice daily with annual ophthalmology fup.Calcium 600 mgs twice daily and Vitamin D 1000 units daily.Says PCP will do labs soon and she will send me reports.Return to clinic 6 weeks with Mana and repeat basic 4 labs then for close intense monitoring and assess MTX response.Corrona fup as neededTylenol prn pain for now [no nsaids as hx of ckd]. Related to Rheumatoid arthritis w/o rheumatoid factor, multiple sites Stable. Maintain pcp fup. No NSA IDs. Related to Chronic kidney disease, unspecified Educated patient on OA and conservative strategies like - weight loss, PT, exercise, local heat, local gels. 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 XRay +. Defers PT. Says will restart Warm aqua therapy. 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 If abnormal labs indicate change in treatment, the patient will be called. If not, the labs will be discussed with patient at the next follow up visit. Patient is welcome to call at any time.-The medication cannot be used in and breast feeding or at times of infections. If there are plans for the medication has to be stopped about 3 months before trying to conceive.-During moderate-severe active infections of any kind, medication is usually held until the infection resolves. Please contact your PCP if you have infections, for treatment. -If you are having a major surgery, the medication has to be held 1-2 weeks before and after the surgery to reduce risk of infections. -Daily and/or heavy alcohol use is not recommended. -Live vaccines like shingles, yellow fever, measles etc are contraindicated while on treatment. A shingles vaccine can be taken 2-4 weeks before starting the medication.- Other routine vaccines recommended [influenza, Pneumovax]- Maintain good control on BP, lipids, diabetes with help of PCP to reduce cardiac risks- Smoking should be avoided- Patient to inform us of any malignancies or comorbidities-If you have life threatening or unexplained disabling symptoms and signs of any kind, please report to the ER- Patient advised to call for clarifications or questions. 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 If abnormal labs indicate change in treatment, the patient will be called. If not, the labs will be discussed with patient at the next follow up visit. Patient is welcome to call at any time.-The medication cannot be used in and breast feeding or at times of infections. If there are plans for the medication has to be stopped about 3 months before trying to conceive.-During moderate-severe active infections of any kind, medication is usually held until the infection resolves. Please contact your PCP if you have infections, for treatment. -If you are having a major surgery, the medication has to be held 1-2 weeks before and after the surgery to reduce risk of infections. -Daily and/or heavy alcohol use is not recommended. -Live vaccines like shingles, yellow fever, measles etc are contraindicated while on treatment. A shingles vaccine can be taken 2-4 weeks before starting the medication.- Other routine vaccines recommended [influenza, Pneumovax]- Maintain good control on BP, lipids, diabetes with help of PCP to reduce cardiac risks- Smoking should be avoided- Patient to inform us of any malignancies or comorbidities-If you have life threatening or unexplained disabling symptoms and signs of any kind, please report to the ER- Patient advised to call for clarifications or questions. Related to Other long-term (current) drug therapy Overall stable. XRay +. Defers PT. Says will restart Warm aqua therapy. Defers pain management. 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 Related to Cervical disc disorder, unsp, unspecified cervical region Overall stable. XRay +. Defers PT. Defers pain management. 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 Related to Obesity, unspecified Advised on healthy d iet and exercise to help with weight loss and joint pain. Related to Obesity, unspecified Stable and follow up with PCP. R elated to Essential (primary) hypertension Overall stable. XRay +. Defers PT. Defers pain management. 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 Related to Cervical disc disorder, unsp, unspecified cervical region Overall stable. XRay +. Defers PT. Says will restart Warm aqua therapy. Defers pain management. 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 Related to Obesity, unspecified Overall stable. XRay +. Defers PT. Defers pain management. 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 Related to Cervical disc disorder, unsp, unspecified cervical region Educated patient on OA and conservative strategies like - weight loss, PT, exercise, local heat, local gels. Related to Cervical disc disorder, unsp, unspecified cervical region Scheduled fpr lumpec mario and XRT soon. Following with heme-onc. Related to Malignant neoplasm of unspecified site of left female breast S/s suggest bilatera l lower extremity claudication. Says PCP has already done tests and suggested compression stockings and ASA for possible PVD. 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 XRay +. Defers PT. Defers pain management. 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 Related to Obesity, unspecified Discussed with freddie king the following: -Labs have to be done regularly q 1-3 months. If abnormal labs indicate change in treatment, the patient will be called. If not, the labs will be discussed with patient at the next follow up visit. Patient is welcome to call at any time.-The medication cannot be used in and breast feeding or at times of infections. If there are plans for the medication has to be stopped about 3 months before trying to conceive.-During moderate-severe active infections of any kind, medication is usually held until the infection resolves. Please contact your PCP if you have infections, for treatment. -If you are having a major surgery, the medication has to be held 1-2 weeks before and after the surgery to reduce risk of infections. -Daily and/or heavy alcohol use is not recommended. -Live vaccines like shingles, yellow fever, measles etc are contraindicated while on treatment. A shingles vaccine can be taken 2-4 weeks before starting the medication.- Other routine vaccines recommended [influenza, Pneumovax]- Maintain good control on BP, lipids, diabetes with help of PCP to reduce cardiac risks- Smoking should be avoided- Patient to inform us of any malignancies or comorbidities-If you have life threatening or unexplained disabling symptoms and signs of any kind, please report to the ER- Patient advised to call for clarifications or questions. 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 XRay +. Defers PT. Says will restart Warm aqua therapy. Related to LUMBOSACRAL SPONDYLOSIS Educated patient on OA and conservative strategies like - weight loss, PT, exercise, local heat, local gels. Related to Cervical disc disorder, unsp, unspecified cervical region Educated patient on OA and conservative strategies like - weight loss, PT, exercise, local heat, local gels. Related to Cervical disc disorder, unsp, unspecified cervical region Overall stable. XRay +. Defers PT. Defers pain management. 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
--- OUTSIDE RECORDS SUMMARY | 2024-05-16 16:50 | XMS_ITS | Continuity of Care Document ---
Author Organization [facility] Address [address] [place] [address] Phone Care Team Providers Care Band Tumbler Name Role Phone Hanh Thompson MD Unavailable [...] once a day prn only - Active lisinopril 20 mg-hydrochlorothiazi de 12.5 mg tablet take 1 tablet by oral route every day 1.00 tablet - Active diltiazem ER (XR/XT) 180 mg capsule,extended release 24 hr, controlled take 1 capsule by oral route every day 180 MG - Active levothyroxine 50 mcg tablet take 1 tablet by oral route every day 50 MCG - Active Vitamin D3 2,000 unit capsule take 1 tablet by oral route every day 1 tablet - Active aspirin 81 mg tablet,delayed release take 1 tablet by oral route every day 81 MG - Active anastrozole 1 mg tablet take 1 tablet by oral route every day 1 MG - Active AVASTIN (unknown strength) infuse 1.25mg by intravenous route every 8 weeks Not Available - Active Procedures Procedure Date PHONE E/M [...] VENIPUNCTURE BMI >=30 calcuate w/followup ROUTINE VENIPUNCTURE BMI >=30 calcuate w/followup ROUTINE VENIPUNCTURE ROUTINE VENIPUNCTURE BMI >=30 calcuate w/followup ROUTINE VENIPUNCTURE BMI >=30 calcuate w/followup ROUTINE VENIPUNCTURE DXA Bone Density, Axial with VFA ROUTINE VENIPUNCTURE MRI UPPER EXTREMITY W/O DYE BMI >=30 calcuate w/followup Chest X-Ray X-Ray Exam Of Ribs X-Ray Exam Of Lower Spine X-RAY EXAM OF HAND X-RAY EXAM OF HAND ROUTINE VENIPUNCTURE Prolonged Service, Office Advance Directives Directive Yes / No Effective Date File Name No Information Encounters Encounter Description Practice Location Reason(s) For Visit Diagnoses Date Provider Providers Copied on Encounter [facility], [address], [place], [place], [id number], [place] tel:[phone] MARK Antwon No Information 3 Jay Hanh. [address], [address], [place], [place], [address], [place]. tel:[phone] [facility], [address], [place], [place], [address], [place] tel:[phone] MARK Muñoz No Information 1 Jay Schafer. [address], [address], [place], [place], [address], [place]. tel:[phone] [facility], [address], [place], [place], [address], [place] tel:[phone] [facility] [place] No Information 1 Jay Schafer. [address], [address], [place], [place], [address], [place]. tel:[phone] PHONE E/M BY PHYS 21-30 MIN [facility], [address], [place], [place], [address], [place] tel:[phone] [facility] Rheumatoid Arthritis (chief complaint) Rheumatoid arthritis w/o rheumatoid factor, multiple sitesPolyosteoar thritis, unspecifiedSpond ylosis w/o myelopathy or radiculopathy, lumbar regionBody mass index (BMI) 38.0-38.9, adultOther penitentiary (current) drug therapy 1 Jay Schafer. [address], [address], [place], [place], [id number], [place]. tel:[phone] Office/outpa tient Visit, Est [facility], [address], [place], [place], [address], [place] tel:[phone] [facility] Rheumatoid Arthritis (chief complaint) Rheumatoid arthritis w/o rheumatoid factor, multiple sitesPolyosteoar thritis, unspecifiedSpond ylosis w/o myelopathy or radiculopathy, lumbar regionBody mass index (BMI) 38.0-38.9, adultOther terminal supervisor (current) drug therapy 0 Jay Hanh. [address], [address], [place], [place], [address], [place]. tel:[phone] Referring Provider: Marzena Moss, [address], [place], [address] . Office/outpa tient Visit, [facility], [address], [place], [place], [address], [place] tel:[phone] [facility] Rheumatoid Arthritis (chief complaint) Rheumatoid arthritis w/o rheumatoid factor, multiple sitesPolyosteoar thritis, unspecifiedSpond ylosis w/o myelopathy or radiculopathy, lumbar regionBody mass index (BMI) 38.0-38.9, adultOther penitentiary (current) drug therapy 0 Jay Hanh. [address], [address], [place], [place], [address], [place]. tel:[phone] Referring Provider: Marzena Moss, [address], [place], [address] . Office/outpa tient Visit, [facility], [address], [place], [place], [address], [place] tel:[phone] [facility] Rheumatoid Arthritis (chief complaint) Rheumatoid arthritis w/o rheumatoid factor, multiple sitesPolyosteoar thritis, unspecifiedSpond ylosis w/o myelopathy or radiculopathy, lumbar regionBody mass index (BMI) 38.0-38.9, adultOther penitentiary (current) drug therapy 0 Terry Arce. [address], [address], [place], [address], [place]. tel:[phone] Referring Provider: [address], [place], [address] . Office/outpa tient Visit, [facility], [address], [place], [place], [address], [place] tel:[phone] [facility] Rheumatoid Arthritis (chief complaint) Rheumatoid arthritis w/o rheumatoid factor, multiple sitesPolyosteoar thritis, unspecifiedSpond ylosis w/o myelopathy or radiculopathy, lumbar regionBody mass index (BMI) 38.0-38.9, adultOther penitentiary (current) drug therapy Apr- 9 Jay Hanh. [address], [address], [place], [place], [address], [place]. tel:[phone] Referring Provider: Marzena Moss, [address], [place], [address] . Office/outpa tient Visit, [facility], [address], [place], [place], [address], [place] tel:[phone] [facility] Rheumatoid Arthritis (chief complaint) Body mass index (BMI) 38.0-38.9, adultRheumatoid arthritis w/o rheumatoid factor, multiple sitesPolyosteoar thritis, unspecifiedSpond ylosis w/o myelopathy or radiculopathy, lumbar regionOther penitentiary (current) drug therapy Jan- 9 Jay Hanh. [address], [address], [place], [place], [address], [place]. tel:[phone] Referring Provider: Marzena Moss, [address], [place], [address] . Office/outpa tient Visit, Est [facility], [address], [place], [place], [address], [place] tel:[phone] [facility] Rheumatoid Arthritis (chief complaint) Rheumatoid arthritis w/o rheumatoid factor, multiple sitesPolyosteoar thritis, unspecifiedSpond ylosis w/o myelopathy or radiculopathy, lumbar regionOther penitentiary (current) drug therapy 0 9 [facility]. [address], [address], [place], [place], [address], [place]. tel:[phone] Referring Provider: Marzena Moss, [address], [place], [address] . Office/outpa tient Visit, Est [facility], [address], [place], [place], [address], [place] tel:[phone] [facility] Rheumatoid Arthritis (chief complaint) Rheumatoid arthritis w/o rheumatoid factor, multiple sitesOther terminal supervisor (current) drug therapyPolyosteo arthritis, unspecifiedSpond ylosis w/o myelopathy or radiculopathy, lumbar region 9 [facility]. [address], [address], [place], [place], [address], [place]. tel:[phone] Referring Provider: Marzena Moss, [address], [place], [address] . Office/outpa tient Visit, Est [facility], [address], [place], [place], [address], [place] tel:[phone] [facility] Rheumatoid Arthritis (chief complaint) Rheumatoid arthritis w/o rheumatoid factor, multiple sitesPolyosteoar thritis, unspecifiedSpond ylosis w/o myelopathy or radiculopathy, lumbar regionOther terminal supervisor (current) drug therapy 8 Terry Arce. [address], [address], [place], [address], [place]. tel:[phone] Referring Provider: aMrzena Moss, [address], [place], [address] . Office/outpa tient Visit, Est [facility], [address], [place], [place], [address], [place] tel:[phone] MARK Maryneal Rheumatoid Arthritis (chief complaint) Rheumatoid arthritis w/o rheumatoid factor, multiple sitesPolyosteoar thritis, unspecifiedSpond ylosis w/o myelopathy or radiculopathy, lumbar regionOther penitentiary (current) drug therapy 8 Jaymalick Schafer. [address], [address], [place], [place], [address], [place]. tel:[phone] Referring Provider: Marzena Moss, [address], [place], [address] . [facility], [address], [place], [place], [id number], [place] tel:[phone] MARK Rodríguezndale Rheumatoid arthritis w/o rheumatoid factor, multiple sites 8 [facility] . . [facility], [address], [place], [place], [address], [place] tel:[phone] [facility] Rheumatoid arthritis w/o rheumatoid factor, multiple sitesOther penitentiary (current) drug therapyPolyosteo arthritis, unspecifiedSpond ylosis w/o myelopathy or radiculopathy, lumbar region 8 Jay Swati. [address], [address], [place], [place], [address], [place]. tel:[phone] [facility], [address], [place], [place], [address], [place] tel:[phone] MARK Reyesale Rheumatoid arthritis w/o rheumatoid factor, multiple sites 7 [facility] . . [facility], [address], [place], [place], [address], [place] tel:[phone] [facility] Polyosteoarthrit is, unspecifiedCervi joshua disc disorder, unsp, unspecified cervical regionSpondylosi s w/o myelopathy or radiculopathy, lumbar regionOther penitentiary (current) drug therapyRheumatoi d arthritis w/o rheumatoid factor, multiple sites [facility]. [address], [address], [place], [place], [address], [place]. tel:[phone] [facility], [address], [place], [place], [address], [place] tel:[phone] [facility] Cervical disc disorder, unsp, unspecified cervical regionSpondylosi s w/o myelopathy or radiculopathy, lumbar regionRheumatoid arthritis w/o rheumatoid factor, multiple sitesPolyosteoar thritis, unspecifiedOther terminal supervisor (current) drug therapy [facility]. [address], [address], [place], [place], [address], [place]. tel:[phone] [facility], [address], [place], [place], [address], [place] tel:[phone] [facility] Polyosteoarthrit is, unspecifiedObesi ty, unspecifiedRheum atoid arthritis w/o rheumatoid factor, multiple sitesSpondylosis w/o myelopathy or radiculopathy, lumbar regionCervical disc disorder, unsp, unspecified cervical region [facility]. [address], [address], [place], [place], [address], [place]. tel:[phone] [facility], [address], [place], [place], [address], [place] tel:[phone] [facility] Rheumatoid arthritis w/o rheumatoid factor, multiple sitesOth disrd of bone density and structure, left forearmOther terminal supervisor (current) drug therapyCervical disc disorder, unsp, unspecified cervical regionSpondylosi s w/o myelopathy or radiculopathy, lumbar regionOth disrd of bone density and structure, multiple sitesPolyosteoar thritis, unspecified Fe ZProvider Conversion . . [facility], [address], [place], [place], [address], [place] tel:[phone] [facility] Other primary ovarian failure [facility]version . . [facility], [address], [place], [place], [address], [place] tel:[phone] [facility] Rheumatoid arthritis w/o rheumatoid factor, multiple sitesSpondylosis w/o myelopathy or radiculopathy, lumbar regionPolyosteoa rthritis, unspecifiedCervi joshua disc disorder, unsp, unspecified cervical regionOther terminal supervisor (current) drug therapy Jay Schafer. [address], [place], [place], [address], [place]. tel:[phone] [facility], [address], [place], [place], [address], [place] tel:[phone] [facility] Other penitentiary (current) drug therapyRheumatoi d arthritis w/o rheumatoid factor, multiple sitesLong term (current) use of aromatase inhibitorsPolyos teoarthritis, unspecifiedSpond ylosis w/o myelopathy or radiculopathy, lumbar regionCervical disc disorder, unsp, unspecified cervical region Jaymalick Schafer. [address], [address], [place], [place], [address], [place]. tel:[phone] [facility], [address], [place], [place], [address], [place] tel:[phone] [facility] Rheumatoid arthritis w/o rheumatoid factor, multiple sitesOther penitentiary (current) drug therapyPolyosteo arthritis, unspecifiedChron ic kidney disease, unspecifiedObesi ty, unspecifiedMalig nant neoplasm of unspecified site of left female breast [facility] Hanh. [address], [address], [place], [place], [address], [place]. tel:[phone] [facility], [address], [place], [place], [address], [place] tel:[phone] [facility] Cervical disc disorder, unsp, unspecified cervical regionObesity, unspecifiedPolyo steoarthritis, unspecifiedSpond ylosis w/o myelopathy or radiculopathy, lumbar regionRheumatoid arthritis w/o rheumatoid factor, multiple sitesOther terminal supervisor (current) drug therapy John-0 3-201 6 Jay Hanh. [address], [address], [place], [place], [address], [place]. tel:[phone] [facility], [address], [place], [place], [address], [place] tel:[phone] [facility] Rheumatoid arthritis w/o rheumatoid factor, multiple sitesSpondylosis w/o myelopathy or radiculopathy, lumbar regionOther terminal supervisor (current) drug therapyPolyosteo arthritis, unspecifiedChron ic kidney disease, unspecified Jul-0 1-201 6 Jay Hanh. [address], [address], [place], [place], [address], [place]. tel:[phone] [facility], [address], [place], [place], [address], [place] tel:[phone] [facility] Rheumatoid arthritis w/o rheumatoid factor, multiple sites 4-201 5 [facility] [employer] . . [facility], [address], [place], [place], [address], [place] tel:[phone] [facility] Chronic kidney disease, unspecifiedOther penitentiary (current) drug therapyEssential (primary) hypertensionUnsp ecified osteoarthritis, unspecified siteObesity, unspecifiedRheum atoid arthritis w/o rheumatoid factor, multiple sites 0 1-201 5 Jay Hanh. [address], [place], [place], [address], [place]. tel:[phone] [facility], [address], [place], [place], [address], [place] tel:[phone] [facility] OSTEOARTHROS NOS-UNSPECPERIPH VASCULAR DIS NOSRHEUMATOID ARTHRITISLUMBOSA CRAL SPONDYLOSISChron ic kidney disease, unspecifiedOther terminal supervisor (current) drug therapy Jay Hanh. [address], [address], [place], [place], [address], [place]. tel:[phone] [facility], [address], [place], [place], [address], [place] tel:[phone] [facility] Rheumatoid arthritis, unspecified ZProvider Conversion . . [facility], [address], [place], [place], [address], [place] tel:[phone] [facility] CERVICAL DISC DEGENLUMBOSACRAL SPONDYLOSISRHEUM ATOID ARTHRITISOSTEOAR THROS NOS-UNSPEC ZProvider Conversion . . [facility], [address], [place], [place], [address], [place] tel:[phone] [facility] Spondylosis w/o myelopathy or radiculopathy, lumbar regionAnemia, unspecifiedUnspe cified osteoarthritis, unspecified siteCervical disc disorder, unsp, unspecified cervical regionRheumatoid arthritis, unspecifiedOther terminal supervisor (current) drug therapyObesity, unspecified Jay Hanh. [address], [place], [place], [address], [place]. tel:[phone] [facility], [address], [place], [place], [address], [place] tel:[phone] [facility] OBESITY NOSLONG-TERM USE MEDS NECRHEUMATOID ARTHRITIS 5 Jay Hanh. [address], [address], [place], [place], [address], [place]. tel:[phone] [facility], [address], [place], [place], [address], [place] tel:[phone] [facility] MALAISE AND FATIGUE NECOSTEOARTHROS NOS-UNSPEC ZProvider Conversion . . [facility], [address], [place], [place], [address], [place] tel:[phone] [facility] OSTEOARTHROS NOS-UNSPECOVARIA N FAILURE NECCERVICAL DISC DEGENJOINT PAIN-MULT JTSOTHER PSORIASIS ZProvider Conversion . . [facility], [address], [place], [place], [address], [place] tel:[phone] [facility] No Information [facility] Conversion . . [facility], [address], [place], [place], [address], [place] tel:[phone] [facility] Pain in unspecified jointUnspecified osteoarthritis, unspecified sitePain in unspecified handSpondylosis w/o myelopathy or radiculopathy, lumbar regionCervical disc disorder, unsp, unspecified cervical regionPneumonia, unspecified organismElevated erythrocyte sedimentation ratePsoriasis, unspecifiedObesi ty, unspecified Jay Schafer. [address], [place], [place], [address], [place]. tel:[phone] [facility], [address], [place], [place], [address], [place] tel:[phone] A[facility] Maryneal CHEST PAIN NOSPNEUMONIA, ORGANISM NOSJOINT PAIN-MULT JTS Fe ZProvider Conversion . . [facility], [address], [place], [place], [address], [place] tel:[phone] AARA Maryneal CHEST PAIN NOSJOINT PAIN-MULT JTSMALAISE AND FATIGUE NECMYALGIA AND MYOSITIS NOS 5 [facility] Conversion . . Prolonged Service, Office [facility], [address], [place], [place], [address], [place] tel:[phone] [facility] Maryneal Pain in unspecified jointPsoriasis, unspecifiedMyalg iaOther fatiguePneumonia , unspecified organismPleurody niaOther primary ovarian failureLow back pain 5 Jay Swati. [address], [place], [place], [address], [place]. tel:[phone] Family History Family Member Type Diagnosis Age [...] Sisters Payers Payer name Insurance type Covered green party ID Authoriza tion(s) Medicare [id number] [employer] [place] PPO [id number] Social History Type Description Quantity Date Captured [...] Future Order: Lab Order Sed Rate (Automated) (9010), Collected on: , Sent on: Sent Future Order: Lab Order CBC (Aut omated) (3001), Sent on: Sent Future Order: Lab Order CMP (1001), Sent on: Sent Future Order: Lab Order C-Reacti ve Protein (1009), Sent on: Sent Future Order: Lab Order Sed Rate (Automated) (3586), Sent on: Sent Future Order: Lab Order CBC (Aut omated) (3001), Ordered on: Ordered Future Order: Lab Order CMP (1001), Order ed on: Ordered Future Order: Lab Order C-Reacti ve Protein (1009), Ordered on: Ordered Future Order: Lab Order Sed Rate (Automated) (8185), Ordered on: Ordered Future Order: Lab Order [...] cirrhosis and the current recommendation from the [employer] is to get surveillance liver biopsies every several years. It was emphasized that Methotrexate can cause deformities and greatly increase the risk of spontaneous abortions, and under no circumstances is the patient to become or conceive while taking Methotrexate, and would need to be methotrexate free for a period of three months prior to conception. Related to Other penitentiary (current) drug therapy Overall stable RA . [...] cirrhosis and the current recommendation from the [place] is to get surveillance liver biopsies every several years. It was emphasized that Methotrexate can cause deformities and greatly increase the risk of spontaneous abortions, and under no circumstances is the patient to become or conceive while taking Methotrexate, and would need to be methotrexate free for a period of three months prior to conception. 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 [...] cirrhosis and the current recommendation from the [place] is to get surveillance liver biopsies every several years. It was emphasized that Methotrexate can cause deformities and greatly increase the risk of spontaneous abortions, and under no circumstances is the patient to become or conceive while taking Methotrexate, and would need to be methotrexate free for a period of three months prior to conception. Related to Other penitentiary (current) drug therapy -2019 Overall stable RA [...] cirrhosis and the current recommendation from the [place] [employer] is to get surveillance liver biopsies every several years. It was emphasized that Methotrexate can cause deformities and greatly increase the risk of spontaneous abortions, and under no circumstances is the patient to become or conceive while taking Methotrexate, and would need to be methotrexate free for a period of three months prior to conception. Related to Other penitentiary (current) drug therapy Overall stable RA on [...] daily.Return to clinic 4 mos [lives in [facility]]Corrona fup next visit Related to Rheumatoid arthritis [...] cirrhosis and the current recommendation from the [place] is to get surveillance liver biopsies every several years. It was emphasized that Methotrexate can cause deformities and greatly increase the risk of spontaneous abortions, and under no circumstances is the patient to become or conceive while taking Methotrexate, and would need to be methotrexate free for a period of three months prior to conception. Related to Other terminal supervisor (current) drug therapy Wt loss advised Related [...] cirrhosis and the current recommendation from the [place] is to get surveillance liver biopsies every several years. It was emphasized that Methotrexate can cause deformities and greatly increase the risk of spontaneous abortions, and under no circumstances is the patient to become or conceive while taking Methotrexate, and would need to be methotrexate free for a period of three months prior to conception. Related to Other penitentiary (current) drug therapy Dietary management e ducation, [...] cirrhosis and the current recommendation from the [place] is to get surveillance liver biopsies every several years. It was emphasized that Methotrexate can cause deformities and greatly increase the risk of spontaneous abortions, and under no circumstances is the patient to become or conceive while taking Methotrexate, and would need to be methotrexate free for a period of three months prior to conception. Related to Other penitentiary (current) drug therapy Overall stable RA. C [...] cirrhosis and the current recommendation from the [place] [employer] is to get surveillance liver [...] the need for regular monitoring by an certified lactation counselor. 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 C [...] cirrhosis and the current recommendation from the [place] [employer] is to get surveillance liver [...] the need for regular monitoring by an certified lactation counselor. Related to Other penitentiary (current) drug therapy Overall stable RA. C [...] cirrhosis and the current recommendation from the [place] [employer] is to get surveillance liver [...] the need for regular monitoring by an certified lactation counselor. Related to Other penitentiary (current) drug therapy Educated patient on OA [...] on arimidex. Recommend fup DXA. Related to terminal operations supervisor (current) use of aromatase inhibitors Stable RA [...] for clarifications or questions. Related to Other terminal supervisor (current) drug therapy Discussed with freddie king [...] for clarifications or questions. Related to Other [facility] (current) drug therapy Overall stable. XRay +. [...] for clarifications or questions. Related to Other terminal supervisor (current) drug therapy Overall stable. XRay +. [...]
== END 2024-05-10 03:30 | disposition short-term general hospital (02) ==
PROVIDERS: Emergency Provider Emergency Medicine; PCP Internal Medicine
DX: N17.9 Acute kidney failure, unspecified (principal); K92.2 Gastrointestinal hemorrhage, unspecified; D62 Acute posthemorrhagic anemia; N39.0 Urinary tract infection, site not specified; E86.0 Dehydration; R94.31 Abnormal electrocardiogram [ECG] [EKG]; R91.8 Other nonspecific abnormal finding of lung field; I10 Essential (primary) hypertension; E03.9 Hypothyroidism, unspecified; Z79.82 Long term (current) use of aspirin; Z79.811 Long term (current) use of aromatase inhibitors
CPT/HCPCS: 36415; 71045; 74176; 80053; 81001; 82272; 83605; 83690; 83735; 84484; 85025; 85055; 85610; 85730; 86850; 86900; 86901; 87040; 87077; 87086; 87088; 87186; 93005; 96361; 96365; 96375; 99285; J0696; J2470; J7030

== ENCOUNTER 2024-05-21 15:19 | Outpatient (CLI) | payer MEDICARE, SELFPAY ==
--- NOTE | ~2024-05-21 | XR_ITS ---
CHEST RADIOGRAPH, PA AND LATERAL CLINICAL HISTORY: SOB and cough . COMPARISON: 05/09/2024 TECHNIQUE: PA and lateral views of the chest. FINDINGS The cardiomediastinal silhouette is unremarkable. Redemonstration of a cavitary right lower lobe nodule, better evaluated on CT examination dated 025. Platelike atelectasis within the left mid to lower lung field, an interval change. The remainder of the lungs are clear. Multiple surgical clips within the left axilla. IMPRESSION: Redemonstration of a cavitary right lower lobe nodule, better evaluated on CT examination performed 1 2 days earlier. Platelike atelectasis within the left mid to lower lung field, an interval change. Reviewed, dictated and finalized at location A. ERSITY ADMINISTRATIVE ASSISTANT IMPRESSION: Redemonstration of a cavitary right lower lobe nodule, better evaluated on CT e xamination performed 12 days earlier. Platelike atelectasis within the left mid to lower lung field, an interval [email or web address].
[2024-05-21 15:40] LABS: Hematocrit 28.7 % (35.0-42.0); Mean Corpuscular HGB Conc 31.4 g/dL (32-36); Mean Corpuscular Hemoglobin 30.3 pg (27.0-31.0); Mean Corpuscular Volume 96.6 fL (78.0-102.0); Mean Platelet Volume 12.8 fl (9.2-11.8); Platelet Count Result 232 K/mm3 (150-420); Red Blood Count 2.97 M/mm3 (4.20-5.40); Red Cell Distribution Width 15.4 % (11.6-14.4); White Blood Count 11.2 K/mm3 (4.8-10.8)
--- NOTE | 2024-05-21 15:40 | ECG_ITS ---
Test Date: 2024-05-21 15:55:07 Measurements Intervals [place] Rate: 82 P: 73 GA: 160 QRS: 55 QRSD: 97 T: 38 QT: 392 QTc: 458 Interpretive Statements SINUS RHYTHM WITH FREQUENT VENTRICULAR PREMATURE COMPLEXES MINIMAL ST DEPRESSION [0.025+ mV ST DEPRESSION] ABNORMAL RHYTHM ECG Compared to ECG 05/09/2024 19:19:06 ST (T wave) deviation now present T-wave abnormality no longer present Electronically Signed On 05-21-2024 21:45:47 [employer] by Chloe Shay M.D.
[2024-05-21 16:30] LABS: Alanine Aminotransferase 35 U/L (14-59); Albumin Level 3.5 g/dL (3.4-5.0); Alkaline Phosphatase 101 U/L (46-116); Anion Gap 12 mmol/L (4-12); Aspartate Amino Transferase 22 U/L (15-37); Bilirubin,Total 0.5 mg/dL (0.00-1.00); Blood Urea Nitrogen 21 mg/dL (7-18); Calcium 8.8 mg/dL (8.5-10.1); Carbon Dioxide 26 mmol/L (21-32); Chloride 105 mmol/L (98-108); Estimated Glomerular Filt Rate 32; Glucose 97 mg/dL (70-99); Magnesium 1.4 mg/dL (1.8-2.4); NT Pro B Type Natriuretic Pept 1352 pg/mL (0-450); Osmolality Calculated 299 mOsm/kg (285-295); Potassium 3.6 mmol/L (3.5-5.1); Sodium 143 mmol/L (136-145); Total Protein 6.1 g/dL (6.4-8.2)
[2024-05-22 09:36] LABS: Ferritin 76 ng/mL (8-252); Iron 27 ug/dL (50-170); Percent Iron Saturation 9 % (12-57)
== END 2024-05-21 15:20 | disposition home or self-care (01) ==
LOC: CHSLAB 15:25
PROVIDERS: PCP Internal Medicine; Visit Provider Internal Medicine
DX: K92.2 Gastrointestinal hemorrhage, unspecified (principal); D64.9 Anemia, unspecified; I49.9 Cardiac arrhythmia, unspecified; R06.00 Dyspnea, unspecified; R94.31 Abnormal electrocardiogram [ECG] [EKG]; R91.8 Other nonspecific abnormal finding of lung field
CPT/HCPCS: 36415; 71046; 80053; 82728; 83540; 83550; 83735; 83880; 85027; 93005

== ENCOUNTER 2024-05-29 09:24 | Outpatient (CLI) | payer MEDICARE, SELFPAY ==
[2024-05-29 09:38] LABS: Basophils Absolute Auto 0.05 K/mm3 (0.00-0.10); Basophils Percent Auto 0.5 % (0.0-1.0); Eosinophils Absolute Auto 0.37 K/mm3 (0.02-0.50); Eosinophils Percent Auto 3.9 % (1.0-6.0); Hematocrit 30.7 % (35.0-42.0); Hemoglobin 9.3 g/dL (11.7-13.8); Immature Granulocyte Absolute 0.04 K/mm3 (0.00-0.00); Immature Granulocyte Percent A 0.4 % (0.0-0.0); Lymphocytes Absolute Auto 2.31 K/mm3 (1.10-4.50); Lymphocytes Percent Auto 24.2 % (18.0-42.0); Mean Corpuscular HGB Conc 30.3 g/dL (32-36); Mean Corpuscular Hemoglobin 29.2 pg (27.0-31.0); Mean Corpuscular Volume 96.5 fL (78.0-102.0); Mean Platelet Volume 12.1 fl (9.2-11.8); Monocytes Absolute Auto 0.66 K/mm3 (0.10-0.90); Monocytes Percent Auto 6.9 % (2.0-11.0); Neutrophils Absolute Auto 6.11 K/mm3 (1.70-7.20); Neutrophils Percent Auto 64.1 % (50.0-70.0); Platelet Count Result 225 K/mm3 (150-420); Red Blood Count 3.18 M/mm3 (4.20-5.40); White Blood Count 9.5 K/mm3 (4.8-10.8)
[2024-05-29 10:54] LABS: Alanine Aminotransferase 28 U/L (14-59); Albumin Level 3.5 g/dL (3.4-5.0); Alkaline Phosphatase 97 U/L (46-116); Anion Gap 10 mmol/L (4-12); Aspartate Amino Transferase 25 U/L (15-37); Bilirubin,Total 0.5 mg/dL (0.00-1.00); Blood Urea Nitrogen 23 mg/dL (7-18); CRP 0.6 mg/dL (0.0-0.9); Calcium 9.3 mg/dL (8.5-10.1); Carbon Dioxide 27 mmol/L (21-32); Chloride 106 mmol/L (98-108); Estimated Glomerular Filt Rate 32; Glucose 108 mg/dL (70-99); Magnesium 1.9 mg/dL (1.8-2.4); NT Pro B Type Natriuretic Pept 1131 pg/mL (0-450); Osmolality Calculated 300 mOsm/kg (285-295); Potassium 4.6 mmol/L (3.5-5.1); Sodium 143 mmol/L (136-145); Total Protein 6.2 g/dL (6.4-8.2)
--- OUTSIDE RECORDS SUMMARY | 2024-05-31 16:51 | XMS_ITS | Continuity of Care Document ---
Author Organization [facility] Address [address] [place] [address] Phone Care Team Providers Care Wilton Weaver Name Role Phone Hanh Thompson MD Unavailable [...] Rheumatolo gy, [address], [place], [place], [id number], [place] tel:[phone] MARK Antwon No Information 3 Jay Hanh. [address], [address], [place], [place], [address], [place]. tel:[phone] [facility], [address], [place], [place], [address], [place] tel:[phone] MARK Muñoz No Information 1 Jay Schafer. [address], [address], [place], [place], [address], [place]. tel:[phone] [facility], [address], [place], [place], [address], [place] tel:[phone] CANDYPati [place] No Information 1 Jay Hanh. [address], [address], [place], [place], [address], [place]. tel:[phone] PHONE E/M BY PHYS 21-30 MIN [facility], [address], [place], [place], [address], [place] tel:[phone] [facility] Rheumatoid Arthritis (chief complaint) Rheumatoid arthritis w/o rheumatoid factor, multiple sitesPolyosteoar thritis, unspecifiedSpond ylosis w/o myelopathy or radiculopathy, lumbar regionBody mass index (BMI) 38.0-38.9, adultOther long term care pharmacist (current) drug therapy 1 Jay Hanh. [address], [address], [place], [place], [id number], [place]. tel:[phone] Office/outpa tient Visit, [facility], [address], [place], [place], [address], [place] tel:[phone] [facility] Rheumatoid Arthritis (chief complaint) Rheumatoid arthritis w/o rheumatoid factor, multiple sitesPolyosteoar thritis, unspecifiedSpond ylosis w/o myelopathy or radiculopathy, lumbar regionBody mass index (BMI) 38.0-38.9, adultOther group home (current) drug therapy 0 Jay Hanh. [address], [address], [place], [place], [address], [place]. tel:[phone] Referring Provider: Marzena Moss, [address], [place], [address] . Office/outpa tient Visit, [facility], [address], [place], [place], [address], [place] tel:[phone] [facility] Rheumatoid Arthritis (chief complaint) Rheumatoid arthritis w/o rheumatoid factor, multiple sitesPolyosteoar thritis, unspecifiedSpond ylosis w/o myelopathy or radiculopathy, lumbar regionBody mass index (BMI) 38.0-38.9, adultOther group home (current) drug therapy 0 Jay Hanh. [address], [address], [place], [place], [address], [place]. tel:[phone] Referring Provider: Marzena Moss, [address], [place], [address] . Office/outpa tient Visit, [facility], [address], [place], [place], [address], [place] tel:[phone] [facility] Rheumatoid Arthritis (chief complaint) Rheumatoid arthritis w/o rheumatoid factor, multiple sitesPolyosteoar thritis, unspecifiedSpond ylosis w/o myelopathy or radiculopathy, lumbar regionBody mass index (BMI) 38.0-38.9, adultOther group home (current) drug therapy 0 Terry Arce. [address], [address], [place], [address], [place]. tel:[phone] Referring Provider: [address], [place], [address] . Office/outpa tient Visit, [facility], [address], [place], [place], [id number], [place] tel:[phone] [facility] Rheumatoid Arthritis (chief complaint) Rheumatoid arthritis w/o rheumatoid factor, multiple sitesPolyosteoar thritis, unspecifiedSpond ylosis w/o myelopathy or radiculopathy, lumbar regionBody mass index (BMI) 38.0-38.9, adultOther group home (current) drug therapy Apr- 9 Jay Hanh. [address], [address], [place], [place], [address], [place]. tel:[phone] Referring Provider: Marzena Moss, [address], [place], [address] . Office/outpa tient Visit, [facility], [address], [place], [place], [address], [place] tel:[phone] [facility] Rheumatoid Arthritis (chief complaint) Body mass index (BMI) 38.0-38.9, adultRheumatoid arthritis w/o rheumatoid factor, multiple sitesPolyosteoar thritis, unspecifiedSpond ylosis w/o myelopathy or radiculopathy, lumbar regionOther long term care pharmacist (current) drug therapy Jan- 9 Jay Hanh. [address], [address], [place], [place], [address], [place]. tel:[phone] Referring Provider: Marzena Moss, [address], [place], [address] . Office/outpa tient Visit, [facility], [address], [place], [place], [address], [place] tel:[phone] [facility] Rheumatoid Arthritis (chief complaint) Rheumatoid arthritis w/o rheumatoid factor, multiple sitesPolyosteoar thritis, unspecifiedSpond ylosis w/o myelopathy or radiculopathy, lumbar regionOther group home (current) drug therapy 0 9 [facility]. [address], [address], [place], [place], [address], [place]. tel:[phone] Referring Provider: Marzena Moss, [address], [place], [address] . Office/outpa tient Visit, [facility], [address], [place], [place], [address], [place] tel:[phone] [facility] Rheumatoid Arthritis (chief complaint) Rheumatoid arthritis w/o rheumatoid factor, multiple sitesOther group home (current) drug therapyPolyosteo arthritis, unspecifiedSpond ylosis w/o myelopathy or radiculopathy, lumbar region 9 [facility]. [address], [address], [place], [place], [address], [place]. tel:[phone] Referring Provider: Marzena Moss, [address], [place], [address] . Office/outpa tient Visit, [facility], [address], [place], [place], [address], [place] tel:[phone] [facility] Rheumatoid Arthritis (chief complaint) Rheumatoid arthritis w/o rheumatoid factor, multiple sitesPolyosteoar thritis, unspecifiedSpond ylosis w/o myelopathy or radiculopathy, lumbar regionOther group home (current) drug therapy 8 Terry Arce. [address], [address], [place], [address], [place]. tel:[phone] Referring Provider: Marzena Moss, [address], [place], [address] . Office/outpa tient Visit, [facility], [address], [place], [place], [address], [place] tel:[phone] MARK Closter Rheumatoid Arthritis (chief complaint) Rheumatoid arthritis w/o rheumatoid factor, multiple sitesPolyosteoar thritis, unspecifiedSpond ylosis w/o myelopathy or radiculopathy, lumbar regionOther group home (current) drug therapy 8 Jaymalick Schafer. [address], [address], [place], [place], [address], [place]. tel:[phone] Referring Provider: Marzena Moss, [address], [place], [address] . [facility], [address], [place], [place], [address], [place] tel:[phone] MARK Rodríguezndale Rheumatoid arthritis w/o rheumatoid factor, multiple sites 8 [facility] . . [facility], [address], [place], [place], [address], [place] tel:[phone] [facility] Rheumatoid arthritis w/o rheumatoid factor, multiple sitesOther long term care pharmacist (current) drug therapyPolyosteo arthritis, unspecifiedSpond ylosis w/o myelopathy or radiculopathy, lumbar region 8 Jay Swati. [address], [address], [place], [place], [address], [place]. tel:[phone] [facility], [address], [place], [place], [address], [place] tel:[phone] MARK Reyesale Rheumatoid arthritis w/o rheumatoid factor, multiple sites 7 [facility] . . [facility], [address], [place], [place], [address], [place] tel:[phone] [facility] Polyosteoarthrit is, unspecifiedCervi joshua disc disorder, unsp, unspecified cervical regionSpondylosi s w/o myelopathy or radiculopathy, lumbar regionOther group home (current) drug therapyRheumatoi d arthritis w/o rheumatoid factor, multiple sites [facility]. [address], [address], [place], [place], [address], [place]. tel:[phone] [facility], [address], [place], [place], [address], [place] tel:[phone] [facility] Cervical disc disorder, unsp, unspecified cervical regionSpondylosi s w/o myelopathy or radiculopathy, lumbar regionRheumatoid arthritis w/o rheumatoid factor, multiple sitesPolyosteoar thritis, unspecifiedOther group home (current) drug therapy [facility]. [address], [address], [place], [place], [address], [place]. tel:[phone] [facility], [address], [place], [place], [address], [place] tel:[phone] [facility] Polyosteoarthrit is, unspecifiedObesi ty, unspecifiedRheum atoid arthritis w/o rheumatoid factor, multiple sitesSpondylosis w/o myelopathy or radiculopathy, lumbar regionCervical disc disorder, unsp, unspecified cervical region [facility]. [address], [address], [place], [place], [address], [place]. tel:[phone] [facility], [address], [place], [place], [address], [place] tel:[phone] [facility] Rheumatoid arthritis w/o rheumatoid factor, multiple sitesOth disrd of bone density and structure, left forearmOther long term care pharmacist (current) drug therapyCervical disc disorder, unsp, unspecified cervical regionSpondylosi s w/o myelopathy or radiculopathy, lumbar regionOth disrd of bone density and structure, multiple sitesPolyosteoar thritis, unspecified Fe ZProvider Conversion . . [facility], [address], [place], [place], [address], [place] tel:[phone] [facility] Other primary ovarian failure [facility] Conversion . . [facility], [address], [place], [place], [address], [place] tel:[phone] [facility] Rheumatoid arthritis w/o rheumatoid factor, multiple sitesSpondylosis w/o myelopathy or radiculopathy, lumbar regionPolyosteoa rthritis, unspecifiedCervi joshua disc disorder, unsp, unspecified cervical regionOther long term care pharmacist (current) drug therapy Jay Schafer. [address], [address], [place], [place], [address], [place]. tel:[phone] [facility], [address], [place], [place], [address], [place] tel:[phone] [facility] Other long term care pharmacist (current) drug therapyRheumatoi d arthritis w/o rheumatoid factor, multiple sitesLong term (current) use of aromatase inhibitorsPolyos teoarthritis, unspecifiedSpond ylosis w/o myelopathy or radiculopathy, lumbar regionCervical disc disorder, unsp, unspecified cervical region Jaymalick Schafer. [address], [address], [place], [place], [address], [place]. tel:[phone] [facility], [address], [place], [place], [address], [place] tel:[phone] [facility] Rheumatoid arthritis w/o rheumatoid factor, multiple sitesOther group home (current) drug therapyPolyosteo arthritis, unspecifiedChron ic kidney disease, unspecifiedObesi ty, unspecifiedMalig nant neoplasm of unspecified site of left female breast [facility] Hanh. [address], [address], [place], [place], [address], [place]. tel:[phone] [facility], [address], [place], [place], [address], [place] tel:[phone] [facility] Cervical disc disorder, unsp, unspecified cervical regionObesity, unspecifiedPolyo steoarthritis, unspecifiedSpond ylosis w/o myelopathy or radiculopathy, lumbar regionRheumatoid arthritis w/o rheumatoid factor, multiple sitesOther long term care pharmacist (current) drug therapy John-0 3-201 6 Jay Hanh. [address], [address], [place], [place], [address], [place]. tel:[phone] [facility], [address], [place], [place], [address], [place] tel:[phone] [facility] Rheumatoid arthritis w/o rheumatoid factor, multiple sitesSpondylosis w/o myelopathy or radiculopathy, lumbar regionOther long term care pharmacist (current) drug therapyPolyosteo arthritis, unspecifiedChron ic kidney disease, unspecified Jul-0 1-201 6 Jay Hanh. [address], [address], [place], [place], [address], [place]. tel:[phone] [facility], [address], [place], [place], [address], [place] tel:[phone] [facility] Rheumatoid arthritis w/o rheumatoid factor, multiple sites 4-201 5 [employer]version . . [facility], [address], [place], [place], [address], [place] tel:[phone] [facility] Chronic kidney disease, unspecifiedOther long term care pharmacist (current) drug therapyEssential (primary) hypertensionUnsp ecified osteoarthritis, unspecified siteObesity, unspecifiedRheum atoid arthritis w/o rheumatoid factor, multiple sites 0 1-201 5 Jay Hanh. [address], [address], [place], [place], [address], [place]. tel:[phone] [facility], [address], [place], [place], [address], [place] tel:[phone] [facility] OSTEOARTHROS NOS-UNSPECPERIPH VASCULAR DIS NOSRHEUMATOID ARTHRITISLUMBOSA CRAL SPONDYLOSISChron ic kidney disease, unspecifiedOther long term care pharmacist (current) drug therapy Jay Hanh. [address], [address], [place], [place], [address], [place]. tel:[phone] [facility], [address], [place], [place], [address], [place] tel:[phone] [facility] Rheumatoid arthritis, unspecified ZProvider Conversion . . [facility], [address], [place], [place], [address], [place] tel:[phone] [facility] CERVICAL DISC DEGENLUMBOSACRAL SPONDYLOSISRHEUM ATOID ARTHRITISOSTEOAR THROS NOS-UNSPEC ZProvider Conversion . . [facility], [address], [place], [place], [address], [place] tel:[phone] [facility] Spondylosis w/o myelopathy or radiculopathy, lumbar regionAnemia, unspecifiedUnspe cified osteoarthritis, unspecified siteCervical disc disorder, unsp, unspecified cervical regionRheumatoid arthritis, unspecifiedOther long term care pharmacist (current) drug therapyObesity, unspecified Jay Hanh. [address], [address], [place], [place], [address], [place]. tel:[phone] [facility], [address], [place], [place], [address], [place] tel:[phone] [facility] OBESITY NOSLONG-TERM USE MEDS NECRHEUMATOID ARTHRITIS 5 Jay Hanh. [address], [address], [place], [place], [address], [place]. tel:[phone] [facility], [address], [place], [place], [address], [place] tel:[phone] [facility] MALAISE AND FATIGUE NECOSTEOARTHROS NOS-UNSPEC ZProvider Conversion . . [facility], [address], [place], [place], [address], [place] tel:[phone] [facility] OSTEOARTHROS NOS-UNSPECOVARIA N FAILURE NECCERVICAL DISC DEGENJOINT PAIN-MULT JTSOTHER PSORIASIS ZProvider Conversion . . [facility], [address], [place], [place], [address], [place] tel:[phone] [facility] No Information ZProvider Conversion . . [facility], [address], [place], [place], [address], [place] tel:[phone] [facility] Pain in unspecified jointUnspecified osteoarthritis, unspecified sitePain in unspecified handSpondylosis w/o myelopathy or radiculopathy, lumbar regionCervical disc disorder, unsp, unspecified cervical regionPneumonia, unspecified organismElevated erythrocyte sedimentation ratePsoriasis, unspecifiedObesi ty, unspecified Jay Schafer. [address], [place], [place], [address], [place]. tel:[phone] [facility], [address], [place], [place], [address], [place] tel:[phone] AARA Closter CHEST PAIN NOSPNEUMONIA, ORGANISM NOSJOINT PAIN-MULT JTS Fe ZProvider Conversion . . [facility], [address], [place], [place], [address], [place] tel:[phone] AARA Closter CHEST PAIN NOSJOINT PAIN-MULT JTSMALAISE AND FATIGUE NECMYALGIA AND MYOSITIS NOS 5 ZProvider Conversion . . Prolonged Service, Office [facility], [address], [place], [place], [address], [place] tel:[phone] AARA Closter Pain in unspecified jointPsoriasis, unspecifiedMyalg iaOther fatiguePneumonia , unspecified organismPleurody niaOther primary ovarian failureLow back pain 5 Jay Swati. [address], [address], [place], [place], [address], [place]. tel:[phone] Family History Family Member Type Diagnosis Age [...] Covered green party ID Authoriza tion(s) Medicare 42100 [id number] [employer] [place] P[place] [id number] Social History Type Description Quantity Date Captured [...] Future Order: Lab Order Sed Rate (Automated) (3254), Collected on: , Sent on: Sent Future Order: Lab Order CBC (Aut omated) (3001), Sent on: Sent Future Order: Lab Order CMP (1001), Sent on: Sent Future Order: Lab Order C-Reacti ve Protein (1009), Sent on: Sent Future Order: Lab Order Sed Rate (Automated) (3925), Sent on: Sent Future Order: Lab Order CBC (Aut omated) (3001), Ordered on: Ordered Future Order: Lab Order CMP (1001), Order ed on: Ordered Future Order: Lab Order C-Reacti ve Protein (1009), Ordered on: Ordered Future Order: Lab Order Sed Rate (Automated) (5385), Ordered on: Ordered Future Order: Lab Order [...] Information Instructions Date Instruction Additional Infor nico Educated patient on OA and conservative strategies like - weight loss, PT, exercise, local heat, local gels. She declined PT for shoulder and spine OA.Given diffuse OA- approved permanent handicap placard. She will add turmeric to her diet. Related to Polyosteoarthritis, unspecified Wt loss advised Related to Body mass index (BMI) 38.0-38.9, adult Overall stable. XRay +. Deferred PT in past. Referred to pain Mx but declined. Says she does not want more meds or injections. Related to Spondylosis w/o myelopathy or radiculopathy, lumbar region Overall stable RA . Mild rt hand [...] Rheumatoid arthritis w/o rheumatoid factor, multiple sites Discussed with freddie king the following: -Labs [...] cirrhosis and the current recommendation from the [employer] is to get surveillance liver biopsies every several years. It was emphasized that Methotrexate can cause deformities and greatly increase the risk of spontaneous abortions, and under no circumstances is the patient to become or conceive while taking Methotrexate, and would need to be methotrexate free for a period of three months prior to conception. Related to Other long term care pharmacist (current) drug therapy Overall stable RA . [...] arthritis w/o rheumatoid factor, multiple sites Overall stable. XRay +. Deferred PT in [...] to her diet. Related to Polyosteoarthritis, unspecified Discussed with freddie king the following: [...] cirrhosis and the current recommendation from the [employer] is to get surveillance liver biopsies every several years. It was emphasized that Methotrexate can cause deformities and greatly increase the risk of spontaneous abortions, and under no circumstances is the patient to become or conceive while taking Methotrexate, and would need to be methotrexate free for a period of three months prior to conception. Related to Other group home (current) drug therapy Wt loss advised Related [...] cirrhosis and the current recommendation from the [employer] is to get surveillance liver biopsies every several years. It was emphasized that Methotrexate can cause deformities and greatly increase the risk of spontaneous abortions, and under no circumstances is the patient to become or conceive while taking Methotrexate, and would need to be methotrexate free for a period of three months prior to conception. Related to Other group home (current) drug therapy Educated patient on OA and conservative strategies like - weight loss, PT, exercise, local heat, local gels. She declined PT for shoulder and spine OA.Given diffuse OA- approved permanent handicap placard. Related to Polyosteoarthritis, unspecified Overall stable RA . Labs with mild [...] arthritis w/o rheumatoid factor, multiple sites Overall stable. XRay +. Deferred PT in past. Referred to pain Mx but declined. Says she does not want more meds or injections. 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 She declined PT for shoulder and spine OA.Given diffuse OA- approved permanent handicap placard. Related to Polyosteoarthritis, unspecified Discussed with freddie king the following: [...] cirrhosis and the current recommendation from the [employer] is to get surveillance liver biopsies every several years. It was emphasized that Methotrexate can cause deformities and greatly increase the risk of spontaneous abortions, and under no circumstances is the patient to become or conceive while taking Methotrexate, and would need to be methotrexate free for a period of three months prior to conception. Related to Other long term care pharmacist (current) drug therapy Overall stable. XRay +. Deferred PT in past. Referred to pain Mx but declined. Says she does not want more meds or injections. 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 It was emphasized that Methotrexate can cause deformities and greatly increase the risk of spontaneous abortions, and under no circumstances is the patient to become or conceive while taking Methotrexate, and would need to be methotrexate free for a period of three months prior to conception. Related to Other group home (current) drug therapy Wt loss advised Related to Body mass index (BMI) 38.0-38.9, adult Wt loss advised Related to Body mass [...] cirrhosis and the current recommendation from the [employer] is to get surveillance liver biopsies every several years. It was emphasized that Methotrexate can cause deformities and greatly increase the risk of spontaneous abortions, and under no circumstances is the patient to become or conceive while taking Methotrexate, and would need to be methotrexate free for a period of three months prior to conception. Related to Other group home (current) drug therapy Educated patient on OA and conservative strategies like - weight loss, PT, exercise, local heat, local gels. She declined PT for shoulder and spine OA.Given diffuse OA- approved permanent handicap placard. 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 XRay +. Deferred PT in past. Referred to pain Mx but declined. 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 XRay +. Deferred PT in [...] cirrhosis and the current recommendation from the [employer] is to get surveillance liver biopsies every several years. It was emphasized that Methotrexate can cause deformities and greatly increase the risk of spontaneous abortions, and under no circumstances is the patient to become or conceive while taking Methotrexate, and would need to be methotrexate free for a period of three months prior to conception. Related to Other long term care pharmacist (current) drug therapy Educated patient on OA and conservative strategies like - weight loss, PT, exercise, local heat, local gels. She declined PT for shoulder and spine OA.Given diffuse OA- approved permanent handicap placard. 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 Referral given to patient. Related to Polyosteoarthritis, unspecified Discussed with freddie king the following: [...] cirrhosis and the current recommendation from the [employer] is to get surveillance liver [...] the need for regular monitoring by an rotor balancer. Related to Other long term care pharmacist (current) drug therapy Overall stable. XRay +. Deferred PT in past. Referred to pain Mx today. 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 C VENICE 0. She [...] given to patient. Related to Polyosteoarthritis, unspecified Discussed with freddie king the following: [...] cirrhosis and the current recommendation from the [employer] is to get surveillance liver [...] the need for regular monitoring by an rotor balancer. Related to Other long term care pharmacist (current) drug therapy Overall stable. XRay +. Deferred PT in past but agreeable now to PT. Referral given. Defers pain management. 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 C VENICE 0. She [...] multiple sites Overall stable RA. C VENICE 0. She [...] cirrhosis and the current recommendation from the [employer] is to get surveillance liver [...] the need for regular monitoring by an rotor balancer. Related to Other long term care pharmacist (current) drug therapy September- Active RA with CDAi 9- improved after [...] arthritis w/o rheumatoid factor, multiple sites Clinically with rt w rist synovitis now. [...] ckd]. Related to Pain in unspecified joint Story: 05/17/14 Related to Pneum onia, unspecified organism Discussed with freddie king the following: -Labs [...] for clarifications or questions. Related to Other long term care pharmacist (current) drug therapy Discussed with freddie king [...] for clarifications or questions. Related to Other group home (current) drug therapy Educated patient on OA and conservative strategies like - weight loss, PT, exercise, local heat, local gels. Related to Unspecified osteoarthritis, unspecified site Educated patient on OA and conservative strategies like - weight loss, PT, exercise, local heat, local gels. 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 C VENIEC 4. She has stable CKD and is [...] Spondylosis w/o myelopathy or radiculopathy, lumbar region Stable. Maintain pcp fup. No NSA IDs. Related to Chronic kidney disease, unspecified Stable RA and minima l shoulder [...] arthritis w/o rheumatoid factor, multiple sites Overall stable. XRay +. Defers PT. Defers pain management. 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 Related to Cervical disc disorder, unsp, unspecified cervical region Discussed with freddie king the following: [...] for clarifications or questions. Related to Other group home (current) drug therapy Educated patient on OA and conservative strategies like - weight loss, PT, exercise, local heat, local gels. 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 Related to Cervical disc disorder, unsp, unspecified cervical region Scheduled fpr lumpec mario and XRT soon. Following with heme-onc. Related to Malignant neoplasm of unspecified site of left female breast Overall stable RA. C VENICE 4. She [...] Rheumatoid arthritis w/o rheumatoid factor, multiple sites Advised on healthy d iet and exercise to help with weight loss. Related to Obesity, unspecified Clinically no eviden ce of a chronic [...] care. Related to Pain in unspecified joint Improved synovitis a nd shoulder stiffness after [...] of ckd]. Related to Rheumatoid arthritis, unspecified Overall stable RA. C VENICE 7. [...] Rheumatoid arthritis w/o rheumatoid factor, multiple sites Advised on healthy d iet and exercise to help with weight loss and joint pain. Related to Obesity, unspecified Stable. Maintain pcp fup. No NSA IDs. Related to Chronic kidney disease, unspecified Active RA with CDAi 20. She is [...] hx of ckd]. Related to RHEUMATOID ARTHRITIS Educated patient on OA and conservative strategies [...] heat, local gels. 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 Related to RHEUMATOID ARTHRITIS Stable RA and minima l shoulder stiffness [...] Warm aqua therapy. Related to LUMBOSACRAL SPONDYLOSIS Stable. Maintain pcp fup. No NSA IDs. Related to Chronic kidney disease, unspecified Story: shoulder, kne es, neck, l spine, hands Related to OSTEOARTHROS NOS-UNSPEC Stable and follow up with PCP. R elated to Essential (primary) hypertension New breast cancer di agnosis and now on arimidex. Recommend fup DXA. 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 XRay +. Defers PT. Says will restart Warm aqua therapy. 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 She has s table CKD [...] D 1000 units daily.Return to clinic 7 weeks.Geovanni today.DXA ordered [last 08/21] as on armidex now for breast cancer.Tylenol prn pain for now [no nsaids as hx of ckd]. Related to Rheumatoid arthritis w/o rheumatoid factor, multiple sites Overall stable. XRay +. Defers PT. Says [...] heat, local gels. 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 Related to Obesity, unspecified Story: shoulder, kne es, neck, l spine, hands Related to Unspecified osteoarthritis, unspecified site Story: 05/17/14 Related to PNEUM ONIA, ORGANISM NOS Overall stable RA. C VENICE 7. Mild [...] of ckd]. Related to Rheumatoid arthritis, unspecified Stable RA. She has C KD [...] Rheumatoid arthritis w/o rheumatoid factor, multiple sites Advised on healthy d iet and exercise to help with weight loss. Related to Obesity, unspecified Educated patient on OA and conservative strategies like - weight loss, PT, exercise, local heat, local gels. 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 Maintain pcp fup. No NSA IDs. Related to Chronic kidney disease, unspecified Stable RA. She has s table CKD [...] heat, local gels. Related to OSTEOARTHROS NOS-UNSPEC Overall stable. XRay +. Defers PT. Defers [...] Spondylosis w/o myelopathy or radiculopathy, lumbar region Story: 05/17/14 Related to Pneum onia, unspecified organism S/s suggest bilatera l lower extremity claudication. Says PCP has already done tests and suggested compression stockings and ASA for possible PVD. 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 XRay +. Defers PT. Says will restart Warm aqua therapy. Defers pain management. 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 She has C KD and [...] Rheumatoid arthritis w/o rheumatoid factor, multiple sites September- Overall stable. XRay +. Defers PT. Defers pain management. 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
--- OUTSIDE RECORDS SUMMARY | 2024-05-31 16:51 | XMS_ITS | Referral Summary ---
Author Organization [facility] [address] Address [address] [place] [address] Care Team Providers Care Rolled Seat Trimmer Name Role Phone Yosvany Collins MD Primary Care Provider [phone] Encounters Date Type Department Care Team Description 05/10/2024 4:45 AM BAR CAPTAIN - 05/12/2024 5:30 PM BAR CAPTAIN Hospital Encounter [address] [phone] Cash Tejeda DO Sripada, Sarada, MD Gastrointestinal hemorrhage, unspecified gastrointestinal hemorrhage type [K92.2] (Primary Dx); Gastrointestinal hemorrhage, unspecified gastrointestinal hemorrhage type Discharge Disposition: Discharge to [facility] facility 05/11/2024 9:03 AM BAR CAPTAIN Anesthesia Event [facility] [address] [place] [phone] Rene Lofton MD 05/11/2024 9:00 AM BAR CAPTAIN - 05/11/2024 9:30 AM BAR CAPTAIN Surgery [facility] [address] [place] [phone] Jose Le MD COLONOSCOPY 05/10/2024 2:05 PM BAR CAPTAIN Anesthesia Event [facility] [address] [place] [phone] Brett Mcgraw MD 05/10/2024 2:30 PM BAR CAPTAIN - 05/10/2024 3:00 PM BAR CAPTAIN Surgery [facility] [address] [place] [address] Jose Le MD EGD 05/09/2024 Orders Only [facility] [address] [place] [address] Cash Tejeda, DO from Last [...] daily 30 tablet 5 06/11/19 25 Active dilTIAZem CD 180 mg 24 hr capsule Take 1 capsule (180 mg total) by mouth daily 3 05/10/19 25 Discontinued lisinopril-hyd roCHLOROthiazi de (ZESTORETIC) 20-12.5 mg per tablet Take 1 tablet by mouth daily 3 05/10/19 25 Discontinued anastrozole (ARIMIDEX) 1 mg tablet Take 1 mg by mouth daily 05/10/19 25 Discontinued ciprofloxacin (CIPRO) 500 mg tablet Take 1 tablet (500 mg total) by mouth 2 (two) times a day for 7 days 14 tablet 5 05/19/19 25 Active Problems Problem Noted Date Diagnosed Date GI bleed 05/10/2024 Bilateral impacted cerumen 06/16/2022 Sensorineural hearing loss (SNHL) of both ears 0 06/16/2022 Social History Tobacco Use Types Packs/Day Years Used Date Smoking Tobacco: Never Smokeless Tobacco: Never Tobacco Cessation:Counseling Given: Not Answered [facility] Utilities Answer Date Recorded In the past [...] often do you attend chur ch or rastafari services? Never 05/10/2024 Do you belong to any clubs o r organizations such as jewish groups, unions, fraternal or athletic groups, or [...] any time in the past 12 m [facility], were you homeless or living in a fdc (including now)? No 05/10/2024 Personal Safety Answer Date Recorded Have you ever been in or are you currently in a harmful physical or emotional relationship or is someone making you feel afraid or unsafe? Denies 05/10/2024 Comments No Sex and Gender Information Value Date Recorded Sex Assigned at Not on file Legal Sex Female 3:47 PM BAR CAPTAIN Gender Identity Not on file Sexual Orientation Not on file Last Filed Vital Signs Vital Sign Reading Time Taken Comments Blood Pressure 149/68 05/12/2024 12:56 PM BAR CAPTAIN Pulse 95 05/12/2024 12:56 PM BAR CAPTAIN Temperature 36.5 ??C (97.7 ??F) 05/12/2024 12:[address] Respiratory Rate 18 05/11/2024 10:11 AM BAR CAPTAIN Oxygen Saturation 100% 05/12/2024 12:56 PM BAR CAPTAIN Inhaled Oxygen Concentration - - Weight 91.2 kg (201 lb) 05/11/2024 8:32 AM BAR CAPTAIN Height 165.1 cm (5' 5 ) 05/11/2024 8:32 AM BAR CAPTAIN Body Mass Index 33.45 05/11/2024 8:32 AM BAR CAPTAIN Plan of Treatment Not on file Procedures Procedure Name Priority Date/Time Associated Diagnosis Comments FL SMALL BOWEL SERIES IP Routine 05/12/2024 9:17 AM BAR CAPTAIN EGFR Routine 05/12/2024 5:14 AM BAR CAPTAIN BASIC METABOLIC PANEL Routine 05/12/2024 5:14 AM BAR CAPTAIN COLONOSCOPY 05/11/2024 9:03 AM BAR CAPTAIN Gastrointestinal hemorrhage, unspecified gastrointestinal hemorrhage type COLONOSCOPY 05/11/2024 8:42 AM BAR CAPTAIN CBC WITHOUT DIFFERENTIAL STAT 025 6:42 AM BAR CAPTAIN XR CHEST PA LATERAL 2 VIEWS IP Routine 06/2024 3:45 PM BAR CAPTAIN ESOPHAGOGASTRODUODENOSCOPY 05/10 2:05 PM BAR CAPTAIN Gastrointestinal hemorrhage, unspecified gastrointestinal hemorrhage type EGD 05/10/2024 1:54 PM BAR CAPTAIN EGFR Routine 05/10/2024 6:37 AM BAR CAPTAIN DIFFERENTIAL AUTO Routine 05/10/2024 6:37 AM BAR CAPTAIN PROTIME-INR Routine 05/10/2024 6:37 AM BAR CAPTAIN COMPREHENSIVE METABOLIC PANEL Routine 6:37 AM BAR CAPTAIN CBC WITH AUTO DIFFERENTIAL Routine 05/10 6:37 AM BAR CAPTAIN from Last 3 Months Results * FL Small Bowel Series (05/12/2024 9:17 AM BAR CAPTAIN) Anatomical Region Laterality Modality Body N/A Radio Fluoroscop y 05/12/2024 3:01 PM BAR CAPTAIN Impressions 05/12/2024 3:01 PM BAR CAPTAIN No evidence of small bowel mass identified. Electronically signed by: Rene Barone M.D. Narrative 05/12/2024 3:01 PM BAR CAPTAIN EXAM: ??Small bowel series. HISTORY: Concern for small bowel mass COMPARISON: ??CT 05/04/2024 FINDINGS: ?? The patient was given water soluble contrast to drink and serial overhead films were obtained. ??Normal bowel gas pattern noted on the pilot captain radiograph. ??Surgical clips noted in the right [...] Normal bowel gas pattern noted on the pilot captain radiograph. Surgical clips noted in the right upper quadrant and pelvis. Contrast reaches the colon by 20 minutes. No evidence of small bowel mass. IMPRESSION: No evidence of small bowel mass identified. Electronically signed by: Rene Barone M.D. Missy Shipley MD IMG FLUOROSCOPY PROCEDURES Fin al Result * (ABNORMAL) eGFR (05/12/2024 5:14 AM BAR CAPTAIN) eGFR 43(L) >=60 mL/min/1. 73 m2 Comment: [...] last reviewed 2021. Blood 05/12/2024 5:14 AM BAR CAPTAIN 05/12/2024 5:35 AM BAR CAPTAIN Missy Shipley MD LAB BLOOD ORDERABLES Final Res ult [facility] [address] Department [place] [address] * (ABNORMAL) Basic metabolic panel (05/12/2024 5:14 AM BAR CAPTAIN) Sodium 145 135 - 145 mmol/L Potassium, pl 3.0(L) 3.3 - 4.9 mmol/L [facility] Chloride 111(H) 97 - 110 mmol/L [facility] CO2 21(L) 22 - 32 mmol/L [facility] Anion gap 13 2 - 15 mmol/L [facility] BUN 24 6 - 25 mg/dL [facility] Creatinine 1.22(H) 0.60 - 1.10 mg/dL [facility] Glucose 98 70 - 199 mg/dL [facility] Comment: Interpretive Data Fasting glucose >/= 126 [...] 2022. Calcium 8.3(L) 8.5 - 10.3 mg/dL [facility] Blood 05/12/2024 5:14 AM BAR CAPTAIN 05/12/2024 5:35 AM BAR CAPTAIN us Missy Shipley MD LAB BLOOD ORDERABLES Final Res ult [facility] [address] Department [place] [address] * Colonoscopy (05/11/2024 8:42 AM BAR CAPTAIN) Anatomical Region Laterality Modality Other Narrative Procedure Note Jose Le MD - 05/11/2024 8:42 AM CST ENDOSCOPY LAB Patient Name: Ana Luisa Yung Procedure Date: 05/11/2024 8:42 AM Admit Type: Inpatient Room: [facility] Date of : 1935 Instrument Name: [id number] [...] (ABNORMAL) CBC without differential (05/11/2024 6:42 AM BAR CAPTAIN) WBC 13.9(H) 3.8 - 9.9 K/cumm Hgb 8.3(L) 11.9 - 15.5 g/dL [facility] Hct 25.6(L) 35.6 - 45.5 % [facility] Plt 198 150 - 400 K/cumm [facility] MPV 13.8(H) 9.1 - 12.3 fL [facility] RBC 2.61(L) 3.90 - 5.20 M/cumm [facility] MCV 98.1(H) 81.3 - 96.4 fL [facility] MCH 31.8 27.1 - 33.3 pg [facility] MCHC 32.4 32.3 - 35.7 g/dL [facility] RDW CV 14.1 11.1 - 14.9 % [facility] RDW SD 49.3(H) 35.7 - 48.1 fL [facility] NRBC abs 0.00 0.00 - 0.01 K/cumm [facility] Blood 05/11/2024 6:42 AM BAR CAPTAIN 05/11/2024 6:54 AM BAR CAPTAIN Jose Le MD LAB BLOOD ORDERABLE S Final Result [facility] [address] Department [place] [address] * XR Chest PA Lateral 2 Views (05/10/2024 3:45 PM BAR CAPTAIN) Anatomical Region Laterality Modality Body, Chest N/A Computed Radiogr aphy 05/10/2024 3:55 PM BAR CAPTAIN Impressions 05/10/2024 3:55 PM BAR CAPTAIN FINDINGS/IMPRESSION: Left axillary surgical clips are seen. Minimal left retrocardiac atelectatic changes are noted. ??No visualized focal consolidation, pleural effusion or pneumothorax. The cardiomediastinal silhouette is grossly unremarkable. Electronically signed by: Catherine Ortiz M.D. Narrative 05/10/2024 3:55 PM BAR CAPTAIN EXAMINATION: XR CHEST PA LATERAL 2 VIEWS [...] inal Result * EGD (05/10/2024 1:54 PM BAR CAPTAIN) Anatomical Region Laterality Modality Other Narrative Procedure Note Jose Le MD - 05/10/2024 1:54 PM CST ENDOSCOPY LAB Patient Name: Ana Luisa Yung Procedure Date: 05/10/2024 1:54 PM Admit Type: Inpatient Room: [facility] Date of : 1935 Instrument Name: [id number] [...] Result * (ABNORMAL) eGFR (05/10/2024 6:37 AM BAR CAPTAIN) eGFR 44(L) >=60 mL/min/1. 73 m2 Comment: [...] of Race in Diagnosing Kidney Disease, JASN 2021). The CKD-EPI equation should not be used for patients with unstable renal function and has not been validated in children and those over 70. Current interpretive data was last reviewed 2021. Blood 05/10/2024 6:37 AM BAR CAPTAIN 05/10/2024 7:33 AM BAR CAPTAIN us Cash Tejeda DO LAB BLOOD ORDERABLES F inal Result [facility] [address] Department [place] [address] * (ABNORMAL) Differential, auto (05/10/2024 6:37 AM BAR CAPTAIN) Neutrophil abs 8.9(H) 1.5 - 6.5 K/cumm Imm gran abs 0.1 0.0 - 0.1 K/cumm [facility] Lymphocyte abs 3.5(H) 0.8 - 3.3 K/cumm [facility] Monocyte abs 0.9(H) 0.2 - 0.8 K/cumm [facility] Eosinophil abs 0.2 0.0 - 0.5 K/cumm [facility] Basophil abs 0.1 0.0 - 0.1 K/cumm [facility] Neutrophil pct 65.3 % [facility] Comment: Interpretive Data Percent cell count reference ranges are not reported, since discordance with absolute values may lead to misinterpretation of CBC data. Current Interpretive Data was last revised on 2017. Imm gran pct 0.5 % [facility] Comment: Interpretive Data Percent cell count reference ranges are not reported, since discordance with absolute values may lead to misinterpretation of CBC data. Current Interpretive Data was last revised on 2017. Lymphocyte pct 25.7 % [facility] Comment: Interpretive Data Percent cell count reference ranges are not reported, since discordance with absolute values may lead to misinterpretation of CBC data. Current Interpretive Data was last revised on 2017. Monocyte pct 6.6 % [facility] Comment: Interpretive Data Percent cell count reference ranges are not reported, since discordance with absolute values may lead to misinterpretation of CBC data. Current Interpretive Data was last revised on 2017. Eosinophil pct 1.5 % [facility] Comment: Interpretive Data Percent cell count reference ranges are not reported, since discordance with absolute values may lead to misinterpretation of CBC data. Current Interpretive Data was last revised on 2017. Basophil pct 0.4 % [facility] Comment: Interpretive Data Percent cell count reference ranges are not reported, since discordance with absolute values may lead to misinterpretation of CBC data. Current Interpretive Data was last revised on 2017. Blood 05/10/2024 6:37 AM BAR CAPTAIN 05/10/2024 7:33 AM BAR CAPTAIN Cash Tejeda DO LAB BLOOD ORDERABLES F inal Result [facility] [address] Department [place] [address] * (ABNORMAL) CBC with auto differential (05/10/2024 6:37 AM BAR CAPTAIN) WBC 13.6(H) 3.8 - 9.9 K/cumm Hgb 8.1(L) 11.9 - 15.5 g/dL [facility] Hct 25.1(L) 35.6 - 45.5 % [facility] Plt 174 150 - 400 K/cumm [facility] MPV 14.5(H) 9.1 - 12.3 fL [facility] RBC 2.56(L) 3.90 - 5.20 M/cumm [facility] MCV 98.0(H) 81.3 - 96.4 fL [facility] MCH 31.6 27.1 - 33.3 pg [facility] MCHC 32.3 32.3 - 35.7 g/dL [facility] RDW CV 13.9 11.1 - 14.9 % [facility] RDW SD 49.4(H) 35.7 - 48.1 fL [facility] NRBC abs 0.00 0.00 - 0.01 K/cumm [facility] Blood 05/10/2024 6:37 AM BAR CAPTAIN 05/10/2024 7:33 AM BAR CAPTAIN Cash Tejeda DO LAB BLOOD ORDERABLES F inal Result Performing Organization Address [facility] de Phone Number [facility] [address] [facility] [place] [address] * Protime-INR (05/10/2024 6:37 AM BAR CAPTAIN) [facility] PT 12.7 9.7 - 13.0 sec INR 1.17 0.90 - 1.20 [facility] Comment: Interpretive data Oral anticoagulant therapeutic ranges: Venous thromboembolism prophylaxis or treatment: 2.0-3.0 CARDIOLOGY Standard range: 2.0-3.0 High-intensity range: 2.5-3.5 Refer to indication-specific guidelines for appropriate target ranges for prosthetic heart valve replacement. Current interpretive data was last revised on 2019. Blood 05/10/2024 6:37 AM BAR CAPTAIN 05/10/2024 7:34 AM BAR CAPTAIN Cash Tejeda DO LAB BLOOD ORDERABLES F inal Result Performing Organization Address [facility] de Phone Number [facility] [address] [facility] [place] [place] [address] * (ABNORMAL) Comprehensive metabolic panel (05/10/2024 6:37 AM BAR CAPTAIN) [facility] Sodium 141 135 - 145 mmol/L Potassium, pl 3.3 3.3 - 4.9 mmol/L [facility] Chloride 108 97 - 110 mmol/L [facility] CO2 21(L) 22 - 32 mmol/L [facility] Anion gap 12 2 - 15 mmol/L [facility] BUN 43(H) 6 - 25 mg/dL [facility] Creatinine 1.20(H) 0.60 - 1.10 mg/dL [facility] Glucose 104 70 - 199 mg/dL [facility] Comment: Interpretive Data Fasting glucose >/= 126 [...] 2022. Calcium 8.3(L) 8.5 - 10.3 mg/dL [facility] Bilirubin, total 0.3 0.1 - 1.2 mg/dL [facility] Protein, pl 5.4(L) 6.5 - 8.5 g/dL [facility] Albumin 3.7 3.5 - 5.0 g/dL [facility] Alk phos 73 40 - 130 Units/L [facility] ALT 20 7 - 45 Units/L [facility] AST 25 10 - 45 Units/L [facility] Blood 05/10/2024 6:37 AM BAR CAPTAIN 05/10/2024 7:33 AM BAR CAPTAIN Cash Tejeda DO LAB BLOOD ORDERABLES F inal Result [facility] [address] Department of Laboratories [place], [place] [id number] from Last 3 Months Insurance MEDICARE [place] [employer] Advance Directives For more information, please contact: [phone] Documents on File Type Date Recorded Patient Laborer Prestressed Concrete Expl anation ADVANCE DIRECTIVE 05/14/2024 2:11 PM POLST ADVANCE DIRECTIVE 05/14/2024 1:44 PM LIVING WILL ADVANCE DIRECTIVE 05/14/2024 1:44 PM POWER OF PRINCIPAL CLERK-MEDICAL * Full Code (Latest Code Status on File) Date Activated Date Inactivated Comments 05/10/2024 4:45 AM 05/12/2024 9:57 PM Care Teams Rolled Seat Trimmer Relationship Specialty Start Date End Date Yosvany Collins MD PCP - General Internal Medicine 05/13/22
--- OUTSIDE RECORDS SUMMARY | 2024-05-31 16:51 | XMS_ITS | Clinical Summary ---
Author Organization [facility] [address] [email or web address] Address [address] [place] [address] Care Team Providers Care Life Skills Coordinator Name Role Phone Yosvany Collins MD Primary Care Provider [phone] Allergies Active Allergy Reactions Criticality Noted Date [...] Department Care Team Description 05/11/2024 9:03 AM SECURITY ADMINISTRATOR Anesthesia Event [facility] [address] [place] [phone] Rene Lofton MD 05/11/2024 9:00 AM SECURITY ADMINISTRATOR - 05/11/2024 9:30 AM SECURITY ADMINISTRATOR Surgery [facility] [address] [place] [phone] Jose Le MD COLONOSCOPY 05/10/2024 2:30 PM SECURITY ADMINISTRATOR - 05/10/2024 3:00 PM SECURITY ADMINISTRATOR Surgery [facility] [address] [place] [phone] Jose Le MD EGD 05/10/2024 2:05 PM SECURITY ADMINISTRATOR Anesthesia Event [facility] [address] [place] [phone] Brett Mcgraw MD 05/10/2024 4:45 AM SECURITY ADMINISTRATOR - 05/12/2024 5:30 PM SECURITY ADMINISTRATOR Hospital Encounter [address] [phone] Cash Tejeda DO Sripada, Sarada, MD Gastrointestinal hemorrhage, unspecified gastrointestinal hemorrhage type [K92.2] (Primary Dx); Gastrointestinal hemorrhage, unspecified gastrointestinal hemorrhage type Discharge Disposition: Discharge to fdc facility 05/09/2024 Orders Only [facility] Hospitalists [address] [place] [phone] Cash Tejeda DO from Last 3 Months [...] Tobacco: Never Tobacco Cessation:Counseling Given: Not Answered [facility] Utilities Answer Date Recorded In the past 12 months has th e [employer], gas, oil, or water [employer] threatened to shut off services in your [...] often do you attend chur ch or yazidism services? Never 05/10/2024 Do you belong to any clubs o r organizations such as latter day groups, unions, fraternal or athletic groups, or [...] any time in the past 12 m [facility], were you homeless or living in a group home (including now)? No 05/10/2024 Personal Safety Answer Date Recorded Have you ever been in or are you currently in a harmful physical or emotional relationship or is someone making you feel afraid or unsafe? Denies 05/10/2024 Comments No Sex and Gender Information Value Date Recorded Sex Assigned at Not on file Legal Sex Female 3:47 PM SECURITY ADMINISTRATOR Gender Identity Not on file Sexual Orientation Not on file Obstetrics History Last Filed Vital Signs Vital Sign Reading Time Taken Comments Blood Pressure 149/68 05/12/2024 12:56 PM SECURITY ADMINISTRATOR Pulse 95 05/12/2024 12:56 PM SECURITY ADMINISTRATOR Temperature 36.5 ??C (97.7 ??F) 05/12/2024 12:[address] Respiratory Rate 18 05/11/2024 10:11 AM SECURITY ADMINISTRATOR Oxygen Saturation 100% 05/12/2024 12:56 PM SECURITY ADMINISTRATOR Inhaled Oxygen Concentration - - Weight 91.2 kg (201 lb) 05/11/2024 8:32 AM SECURITY ADMINISTRATOR Height 165.1 cm (5' 5 ) 05/11/2024 8:32 AM SECURITY ADMINISTRATOR Body Mass Index 33.45 05/11/2024 8:32 AM SECURITY ADMINISTRATOR Plan of Treatment Health Maintenance Due Date [...] BOWEL SERIES IP Routine 05/12/2024 9:17 AM SECURITY ADMINISTRATOR EGFR Routine 05/12/2024 5:14 AM SECURITY ADMINISTRATOR BASIC METABOLIC PANEL Routine 05/12/2024 5:14 AM SECURITY ADMINISTRATOR COLONOSCOPY 05/11/2024 9:03 AM SECURITY ADMINISTRATOR Gastrointestinal hemorrhage, unspecified gastrointestinal hemorrhage type COLONOSCOPY 05/11/2024 8:42 AM SECURITY ADMINISTRATOR CBC WITHOUT DIFFERENTIAL STAT 025 6:42 AM SECURITY ADMINISTRATOR XR CHEST PA LATERAL 2 VIEWS IP Routine 06/2024 3:45 PM SECURITY ADMINISTRATOR ESOPHAGOGASTRODUODENOSCOPY 05/10 2:05 PM SECURITY ADMINISTRATOR Gastrointestinal hemorrhage, unspecified gastrointestinal hemorrhage type EGD 05/10/2024 1:54 PM SECURITY ADMINISTRATOR EGFR Routine 05/10/2024 6:37 AM SECURITY ADMINISTRATOR DIFFERENTIAL AUTO Routine 05/10/2024 6:37 AM SECURITY ADMINISTRATOR PROTIME-INR Routine 05/10/2024 6:37 AM SECURITY ADMINISTRATOR COMPREHENSIVE METABOLIC PANEL Routine 6:37 AM SECURITY ADMINISTRATOR CBC WITH AUTO DIFFERENTIAL Routine 05/10 6:37 AM SECURITY ADMINISTRATOR from Last 3 Months Results * FL Small Bowel Series (05/12/2024 9:17 AM SECURITY ADMINISTRATOR) Anatomical Region Laterality Modality Body N/A Radio Fluoroscop y 05/12/2024 3:01 PM SECURITY ADMINISTRATOR Impressions 05/12/2024 3:01 PM SECURITY ADMINISTRATOR No evidence of small bowel mass identified. Electronically signed by: Rene Barone M.D. Narrative 05/12/2024 3:01 PM SECURITY ADMINISTRATOR EXAM: ??Small bowel series. HISTORY: Concern for small bowel mass COMPARISON: ??CT 05/04/2024 FINDINGS: ?? The patient was given water soluble contrast to drink and serial overhead films were obtained. ??Normal bowel gas pattern noted on the blasting cap assembler radiograph. ??Surgical clips noted in the right [...] Normal bowel gas pattern noted on the blasting cap assembler radiograph. Surgical clips noted in the right upper quadrant and pelvis. Contrast reaches the colon by 20 minutes. No evidence of small bowel mass. IMPRESSION: No evidence of small bowel mass identified. Electronically signed by: Rene Barone M.D. Missy Shipley MD IMG FLUOROSCOPY PROCEDURES Fin al Result * (ABNORMAL) eGFR (05/12/2024 5:14 AM SECURITY ADMINISTRATOR) eGFR 43(L) >=60 mL/min/1. 73 m2 Comment: [...] last reviewed 2021. Blood 05/12/2024 5:14 AM SECURITY ADMINISTRATOR 05/12/2024 5:35 AM SECURITY ADMINISTRATOR us Missy Shipley MD LAB BLOOD ORDERABLES Final Res ult [facility] [address] Department [place] [address] * (ABNORMAL) Basic metabolic panel (05/12/2024 5:14 AM SECURITY ADMINISTRATOR) Sodium 145 135 - 145 mmol/L Potassium, pl 3.0(L) 3.3 - 4.9 mmol/L [facility] Chloride 111(H) 97 - 110 mmol/L [facility] CO2 21(L) 22 - 32 mmol/L [facility] Anion gap 13 2 - 15 mmol/L [facility] BUN 24 6 - 25 mg/dL [facility] Creatinine 1.22(H) 0.60 - 1.10 mg/dL [facility] Glucose 98 70 - 199 mg/dL [facility] Comment: Interpretive Data Fasting glucose >/= [...] Calcium 8.3(L) 8.5 - 10.3 mg/dL [facility] Blood 05/12/2024 5:14 AM SECURITY ADMINISTRATOR 05/12/2024 5:35 AM SECURITY ADMINISTRATOR us Missy Shipley MD LAB BLOOD ORDERABLES Final Res ult [facility] [address] Department [place] [address] * Colonoscopy (05/11/2024 8:42 AM SECURITY ADMINISTRATOR) Anatomical Region Laterality Modality Other Narrative Procedure Note Jose Le MD - 05/11/2024 8:42 AM CST ENDOSCOPY LAB Patient Name: Ana Liusa Yung Procedure Date: 05/11/2024 8:42 AM Admit Type: Inpatient Room: [facility] Date of : 1935 Instrument Name: [id number] [...] (ABNORMAL) CBC without differential (05/11/2024 6:42 AM SECURITY ADMINISTRATOR) WBC 13.9(H) 3.8 - 9.9 K/cumm Hgb 8.3(L) 11.9 - 15.5 g/dL [facility] Hct 25.6(L) 35.6 - 45.5 % [facility] Plt 198 150 - 400 K/cumm [facility] MPV 13.8(H) 9.1 - 12.3 fL [facility] RBC 2.61(L) 3.90 - 5.20 M/cumm [facility] MCV 98.1(H) 81.3 - 96.4 fL [facility] MCH 31.8 27.1 - 33.3 pg [facility] MCHC 32.4 32.3 - 35.7 g/dL [facility] RDW CV 14.1 11.1 - 14.9 % [facility] RDW SD 49.3(H) 35.7 - 48.1 fL [facility] NRBC abs 0.00 0.00 - 0.01 K/cumm [facility] Blood 05/11/2024 6:42 AM SECURITY ADMINISTRATOR 05/11/2024 6:54 AM SECURITY ADMINISTRATOR Jose Le MD LAB BLOOD ORDERABLE S Final Result [facility] [address] Department [place] [address] * XR Chest PA Lateral 2 Views (05/10/2024 3:45 PM SECURITY ADMINISTRATOR) Anatomical Region Laterality Modality Body, Chest N/A Computed Radiogr aphy 05/10/2024 3:55 PM SECURITY ADMINISTRATOR Impressions 05/10/2024 3:55 PM SECURITY ADMINISTRATOR FINDINGS/IMPRESSION: Left axillary surgical clips are seen. Minimal left retrocardiac atelectatic changes are noted. ??No visualized focal consolidation, pleural effusion or pneumothorax. The cardiomediastinal silhouette is grossly unremarkable. Electronically signed by: Catherine Ortiz M.D. Narrative 05/10/2024 3:55 PM SECURITY ADMINISTRATOR EXAMINATION: XR CHEST PA LATERAL 2 VIEWS [...] inal Result * EGD (05/10/2024 1:54 PM SECURITY ADMINISTRATOR) Anatomical Region Laterality Modality Other Narrative Procedure Note Jose Le MD - 05/10/2024 1:54 PM CST ENDOSCOPY LAB Patient Name: Ana Luisa Yung Procedure Date: 05/10/2024 1:54 PM Admit Type: Inpatient Room: [facility] Date of : 1935 Instrument Name: [...] Result * (ABNORMAL) eGFR (05/10/2024 6:37 AM SECURITY ADMINISTRATOR) eGFR 44(L) >=60 mL/min/1. 73 m2 Comment: [...] last reviewed 2021. Blood 05/10/2024 6:37 AM SECURITY ADMINISTRATOR 05/10/2024 7:33 AM SECURITY ADMINISTRATOR Cash Tejeda DO LAB BLOOD ORDERABLES F inal Result [facility] [address] Department [place] [address] * (ABNORMAL) Differential, auto (05/10/2024 6:37 AM SECURITY ADMINISTRATOR) Pathologist [facility] Neutrophil abs 8.9(H) 1.5 - 6.5 K/cumm Imm gran abs 0.1 0.0 - 0.1 K/cumm [facility] Lymphocyte abs 3.5(H) 0.8 - 3.3 K/cumm [facility] Monocyte abs 0.9(H) 0.2 - 0.8 K/cumm [facility] Eosinophil abs 0.2 0.0 - 0.5 K/cumm [facility] Basophil abs 0.1 0.0 - 0.1 K/cumm [facility] Neutrophil pct 65.3 % [facility] Comment: Interpretive Data Percent cell count reference ranges are not reported, since discordance with absolute values may lead to misinterpretation of CBC data. Current Interpretive Data was last revised on 2017. Imm gran pct 0.5 % [facility] Comment: Interpretive Data Percent cell count reference ranges are not reported, since discordance with absolute values may lead to misinterpretation of CBC data. Current Interpretive Data was last revised on 2017. Lymphocyte pct 25.7 % [facility] Comment: Interpretive Data Percent cell count reference ranges are not reported, since discordance with absolute values may lead to misinterpretation of CBC data. Current Interpretive Data was last revised on 2017. Monocyte pct 6.6 % [facility] Comment: Interpretive Data Percent cell count reference ranges are not reported, since discordance with absolute values may lead to misinterpretation of CBC data. Current Interpretive Data was last revised on 2017. Eosinophil pct 1.5 % [facility] Comment: Interpretive Data Percent cell count reference ranges are not reported, since discordance with absolute values may lead to misinterpretation of CBC data. Current Interpretive Data was last revised on 2017. Basophil pct 0.4 % [facility] Comment: Interpretive Data Percent cell count reference ranges are not reported, since discordance with absolute values may lead to misinterpretation of CBC data. Current Interpretive Data was last revised on 2017. Blood 05/10/2024 6:37 AM SECURITY ADMINISTRATOR 05/10/2024 7:33 AM SECURITY ADMINISTRATOR us Cash Tejeda DO LAB BLOOD ORDERABLES F inal Result [facility] [address] Department [place] [address] * (ABNORMAL) CBC with auto differential (05/10/2024 6:37 AM SECURITY ADMINISTRATOR) WBC 13.6(H) 3.8 - 9.9 K/cumm Hgb 8.1(L) 11.9 - 15.5 g/dL [facility] Hct 25.1(L) 35.6 - 45.5 % [facility] Plt 174 150 - 400 K/cumm [facility] MPV 14.5(H) 9.1 - 12.3 fL [facility] RBC 2.56(L) 3.90 - 5.20 M/cumm [facility] MCV 98.0(H) 81.3 - 96.4 fL [facility] MCH 31.6 27.1 - 33.3 pg [facility] MCHC 32.3 32.3 - 35.7 g/dL [facility] RDW CV 13.9 11.1 - 14.9 % [facility] RDW SD 49.4(H) 35.7 - 48.1 fL [facility] NRBC abs 0.00 0.00 - 0.01 K/cumm [facility] Blood 05/10/2024 6:37 AM SECURITY ADMINISTRATOR 05/10/2024 7:33 AM SECURITY ADMINISTRATOR Cash Tejeda DO LAB BLOOD ORDERABLES F inal Result [facility] [address] Department of Laboratories [place], [place] [id number] * Protime-INR (05/10/2024 6:37 AM SECURITY ADMINISTRATOR) PT 12.7 9.7 - 13.0 sec INR 1.17 0.90 - 1.20 [facility] Comment: Interpretive data Oral anticoagulant therapeutic ranges: Venous thromboembolism prophylaxis or treatment: 2.0-3.0 CARDIOLOGY Standard range: 2.0-3.0 High-intensity range: 2.5-3.5 Refer to indication-specific guidelines for appropriate target ranges for prosthetic heart valve replacement. Current interpretive data was last revised on 2019. Blood 05/10/2024 6:37 AM SECURITY ADMINISTRATOR 05/10/2024 7:34 AM SECURITY ADMINISTRATOR us Cash Tejeda DO LAB BLOOD ORDERABLES F inal Result [facility] [address] Department [place] [address] * (ABNORMAL) Comprehensive metabolic panel (05/10/2024 6:37 AM SECURITY ADMINISTRATOR) Sodium 141 135 - 145 mmol/L Potassium, pl 3.3 3.3 - 4.9 mmol/L [facility] Chloride 108 97 - 110 mmol/L [facility] CO2 21(L) 22 - 32 mmol/L [facility] Anion gap 12 2 - 15 mmol/L [facility] BUN 43(H) 6 - 25 mg/dL [facility] Creatinine 1.20(H) 0.60 - 1.10 mg/dL [facility] Glucose 104 70 - 199 mg/dL [facility] Comment: Interpretive Data Fasting glucose >/= [...] 2022. Calcium 8.3(L) 8.5 - 10.3 mg/dL [facility] Bilirubin, total 0.3 0.1 - 1.2 mg/dL [facility] Protein, pl 5.4(L) 6.5 - 8.5 g/dL [facility] Albumin 3.7 3.5 - 5.0 g/dL [facility] Alk phos 73 40 - 130 Units/L [facility] ALT 20 7 - 45 Units/L [facility] AST 25 10 - 45 Units/L [facility] Blood 05/10/2024 6:37 AM SECURITY ADMINISTRATOR 05/10/2024 7:33 AM SECURITY ADMINISTRATOR us Cash Tejeda DO LAB BLOOD ORDERABLES F inal Result [facility] [address] Department [place] [address] from Last 3 Months Insurance MEDICARE [facility] O MEDICARE Advance Directives For more information, please contact: [phone] Documents on File Type Date Recorded Patient Rn Diabetes Expl anation ADVANCE DIRECTIVE 05/14/2024 2:11 PM POLST ADVANCE DIRECTIVE 05/14/2024 1:44 PM LIVING WILL ADVANCE DIRECTIVE 05/14/2024 1:44 PM POWER OF SPRAY MACHINE TENDER-MEDICAL * Full Code (Latest Code Status on File) Date Activated Date Inactivated Comments 05/10/2024 4:45 AM 05/12/2024 9:57 PM Care Teams Life Skills Coordinator Relationship Specialty Start Date End Date Yosvany Collins MD PCP - General Internal Medicine 05/13/22
== END 2024-05-29 09:25 | disposition home or self-care (01) ==
PROVIDERS: PCP Internal Medicine; Visit Provider Internal Medicine
DX: I10 Essential (primary) hypertension (principal); N18.2 Chronic kidney disease, stage 2 (mild); E83.42 Hypomagnesemia; R06.00 Dyspnea, unspecified
CPT/HCPCS: 36415; 80053; 83735; 83880; 85025; 86140

== ENCOUNTER 2024-06-26 10:25 | Outpatient (CLI) | payer MEDICARE, SELFPAY ==
--- NOTE | ~2024-06-26 | PE_ITS ---
EXAMINATION: PET skull to mid thigh DATE: 06/26/2024 12:50 INDICATION: Pulmonary nodule TECHNIQUE: Blood glucose level was 89 mg/dL. 10.424 mCi of 18-fluorodeoxyglucose (18-FDG) was adminis tered i.v. Low dose computed tomography (CT) images were acquired from the base of the brain to the p roximal thighs for attenuation correction and anatomic localization. Positron emission tomography (PE T) images were acquired in the same distribution beginning 52 minutes after injection. Images includi ng fused PET/CT images were reconstructed in axial, coronal, and sagittal planes. Automated exposure control technique was employed. The dose-length product was 1116.38mGy-cm. COMPARISON: CT abdomen and pelvis dated 05/09/2024 FINDINGS: Head/neck: There is symmetric increased activity in the oral cavity, laryngeal muscles and ocular muscles withou t CT correlate, likely physiologic. No pathologically enlarged cervical lymphadenopathy or suspicious foci of increased FDG uptake in the visualized head or neck. Chest: Minimal FDG uptake with maximal SUV of 2.3 associated with a 1.6 cm partially cavitary right lower lo be nodule. Additional 8 mm nodule along the right minor fissure and <4 mm nodule at the right apex wi thout evident FDG activity. Additional small calcified nodule at the right apex consistent with old g ranulomatous disease. No other suspicious pulmonary nodules, pneumonia, pulmonary edema or pleural ef fusion. Heart size is normal. Atherosclerotic coronary artery calcific lesion. No pericardial effusio n. 4.5 cm diameter ascending thoracic aortic aneurysm. No pathologically enlarged or FDG avid thoraci c lymphadenopathy. Calcified mediastinal lymph nodes consistent with old granulomatous disease. Small to moderate-sized sliding-type hiatal hernia. Surgical clips the left axilla consistent with prior a xillary lymph node dissection. Abdomen/pelvis/proximal thighs: Physiologic renal accumulation and excretion of FDG activity in the kidneys, bladder and along portio ns of ureters. Likely age-related mild bilateral renal atrophy. There are 3 low-attenuation hepatic c ysts measuring up to 2.5 cm with corresponding photopenic defects on the PET images. Cholecystectomy clips the gallbladder fossa. Multiple tiny splenic calcification consistent with old granulomatous di sease. The pancreas and bilateral adrenal glands are normal. Mild uptake scattered throughout the bow els without radiologic correlate, also likely physiologic. There are few scattered colonic diverticul a without adjacent inflammatory stranding to suggest diverticulitis. Normal appendix. The uterus bila teral ovaries are not identified and have likely been surgically resected. No other abnormal foci of increased FDG uptake or pathologically enlarged lymphadenopathy in the abdomen, pelvis or proximal th ighs. Musculoskeletal: Severe spondylosis throughout the spine. No suspicious lytic, blastic or abnormally FDG avid bone les ions. IMPRESSION: 1. Mild FDG activity associated with a 1.6 cm right lower lobe nodule which remains equivocal for inf ectious/inflammatory nodules or malignancy. Would consider CT-guided percutaneous biopsy for definiti ve determination. 2. No other abnormal FDG avid lesions to suggest metastatic disease. 3. Small to moderate-sized sliding-type hiatal hernia. Reviewed, dictated and finalized at location A. IAC SPECIALIST IMPRESSION: 1. Mild FDG activity associated with a 1.6 cm right lower lobe nodule which rem ains equivocal for infectious/inflammatory nodules or malignancy. Would conside r CT-guided percutaneous biopsy for definitive determination. 2. No other abnormal FDG avid lesions to suggest metastatic disease. 3. Small to moderate-sized sliding-type hiatal hernia.
--- OUTSIDE RECORDS SUMMARY | 2024-06-26 10:39 | XMS_ITS | Continuity of Care Document ---
Author Organization [facility] Address [address] [place] [address] Phone Care Team Providers Care Central Service Technician Name Role Phone Hanh Thompson MD Unavailable [...] Rheumatolo gy, [address], [place], [place], [id number], [place] tel:[phone] MARK Antwon No Information 3 Jay Hanh. [address], [address], [place], [place], [id number], [place]. tel:[phone] [facility], [address], [place], [place], [address], [place] tel:[phone] MARK Muñoz No Information 1 Jay Schafer. [address], [address], [place], [place], [address], [place]. tel:[phone] [facility], [address], [place], [place], [id number], [place] tel:[phone] CANDYPati [place] No Information 1 Jay Hanh. [address], [address], [place], [place], [address], [place]. tel:[phone] PHONE E/M BY PHYS 21-30 MIN [facility], [address], [place], [place], [address], [place] tel:[phone] [facility] Rheumatoid Arthritis (chief complaint) Rheumatoid arthritis w/o rheumatoid factor, multiple sitesPolyosteoar thritis, unspecifiedSpond ylosis w/o myelopathy or radiculopathy, lumbar regionBody mass index (BMI) 38.0-38.9, adultOther intermediate teacher (current) drug therapy 1 Jay Hanh. [address], [address], [place], [place], [address], [place]. tel:[phone] Office/outpa tient Visit, Est [facility], [address], [place], [place], [address], [place] tel:[phone] [facility] Rheumatoid Arthritis (chief complaint) Rheumatoid arthritis w/o rheumatoid factor, multiple sitesPolyosteoar thritis, unspecifiedSpond ylosis w/o myelopathy or radiculopathy, lumbar regionBody mass index (BMI) 38.0-38.9, adultOther skilled nursing (current) drug therapy 0 Jay Hanh. [address], [address], [place], [place], [address], [place]. tel:[phone] Referring Provider: Marzena Moss, [address], [place], [address] . Office/outpa tient Visit, [facility], [address], [place], [place], [address], [place] tel:[phone] [facility] Rheumatoid Arthritis (chief complaint) Rheumatoid arthritis w/o rheumatoid factor, multiple sitesPolyosteoar thritis, unspecifiedSpond ylosis w/o myelopathy or radiculopathy, lumbar regionBody mass index (BMI) 38.0-38.9, adultOther skilled nursing (current) drug therapy 0 Jay Hanh. [address], [address], [place], [place], [address], [place]. tel:[phone] Referring Provider: Marzena Moss, [address], [place], [address] . Office/outpa tient Visit, [facility], [address], [place], [place], [address], [place] tel:[phone] [facility] Rheumatoid Arthritis (chief complaint) Rheumatoid arthritis w/o rheumatoid factor, multiple sitesPolyosteoar thritis, unspecifiedSpond ylosis w/o myelopathy or radiculopathy, lumbar regionBody mass index (BMI) 38.0-38.9, adultOther intermediate teacher (current) drug therapy 0 Terry Arce. [address], [address], [place], [address], [place]. tel:[phone] Referring Provider: [address], [place], [address] . Office/outpa tient Visit, Est [facility], [address], [place], [place], [address], [place] tel:[phone] [facility] Rheumatoid Arthritis (chief complaint) Rheumatoid arthritis w/o rheumatoid factor, multiple sitesPolyosteoar thritis, unspecifiedSpond ylosis w/o myelopathy or radiculopathy, lumbar regionBody mass index (BMI) 38.0-38.9, adultOther skilled nursing (current) drug therapy Apr- 9 Jay Hanh. [address], [address], [place], [place], [address], [place]. tel:[phone] Referring Provider: Marzena Moss, [address], [place], [address] . Office/outpa tient Visit, Est [facility], [address], [place], [place], [address], [place] tel:[phone] [facility] Rheumatoid Arthritis (chief complaint) Body mass index (BMI) 38.0-38.9, adultRheumatoid arthritis w/o rheumatoid factor, multiple sitesPolyosteoar thritis, unspecifiedSpond ylosis w/o myelopathy or radiculopathy, lumbar regionOther skilled nursing (current) drug therapy Jan- 9 Jay Hanh. [address], [address], [place], [place], [address], [place]. tel:[phone] Referring Provider: Marzena Msos, [address], [place], [address] . Office/outpa tient Visit, Est [facility], [address], [place], [place], [address], [place] tel:[phone] [facility] Rheumatoid Arthritis (chief complaint) Rheumatoid arthritis w/o rheumatoid factor, multiple sitesPolyosteoar thritis, unspecifiedSpond ylosis w/o myelopathy or radiculopathy, lumbar regionOther skilled nursing (current) drug therapy 0 9 [facility]. [address], [address], [place], [place], [address], [place]. tel:[phone] Referring Provider: Marzena Moss, [address], [place], [address] . Office/outpa tient Visit, Est [facility], [address], [place], [place], [address], [place] tel:[phone] [facility] Rheumatoid Arthritis (chief complaint) Rheumatoid arthritis w/o rheumatoid factor, multiple sitesOther intermediate teacher (current) drug therapyPolyosteo arthritis, unspecifiedSpond ylosis w/o myelopathy or radiculopathy, lumbar region 9 [facility]. [address], [address], [place], [place], [address], [place]. tel:[phone] Referring Provider: Marzena Moss, [address], [place], [address] . Office/outpa tient Visit, Est [facility], [address], [place], [place], [address], [place] tel:[phone] [facility] Rheumatoid Arthritis (chief complaint) Rheumatoid arthritis w/o rheumatoid factor, multiple sitesPolyosteoar thritis, unspecifiedSpond ylosis w/o myelopathy or radiculopathy, lumbar regionOther intermediate teacher (current) drug therapy 8 Terry Arce. [address], [address], [place], [address], [place]. tel:[phone] Referring Provider: Marzena Moss, [address], [place], [address] . Office/outpa tient Visit, Est [facility], [address], [place], [place], [address], [place] tel:[phone] MARK Montgomery Rheumatoid Arthritis (chief complaint) Rheumatoid arthritis w/o rheumatoid factor, multiple sitesPolyosteoar thritis, unspecifiedSpond ylosis w/o myelopathy or radiculopathy, lumbar regionOther skilled nursing (current) drug therapy 8 Jaymalick Schafer. [address], [address], [place], [place], [address], [place]. tel:[phone] Referring Provider: Mrazena Moss, [address], [place], [address] . [facility], [address], [place], [place], [address], [place] tel:[phone] MARK Rodríguezndale Rheumatoid arthritis w/o rheumatoid factor, multiple sites 8 [facility] [employer]version . . [facility], [address], [place], [place], [address], [place] tel:[phone] [facility] Rheumatoid arthritis w/o rheumatoid factor, multiple sitesOther skilled nursing (current) drug therapyPolyosteo arthritis, unspecifiedSpond ylosis w/o myelopathy or radiculopathy, lumbar region 8 Jay Swati. [address], [address], [place], [place], [address], [place]. tel:[phone] [facility], [address], [place], [place], [address], [place] tel:[phone] MARK Reyesale Rheumatoid arthritis w/o rheumatoid factor, multiple sites 7 [facility] . . [facility], [address], [place], [place], [address], [place] tel:[phone] [facility] Polyosteoarthrit is, unspecifiedCervi joshua disc disorder, unsp, unspecified cervical regionSpondylosi s w/o myelopathy or radiculopathy, lumbar regionOther intermediate teacher (current) drug therapyRheumatoi d arthritis w/o rheumatoid factor, multiple sites [facility]. [address], [address], [place], [place], [address], [place]. tel:[phone] [facility], [address], [place], [place], [address], [place] tel:[phone] [facility] Cervical disc disorder, unsp, unspecified cervical regionSpondylosi s w/o myelopathy or radiculopathy, lumbar regionRheumatoid arthritis w/o rheumatoid factor, multiple sitesPolyosteoar thritis, unspecifiedOther intermediate teacher (current) drug therapy [facility]. [address], [address], [place], [place], [address], [place]. tel:[phone] [facility], [address], [place], [place], [address], [place] tel:[phone] [facility] Polyosteoarthrit is, unspecifiedObesi ty, unspecifiedRheum atoid arthritis w/o rheumatoid factor, multiple sitesSpondylosis w/o myelopathy or radiculopathy, lumbar regionCervical disc disorder, unsp, unspecified cervical region [facility]. [address], [address], [place], [place], [address], [place]. tel:[phone] [facility], [address], [place], [place], [address], [place] tel:[phone] [facility] Rheumatoid arthritis w/o rheumatoid factor, multiple sitesOth disrd of bone density and structure, left forearmOther skilled nursing (current) drug therapyCervical disc disorder, unsp, unspecified cervical regionSpondylosi s w/o myelopathy or radiculopathy, lumbar regionOth disrd of bone density and structure, multiple sitesPolyosteoar thritis, unspecified Fe ZProvider Conversion . . [facility], [address], [place], [place], [address], [place] tel:[phone] [facility] Other primary ovarian failure Z[facility] Conversion . . [facility], [address], [place], [place], [address], [place] tel:[phone] [facility] Rheumatoid arthritis w/o rheumatoid factor, multiple sitesSpondylosis w/o myelopathy or radiculopathy, lumbar regionPolyosteoa rthritis, unspecifiedCervi joshua disc disorder, unsp, unspecified cervical regionOther intermediate teacher (current) drug therapy Jay Schafer. [address], [address], [place], [place], [address], [place]. tel:[phone] [facility], [address], [place], [place], [address], [place] tel:[phone] [facility] Other skilled nursing (current) drug therapyRheumatoi d arthritis w/o rheumatoid factor, multiple sitesLong term (current) use of aromatase inhibitorsPolyos teoarthritis, unspecifiedSpond ylosis w/o myelopathy or radiculopathy, lumbar regionCervical disc disorder, unsp, unspecified cervical region Jaymalick Schafer. [address], [place], [place], [address], [place]. tel:[phone] [facility], [address], [place], [place], [address], [place] tel:[phone] [facility] Rheumatoid arthritis w/o rheumatoid factor, multiple sitesOther intermediate teacher (current) drug therapyPolyosteo arthritis, unspecifiedChron ic kidney disease, unspecifiedObesi ty, unspecifiedMalig nant neoplasm of unspecified site of left female breast [facility] Hanh. [address], [address], [place], [place], [address], [place]. tel:[phone] [facility], [address], [place], [place], [address], [place] tel:[phone] [facility] Cervical disc disorder, unsp, unspecified cervical regionObesity, unspecifiedPolyo steoarthritis, unspecifiedSpond ylosis w/o myelopathy or radiculopathy, lumbar regionRheumatoid arthritis w/o rheumatoid factor, multiple sitesOther skilled nursing (current) drug therapy John-0 3-201 6 Jay Hanh. [address], [address], [place], [place], [address], [place]. tel:[phone] [facility], [address], [place], [place], [address], [place] tel:[phone] [facility] Rheumatoid arthritis w/o rheumatoid factor, multiple sitesSpondylosis w/o myelopathy or radiculopathy, lumbar regionOther skilled nursing (current) drug therapyPolyosteo arthritis, unspecifiedChron ic kidney disease, unspecified Jul-0 1-201 6 Jay Hanh. [address], [address], [place], [place], [address], [place]. tel:[phone] [facility], [address], [place], [place], [address], [place] tel:[phone] [facility] Rheumatoid arthritis w/o rheumatoid factor, multiple sites 4-201 5 [facility] [employer]version . . [facility], [address], [place], [place], [address], [place] tel:[phone] [facility] Chronic kidney disease, unspecifiedOther skilled nursing (current) drug therapyEssential (primary) hypertensionUnsp ecified osteoarthritis, unspecified siteObesity, unspecifiedRheum atoid arthritis w/o rheumatoid factor, multiple sites 0 1-201 5 Jay Hanh. [address], [address], [place], [place], [address], [place]. tel:[phone] [facility], [address], [place], [place], [address], [place] tel:[phone] [facility] OSTEOARTHROS NOS-UNSPECPERIPH VASCULAR DIS NOSRHEUMATOID ARTHRITISLUMBOSA CRAL SPONDYLOSISChron ic kidney disease, unspecifiedOther intermediate teacher (current) drug therapy Jay Hanh. [address], [address], [place], [place], [address], [place]. tel:[phone] [facility], [address], [place], [place], [address], [place] tel:[phone] [facility] Rheumatoid arthritis, unspecified ZProvider Conversion . . [facility], [address], [place], [place], [address], [place] tel:[phone] [facility] CERVICAL DISC DEGENLUMBOSACRAL SPONDYLOSISRHEUM ATOID ARTHRITISOSTEOAR THROS NOS-UNSPEC ZProvider Conversion . . [facility], [address], [place], [place], [address], [place] tel:[phone] [facility] Spondylosis w/o myelopathy or radiculopathy, lumbar regionAnemia, unspecifiedUnspe cified osteoarthritis, unspecified siteCervical disc disorder, unsp, unspecified cervical regionRheumatoid arthritis, unspecifiedOther intermediate teacher (current) drug therapyObesity, unspecified Jay Hanh. [address], [address], [place], [place], [address], [place]. tel:[phone] [facility], [address], [place], [place], [address], [place] tel:[phone] [facility] OBESITY NOSLONG-TERM USE MEDS NECRHEUMATOID ARTHRITIS 5 Jay Hanh. [address], [place], [place], [address], [place]. tel:[phone] [facility], [address], [place], [place], [address], [place] tel:[phone] [facility] MALAISE AND FATIGUE NECOSTEOARTHROS NOS-UNSPEC ZProvider Conversion . . [facility], [address], [place], [place], [address], [place] tel:[phone] [facility] OSTEOARTHROS NOS-UNSPECOVARIA N FAILURE NECCERVICAL DISC DEGENJOINT PAIN-MULT JTSOTHER PSORIASIS ZProvider Conversion . . [facility], [address], [place], [place], [address], [place] tel:[phone] [facility] No Information ZProvider Conversion . . [facility], [address], [place], [place], [address], [place] tel:[phone] [facility] Pain in unspecified jointUnspecified osteoarthritis, unspecified sitePain in unspecified handSpondylosis w/o myelopathy or radiculopathy, lumbar regionCervical disc disorder, unsp, unspecified cervical regionPneumonia, unspecified organismElevated erythrocyte sedimentation ratePsoriasis, unspecifiedObesi ty, unspecified Jay Schafer. [address], [place], [place], [address], [place]. tel:[phone] [facility], [address], [place], [place], [address], [place] tel:[phone] AARA [facility] CHEST PAIN NOSPNEUMONIA, ORGANISM NOSJOINT PAIN-MULT JTS Fe ZProvider Conversion . . [facility], [address], [place], [place], [address], [place] tel:[phone] AARA Montgomery CHEST PAIN NOSJOINT PAIN-MULT JTSMALAISE AND FATIGUE NECMYALGIA AND MYOSITIS NOS 5 ZProvider Conversion . . Prolonged Service, Office [facility], [address], [place], [place], [address], [place] tel:[phone] AARA [facility] Pain in unspecified jointPsoriasis, unspecifiedMyalg iaOther fatiguePneumonia , unspecified organismPleurody niaOther primary ovarian failureLow back pain 5 Jay Swati. [address], [address], [place], [place], [address], [place]. tel:[phone] Family History Family Member Type Diagnosis Age [...] Sisters Payers Payer name Insurance type Covered alliance party ID Authoriza tion(s) Medicare [id number] [employer] [place] PPO [id number] Social History Type Description Quantity Date Captured [...] Future Order: Lab Order Sed Rate (Automated) (7913), Collected on: , Sent on: Sent Future Order: Lab Order CBC (Aut omated) (3001), Sent on: Sent Future Order: Lab Order CMP (1001), Sent on: Sent Future Order: Lab Order C-Reacti ve Protein (1009), Sent on: Sent Future Order: Lab Order Sed Rate (Automated) (8546), Sent on: Sent Future Order: Lab Order CBC (Aut omated) (3001), Ordered on: Ordered Future Order: Lab Order CMP (1001), Order ed on: Ordered Future Order: Lab Order C-Reacti ve Protein (1009), Ordered on: Ordered Future Order: Lab Order Sed Rate (Automated) (6805), Ordered on: Ordered Future Order: Lab Order [...] risk of infections, bleeding, anemia, hepatitis, a severe h ypersensitivity pneumonitis, and the possibility of cirrhosis, which cannot be fully monitored by: lab tests. It was also discussed that psoriatic patients seem to have a higher risk of cirrhosis and the current recommendation from the [employer] [place] [employer] is to get surveillance liver biopsies every several years. It was emphasized that Methotrexate can cause deformities and greatly increase the risk of spontaneous abortions, and under no circumstances is the patient to become or conceive while taking Methotrexate, and would need to be methotrexate free for a period of three months prior to conception. 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 [...] risk of infections, bleeding, anemia, hepatitis, a severe h ypersensitivity pneumonitis, and the possibility of cirrhosis, which cannot be fully monitored by: lab tests. It was also discussed that psoriatic patients seem to have a higher risk of cirrhosis and the current recommendation from the [employer] [place] [employer] is to get surveillance liver biopsies every several years. It was emphasized that Methotrexate can cause deformities and greatly increase the risk of spontaneous abortions, and under no circumstances is the patient to become or conceive while taking Methotrexate, and would need to be methotrexate free for a period of three months prior to conception. 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 It was also discussed that psoriatic patients seem to have a higher risk of cirrhosis and the current recommendation from the [employer] [place] [employer] is to get surveillance liver biopsies every several years. It was emphasized that Methotrexate can cause deformities and greatly increase the risk of spontaneous abortions, and under no circumstances is the patient to become or conceive while taking Methotrexate, and would need to be methotrexate free for a period of three months prior to conception. Related to Other skilled nursing (current) drug therapy Educated patient on OA [...] risk of infections, bleeding, anemia, hepatitis, a severe h ypersensitivity pneumonitis, and the possibility of cirrhosis, which cannot be fully monitored by: lab tests. It was also discussed that psoriatic patients seem to have a higher risk of cirrhosis and the current recommendation from the [employer] [place] [employer] is to get surveillance liver biopsies every several years. It was emphasized that Methotrexate can cause deformities and greatly increase the risk of spontaneous abortions, and under no circumstances is the patient to become or conceive while taking Methotrexate, and would need to be methotrexate free for a period of three months prior to conception. 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 XRay +. [...] risk of infections, bleeding, anemia, hepatitis, a severe h ypersensitivity pneumonitis, and the possibility of cirrhosis, which cannot be fully monitored by: lab tests. It was also discussed that psoriatic patients seem to have a higher risk of cirrhosis and the current recommendation from the [employer] [place] [employer] is to get surveillance liver biopsies every several years. It was emphasized that Methotrexate can cause deformities and greatly increase the risk of spontaneous abortions, and under no circumstances is the patient to become or conceive while taking Methotrexate, and would need to be methotrexate free for a period of three months prior to conception. 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 It was also discussed that psoriatic patients seem to have a higher risk of cirrhosis and the current recommendation from the [employer] [place] [employer] is to get surveillance liver biopsies every several years. It was emphasized that Methotrexate can cause deformities and greatly increase the risk of spontaneous abortions, and under no circumstances is the patient to become or conceive while taking Methotrexate, and would need to be methotrexate free for a period of three months prior to conception. 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 It was also discussed that psoriatic patients seem to have a higher risk of cirrhosis and the current recommendation from the [employer] [place] [employer] is to get surveillance liver biopsies every several years. It was emphasized that Methotrexate can cause deformities and greatly increase the risk of spontaneous abortions, and under no circumstances is the patient to become or conceive while taking Methotrexate, and would need to be methotrexate free for a period of three months prior to conception. 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 It was also discussed that psoriatic patients seem to have a higher risk of cirrhosis and the current recommendation from the [employer] [place] [employer] is to get surveillance liver [...] the need for regular monitoring by an radar mechanic. 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 XRay +. [...] risk of infections, bleeding, anemia, hepatitis, a severe h ypersensitivity pneumonitis, and the possibility of cirrhosis, which cannot be fully monitored by: lab tests. It was also discussed that psoriatic patients seem to have a higher risk of cirrhosis and the current recommendation from the [employer] [place] [employer] is to get surveillance liver [...] the need for regular monitoring by an radar mechanic. 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 XRay +. [...] risk of infections, bleeding, anemia, hepatitis, a severe h ypersensitivity pneumonitis, and the possibility of cirrhosis, which cannot be fully monitored by: lab tests. It was also discussed that psoriatic patients seem to have a higher risk of cirrhosis and the current recommendation from the [employer] [place] [employer] is to get surveillance liver [...] the need for regular monitoring by an radar mechanic. 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 Related to Other skilled nursing (current) drug therapy Discussed with freddie king [...] for clarifications or questions. Related to Other skilled nursing (current) drug therapy Educated patient on OA and conservative strategies like - weight loss, PT, exercise, local heat, local gels. Related to Unspecified osteoarthritis, unspecified site Educated patient on OA and conservative strategies like - weight loss, PT, exercise, local heat, local gels. 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 C VENICE 4. She [...] for clarifications or questions. 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 Recommend fup DXA. 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
[2024-06-26 11:01] LABS: Glucose Point of Care 89 mg/dl (65-105)
== END 2024-06-26 10:26 | disposition home or self-care (01) ==
PROVIDERS: PCP Internal Medicine; Visit Provider Internal Medicine
DX: R91.1 Solitary pulmonary nodule (principal); K44.9 Diaphragmatic hernia without obstruction or gangrene
CPT/HCPCS: 78815; A9552

== ENCOUNTER 2024-10-11 12:24 | Outpatient (CLI) | payer MEDICARE, SELFPAY ==
--- NOTE | ~2024-10-11 | XR_ITS ---
XR chest 2V 10/11/2024 13:13 Indication: Dyspnea. A. fib. Procedure: 2 view chest Comparison: Comparison to multiple prior studies sequentially, with oldest reviewed study dated 05/2024. Findings: Heart size normal. Large hiatal hernia. There is a pulmonary nodule in the right lung base which has increased in size compared with 05/09/2024r measuring 1.4 x 1.2 cm compared with 1.1 x 1 cm on previous examination. Heart size normal. No acute focal pneumonia, pleural effusion or pneumothor ax. Impression: 1: Enlarging right basilar nodule, concerning for bronchogenic carcinoma. Recommend further evaluatio n with percutaneous biopsy or repeat PET-FDG examination. Reviewed, dictated and finalized at location A. Impression: 1: Enlarging right basilar nodule, concerning for bronchogenic carcinoma. Recom mend further evaluation with percutaneous biopsy or repeat PET-FDG examination.
--- OUTSIDE RECORDS SUMMARY | 2024-10-11 12:59 | XMS_ITS | Referral Summary ---
Author Organization [facility] [address] [place] [address] Care Team Providers Care Planer Setup Operator Name Role Phone Yosvany Collins MD Primary Care Provider [phone] Allergies Active Allergy Reactions Criticality Noted Date Comments Penicillin Rash Medium 06/16/2022 Medications levothyroxine (SYNTHROID) 50 mcg tablet Take 0.5 tablets (25 mcg total) by mouth daily 06/07/2022 Active montelukast (SINGULAIR) 10 mg tablet Take 1 tablet (10 mg total) by mouth nightly Active spironolactone- hydroCHLOROthia zide (ALDACTAZIDE) 25-25 mg per tablet Take 1 tablet by mouth daily Active pantoprazole DR (PROTONIX) 40 mg EC tabletIndicatio ns:Treatment of Non-Bleeding Gastric Disorder Take 1 tablet (40 mg total) by mouth daily 30 tablet 05/12/2024 Active Active Problems Problem Noted Date Diagnosed Date GI bleed 05/10/2024 Bilateral impacted cerumen 06/16/2022 Sensorineural hearing loss (SNHL) of both ears 0 06/16/2022 Social History Tobacco Use Types Packs/Day Years Used Date Smoking Tobacco: Never Smokeless Tobacco: Never Tobacco Cessation:Counseling Given: Not Answered [facility] Utilities Answer Date Recorded In the [...] often do you attend chur ch or scientologist services? Never 05/10/2024 Do you belong to any clubs o r organizations such as samaritan groups, unions, fraternal or athletic groups, or [...] any time in the past 12 m [facility], were you homeless or living in a correction (including now)? No 05/10/2024 Personal Safety Answer Date Recorded Have you ever been in or are you currently in a harmful physical or emotional relationship or is someone making you feel afraid or unsafe? Denies 05/10/2024 Comments No Sex and Gender Information Value Date Recorded Sex Assigned at Not on file Legal Sex Female 3:47 PM ALGEBRA TUTOR Gender Identity Not on file Sexual Orientation Not on file Last Filed Vital Signs Vital Sign Reading Time Taken Comments Blood Pressure 149/68 05/12/2024 12:56 PM ALGEBRA TUTOR Pulse 95 05/12/2024 12:56 PM ALGEBRA TUTOR Temperature 36.5 C (97.7 F) 05/12/2024 12:56 PM ALGEBRA TUTOR Respiratory Rate 18 05/11/2024 10:11 AM ALGEBRA TUTOR Oxygen Saturation 100% 05/12/2024 12:56 PM ALGEBRA TUTOR Inhaled Oxygen Concentration - - Weight 91.2 kg (201 lb) 05/11/2024 8:32 AM ALGEBRA TUTOR Height 165.1 cm (5' 5) 05/11/2024 8:32 AM ALGEBRA TUTOR Body Mass Index 33.45 05/11/2024 8:32 AM ALGEBRA TUTOR Plan of Treatment Not on file Insurance MEDICARE [facility] MEDICARE [facility] Advance Directives For more information, please contact: [phone] Documents on File Type Date Recorded Patient Data Warehouse Specialist Expl anation ADVANCE DIRECTIVE 05/14/2024 2:11 PM POLST ADVANCE DIRECTIVE 05/14/2024 1:44 PM LIVING WILL ADVANCE DIRECTIVE 05/14/2024 1:44 PM POWER OF SCIENTIFIC WRITER-MEDICAL * Full Code (Latest Code Status on File) Date Activated Date Inactivated Comments 05/10/2024 4:45 AM 05/12/2024 9:57 PM Care Teams Planer Setup Operator Relationship Specialty Start Date End Date Yosvany Collins MD PCP - General Internal Medicine 05/13/22
--- OUTSIDE RECORDS SUMMARY | 2024-10-11 12:59 | XMS_ITS | Clinical Summary ---
Author Organization [facility] [address] [place] [address] Care Team Providers Care Mastic Worker Name Role Phone Yosvany Collins MD Primary Care Provider [phone] Allergies Active Allergy Reactions Criticality Noted Date [...] loss (SNHL) of both ears 0 06/16/2022 Surgical History Surgery Date Site/Laterality Comments HYSTERECTOMY [...] Tobacco: Never Tobacco Cessation:Counseling Given: Not Answered [facility] Utilities Answer Date Recorded In the [...] often do you attend chur ch or restorationist services? Never 05/10/2024 Do you belong to any clubs o r organizations such as anabaptism groups, unions, fraternal or athletic groups, or [...] in the past 12 m [facility], were you homeless or living in a nursing home (including now)? No 05/10/2024 Personal Safety Answer Date Recorded Have you ever been in or are you currently in a harmful physical or emotional relationship or is someone making you feel afraid or unsafe? Denies 05/10/2024 Comments No Sex and Gender Information Value Date Recorded Sex Assigned at Not on file Legal Sex Female 3:47 PM NUISANCE WILDLIFE SPECIALIST Gender Identity Not on file Sexual Orientation Not on file Obstetrics History Last Filed Vital Signs Vital Sign Reading Time Taken Comments Blood Pressure 149/68 05/12/2024 12:56 PM NUISANCE WILDLIFE SPECIALIST Pulse 95 05/12/2024 12:56 PM NUISANCE WILDLIFE SPECIALIST Temperature 36.5 C (97.7 F) 05/12/2024 12:56 PM NUISANCE WILDLIFE SPECIALIST Respiratory Rate 18 05/11/2024 10:11 AM NUISANCE WILDLIFE SPECIALIST Oxygen Saturation 100% 05/12/2024 12:56 PM NUISANCE WILDLIFE SPECIALIST Inhaled Oxygen Concentration - - Weight 91.2 kg (201 lb) 05/11/2024 8:32 AM NUISANCE WILDLIFE SPECIALIST Height 165.1 cm (5' 5) 05/11/2024 8:32 AM NUISANCE WILDLIFE SPECIALIST Body Mass Index 33.45 05/11/2024 8:32 AM NUISANCE WILDLIFE SPECIALIST Plan of Treatment Health Maintenance Due Date Last Done Comments Depression Screening 1935 Hepatitis B Screening 09/14/1953 Well Visit 65+ 09/14/2000 Covid-19 Vaccine (2023-2 5 season) 2024 02/07/2024, 01/31/2023, 05/13/2022, Additional history exists Fall Risk Assessment 05/12/2025 05/12/2024 DTaP/Tdap/Td Vaccine (2 - Td or Tdap) 09/25/2032 09/25/2022 Pneumococcal vaccine 65+ Completed 10/28/2022 Zoster Vaccine Completed 11/28/2023, 09/05/2023 Influenza Vaccine Completed 02/07/2024, , 03/09/2022 Insurance MEDICARE [facility] Address: [address] [place] [address] MEDICARE [employer] Advance Directives For more information, please contact: [phone] Documents on File Type Date Recorded Patient Insurance Collector Expl anation ADVANCE DIRECTIVE 05/14/2024 2:11 PM POLST ADVANCE DIRECTIVE 05/14/2024 1:44 PM LIVING WILL ADVANCE DIRECTIVE 05/14/2024 1:44 PM POWER OF DROP COUNT ASSOCIATE-MEDICAL * Full Code (Latest Code Status on File) Date Activated Date Inactivated Comments 05/10/2024 4:45 AM 05/12/2024 9:57 PM Care Teams Mastic Worker Relationship Specialty Start Date End Date Yosvany Collins MD PCP - General Internal Medicine 05/13/22
[2024-10-11 13:08] LABS: Basophils Absolute Auto 0.09 K/mm3 (0.00-0.10); Basophils Percent Auto 0.8 % (0.0-1.0); Eosinophils Absolute Auto 0.31 K/mm3 (0.02-0.50); Eosinophils Percent Auto 2.7 % (1.0-6.0); Hematocrit 43.5 % (35.0-42.0); Hemoglobin 13.7 g/dL (11.7-13.8); Immature Granulocyte Absolute 0.03 K/mm3 (0.00-0.00); Immature Granulocyte Percent A 0.3 % (0.0-0.0); Immature Platelet Fraction Pct 8.7 % (1.0-7.0); Lymphocytes Absolute Auto 3.88 K/mm3 (1.10-4.50); Lymphocytes Percent Auto 33.6 % (18.0-42.0); Mean Corpuscular HGB Conc 31.5 g/dL (32-36); Mean Corpuscular Volume 88.8 fL (78.0-102.0); Mean Platelet Volume 13.1 fl (9.2-11.8); Monocytes Absolute Auto 0.77 K/mm3 (0.10-0.90); Monocytes Percent Auto 6.7 % (2.0-11.0); Neutrophils Absolute Auto 6.47 K/mm3 (1.70-7.20); Neutrophils Percent Auto 55.9 % (50.0-70.0); Platelet Count Result 224 K/mm3 (150-420); Red Cell Distribution Width 17.9 % (11.6-14.4); White Blood Count 11.6 K/mm3 (4.8-10.8)
[2024-10-11 13:23] LABS: Alanine Aminotransferase 21 U/L (6-35); Albumin Level 4.2 g/dL (3.5-5.1); Alkaline Phosphatase 115 U/L (38-126); Anion Gap 7 mmol/L (4-12); Aspartate Amino Transferase 35 U/L (14-36); Bilirubin,Total 0.7 mg/dL (0.2-1.3); Blood Urea Nitrogen 22 mg/dL (7-17); Calcium 9.4 mg/dL (8.4-10.2); Carbon Dioxide 22 mmol/L (22-30); Chloride 109 mmol/L (98-107); Estimated Glomerular Filt Rate 39; Glucose 90 mg/dL (65-110); Magnesium 1.8 mg/dL (1.6-2.3); Osmolality Calculated 289 mOsm/kg (285-295); Potassium 4.3 mmol/L (3.4-5.0); Sodium 138 mmol/L (137-145); Total Protein 6.8 g/dL (6.3-8.2)
[2024-10-11 13:40] LABS: Free T4 Free Thyroxine 1.49 ng/dL (0.78-2.19)
[2024-10-11 14:59] LABS: Free T3 3.21 pg/mL (2.18-3.98)
[2024-10-12 14:47] LABS: NT Pro B Type Natriuretic Pept 2430 pg/mL (19.9-100)
== END 2024-10-11 12:25 | disposition home or self-care (01) ==
PROVIDERS: PCP Internal Medicine; Visit Provider Internal Medicine
DX: I48.91 Unspecified atrial fibrillation (principal); R06.00 Dyspnea, unspecified; R91.8 Other nonspecific abnormal finding of lung field
CPT/HCPCS: 36415; 71046; 80053; 83735; 83880; 84439; 84443; 84481; 85025; 85055